=== PATIENT | male | born 1970 | race Caucasian/White ===

== ENCOUNTER → 2018-03-06 11:13 | Outpatient (CLI) | payer MEDICARE, MEDICAID, SELFPAY ==
--- NOTE | 2018-03-06 11:18 | DI.RAD.S_ITS ---
PROCEDURE: XR HAND RT MIN 3V INDICATIONS: 47 year-old male with right thumb swelling after trauma. TECHNIQUE: 3 views of the hand(s) acquired. COMPARISON: None. FINDINGS: Bones: Comminuted oblique fracture of the first proximal phalangeal shaft and neck is present, with possible intra-articular extension into the interphalangeal joint. There is age indeterminate comminuted fracture of the third distal phalangeal tuft as well, with mild displacement. Carpal bones are normally aligned. No suspicious bony lesions. Soft tissues: No suspicious soft tissue calcifications. IMPRESSION: 1. Mildly displaced comminuted oblique fracture of the first phalangeal shaft and neck, with possible intra-articular extension. 2. Additional mildly displaced comminuted fracture of the third distal phalangeal tuft. Dictated by: Jevon Ochoa M.D. on 03/06/2018 at 12:05 Approved by: Jevon Ochoa M.D. on 03/06/2018 at 12:11
[2018-03-06 12:33] LABS: Cholesterol 197 mg/dL (140-199); HDL Cholesterol 61 mg/dL (40-60); LDL Cholesterol Calculated 119 mg/dL (<100); Triglycerides 86 mg/dL (35-150)
== END ==
PROVIDERS: PCP Family Medicine; Visit Provider Family Medicine
DX: Z82.49 Family history of ischemic heart disease and other diseases of the circulatory system (principal); M79.89 Other specified soft tissue disorders
CPT/HCPCS: 36415; 73130; 80061

== ENCOUNTER 2018-03-21 12:13 | Outpatient (RCR) | payer MEDICARE, MEDICAID, SELFPAY ==
--- NOTE | 2018-03-22 15:17 | OT.OP.EVAL ---
Visit Care Team Role Provider Type Jyotsna Sky DO Attending Provider Physician Primary Care Provider Specialty: Family Practice Address: [address] [place] [address], [id number] Email: [email or web address] Occupational Therapy Initial Evaluation OT Outpatient Adult Evaluation Start: 03/22/18 14:36 Freq: Status: Active Protocol: Document 03/21/18 13:30 AMS (Rec: 03/22/18 15:17 AMS [email or web address]) General Information Visit Start Time 12:30 Visit Stop Time 13:30 Total Visit Minutes 60 Visit Number [id number] Plan of Care Dates 03/21/18-05/02/18 Treatment Setting Outpatient Care Note Type Initial Evaluation Referring Physician Jyotsna kSy D.O. Reason for Referral Right thumb fracture; decreased ROM of R thumb Identification Confirmed Yes Identification Confirmed By Mother Medical History Pt is a 47 year-old male referred to outpatient OT secondary to right thumb fracture with orders to address ROM. Per Mother's written report (Health History intake form for patient), Aniceto broke his right thumb approximately 1 and 1/2 months ago from seizure fall. Patient and his parents did not know the thumb was broken until recently. PMH: static encephalopathy; seizure disorder. Right hand x-ray was performed on 03/06/2018: Impression was as follows: Mildly displaced comminuted oblique fracture of the first phalangeal shaft and neck with possible intra-articular extension. Additional mildly displaced comminuted fracture of the third distal phalangeal tuft. Previous Therapy/Therapies No Social History Patient resides with his parents. Therapy Pain Assessment When Pain Assessed pre-tx Right Finger Intensity 0 Scale Used Numeric (1 - 10) Patient Questionnaires Quick Dash UE Score 0 Quick Dash UE Impairment 0% Impaired (Score 0) ADLs Comments Injury is not impacting function IADLs Comments Injury is not impacting function Observations Swelling Location Right hand Severity Mild Range of Motion Left IP Flex AROM (degrees) 80 Comments Able to actively oppose L thumb to base of L 5th digit. Able to actively oppose L thumb to each pad of digits 2- 5 of L hand. Right IP Flex AROM (degrees) 50 IP Flex PROM (degrees) 60 IP Ext AROM (degrees) WNL Comments Able to actively oppose R thumb to middle phalanx of R 5th digit; unable to actively oppose R thumb to base of R 5th digit. Able to actively oppose R thumb to each pad of digits 2-5 of R hand. Muscle Testing Right Thumb Flexion (fingers C8) 5 Normal Extension (thumb C8) 5 Normal Adduction 5 Normal Abduction (fingers T1) 5 Normal Sensation Assessment Summary Comments Impaired sensation. Mother reported that Aniceto has a ' high pain tolerance'. (-) verbal or non-verbal response to ice massage x 4 minutes for demonstration relative to it being cold. (-) verbal or non- verbal response to initial crepitus with passive range of motion of thumb in the IPJ noted by therapist. (-) awareness of mild swelling present in distal right third digit and right thumb. (-) recent icing. Patient reported icing it for 2 weeks daily initially. Fine Motor Hand Preference Right Goals Treatment Therapeutic exercises. HEP initiated/completed. Education completed in re: swelling management. Instructed in light manual massage and use of ice massage as tolerated. Discussed edema garment options; however, given reported exacerbation of skin condition w/ increased temperatures - therapist discouraged use/personal purchase. Instructed in active ROM and positioning to support swelling management. Instructed in joint blocking w / focus on IPJ AROM; functional AROM of right thumb (opposition/circles). Instructed in PROM. Patient and Mother denied questions; Mother wrote down donovan words and will support carry-over. Nursing Home Goals 1. Patient will be modified independent with right thumb/ hand home exercise program utilizing provided written and visual instructions. Assessment/Plan Patient Response Good Rehabilitation Potential Good Impairments Identified Coordination/Dexterity Flexibility Range of Motion Swelling Additional Impairments Identified Impaired sensation Treatment Assessment Pt is a 47 year-old male referred to outpatient OT secondary to right thumb fracture with orders to address ROM. Per Mother's written report (Health History intake form for patient), Aniceto broke his right thumb approximately 1 and 1/2 months ago from seizure fall. Patient and his parents did not know the thumb was broken until recently. PMH: static encephalopathy; seizure disorder. Right hand x-ray was performed on 03/06/2018: Impression was as follows: Mildly displaced comminuted oblique fracture of the first phalangeal shaft and neck with possible intra-articular extension. Additional mildly displaced comminuted fracture of the third distal phalangeal tuft. Findings: Right hand dominant ; injury is not impacting function (relative to ADLs); no pain/discomfort; normal strength of right thumb; impaired sensation; mild swelling; decreased active range of motion of the right thumb; decreased functional ROM of the right thumb. Recommendations: Discussed scheduling of follow-up appointment with patient and Mother to address progress. Mother reported that she would like to focus on current HEP and make follow-up in 2-3 weeks if needed. Thus, therapist to follow-up as needed. Home Exercise Program HEP initiated/completed. Education completed in re: swelling management. Instructed in light manual massage and use of ice massage as tolerated. Discussed edema garment options; however, given reported exacerbation of skin condition w/ increased temperatures - therapist discouraged use/personal purchase. Instructed in active ROM and positioning to support swelling management. Instructed in joint blocking w / focus on IPJ AROM; functional AROM of right thumb (opposition/circles). Instructed in PROM. Patient and Mother denied questions; Mother wrote down donovan words and will support carry-over. Reviewed with Patient Goals Home Exercise Program Patient Understanding Good Length of Treatment Recommended Other Comment 6 weeks; follow-up if needed Therapeutic Contents Active Range of Motion Client Education Home Exercise Program Manual Therapy Education Stretching/Flexibility Activities Therapeutic Activities Therapeutic Exercises Modalities Modalities As Needed As Described Types of Modalities Contrast Bath Ice Massage Ultrasound Patient Instruction Home Exercise Program Plan of Care Questions/Concerns Other Patient Recommendations Other Comment Mother to schedule follow-up appt if determined necessary in ~ 2-3 weeks
--- NOTE | 2018-04-22 07:59 | OT.OP.TRT ---
Visit Care Team Role Provider Type Jyotsna Sky DO Attending Provider Physician Primary Care Provider Specialty: Family Practice Address: [address] [place] [address], [address] Email: [email or web address] Occupational Therapy Treatment Note OT Outpatient Treatment Note - Adult Start: 04/22/18 07:53 Freq: Status: Active Protocol: Document 04/22/18 07:54 AMS (Rec: 04/22/18 07:58 AMS [id number]) OT Outpatient Adult Treatment Note Visit Information Plan of Care Dates 03/21/18-05/02/18 Setting Treatment Setting Outpatient Care General Information General Information Pt is a 47 year-old male referred to outpatient OT secondary to right thumb fracture with orders to address ROM. Per Mother's written report (Health History intake form for patient), Aniceto broke his right thumb approximately 1 and 1/2 months ago from seizure fall. Patient and his parents did not know the thumb was broken until recently. PMH: static encephalopathy; seizure disorder. - Subjective Observations Patient to be discharged from Occupational Therapy secondary to not being seen by primary therapist since time of initial evaluation (03/21/18). - Objective Care Home Goals ALL GOALS DISCHARGED 1. Patient will be modified independent with right thumb/ hand home exercise program utilizing provided written and visual instructions. *Patient was mod I w/ HEP developed at time of initial evaluation. HEP was not upgraded due to patient not being seen for follow-up visit(s). - - Assessment Assessment of Improvement Patient to be discharged from Occupational Therapy secondary to not being seen by primary therapist since time of initial evaluation (03/21/18). - Plan Therapy Recommendations Discharge from Occupational Therapy
== END 2018-05-09 13:32 ==
LOC: OT 12:13
PROVIDERS: PCP Family Medicine; Visit Provider Family Medicine
DX: S62.501A Fracture of unspecified phalanx of right thumb, initial encounter for closed fracture (principal); M25.641 Stiffness of right hand, not elsewhere classified
CPT/HCPCS: 97110; 97165

== ENCOUNTER → 2019-04-25 10:48 | Outpatient (CLI) | payer MEDICARE, MEDICAID, SELFPAY ==
[2019-04-25 12:15] LABS: Add Manual Diff / Slide Review NO; Basophils Absolute Auto 0 /uL (0-100); Basophils Percent Auto 0.4 % (0-2); Eosinophils Absolute Auto 400 /uL (0-450); Eosinophils Percent Auto 6.6 % (2-4); Hematocrit 44.1 % (41-53); Lymphocytes Absolute Auto 1800 /uL (1100-4500); Lymphocytes Percent Auto 29.4 % (25-40); Mean Corpuscular HGB Conc 34.1 % (30-36); Mean Corpuscular Volume 96.6 fL (80-100); Monocytes Absolute Auto 400 /uL (0-900); Monocytes Percent Auto 6.4 % (3-14); Neutrophils Absolute Auto 3500 /uL (1500-7000); Neutrophils Percent Auto 57.2 % (50-75); Platelet Count 276 X10^3/uL (150-400); Red Blood Cell Count 4.56 X10^6/uL (4.5-5.9); Red Cell Distribution Width 12.6 % (11.6-14.8); White Blood Cell Count 6.1 X10^3/uL (4.5-11.0)
[2019-04-25 13:02] LABS: Alanine Aminotransferase 29 IU/L (21-72); Albumin 4.1 g/dL (3.5-5.0); Albumin Globulin Ratio 1.3 (1.0-2.8); Alkaline Phosphatase 77 U/L (38-126); Aspartate Aminotransferase 26 IU/L (17-59); Bilirubin Total 0.5 mg/dL (0.2-1.3); Bilirubin Unconjugated 0.3 mg/dL (0.0-1.1); Globulin 3.1 g/dL (1.7-4.1); HEMOLYSIS < 15 (0-50); Phenytoin / Dilantin 16.7 ug/mL (10-20); Total Protein 7.2 g/dL (6.3-8.2)
[2019-04-29 11:07] LABS: Levetiracetam Keppra 9.1 mcg/mL (12.0-46.0)
== END ==
PROVIDERS: Family Provider Family Medicine; PCP Family Medicine; Visit Provider Internal Medicine
DX: R56.9 Unspecified convulsions (principal)
CPT/HCPCS: 36415; 80076; 80177; 80184; 80185; 80188; 80203; 85025

== ENCOUNTER 2019-04-27 22:56 | Emergency (ER) | payer MEDICARE, MEDICAID, SELFPAY ==
[2019-04-27 23:08] VITALS: BP 129/95; PULSE 86; RESP 18; TEMP 36.9; O2SAT 96; BMI 35.1
--- NOTE | 2019-04-27 23:55 | ED_ITS ---
HPI - Ear Problem General Chief complaint: Ear Stated complaint: q-tip stuck in ear Time Seen by Provider: 04/27/19 23:00 Source: patient and family Mode of arrival: ambulatory Limitations: no limitations History of Present Illness HPI Narrative: 48M non smoker with history of seizures and developmental delay presents with both parents and the chief complaint of a portion of cotton from a Q tip stuck in his left ear since earlier today. He has no pain, drainage or bleeding. No change in level of hearing. MD Complaint: foreign body Location: left ear Duration: constant Severity: mild Relieving factors: nothing Exacerbating factors: nothing Discharge from ear: no Treatment prior to arrival: none Related Data Home Medications Medication Instructions Recorded Confirmed CA PANTOTHENATE/FOLIC ACID/VIT 1 tab PO QDAY #0 08/31/11 06/24/18 (MULTIVITAMIN) lorazepam 0.5 mg tablet 0.5 mg PO BEDTIME 03/05/18 06/24/18 triamcinolone acetonide 0.1 % 1 applictn TOP DAILY 03/05/18 06/24/18 topical cream guifenisen PO 06/24/18 06/24/18 Previous Rx's Medication Instructions Recorded levetiracetam 1,000 mg tablet 1,000 mg PO TID #270 tabs 01/23/19 primidone 250 mg tablet 250 mg PO TID #270 tab 01/23/19 phenytoin sodium extended 100 mg See Rx Instructions PO .COMPLEX 03/21/19 capsule #270 cap zonisamide 100 mg capsule See Rx Instructions PO .COMPLEX 03/21/19 #450 cap Allergies Allergy/AdvReac Type Severity Reaction Status Date / Time No Known Drug Allergies Allergy Verified 04/27/19 23:08 Review of Systems Constitutional Denies chills, Denies fever(s), Denies lethargy and Denies weakness Eyes Denies change in vision, Denies eye discharge, Denies irritation and Denies loss of vision ENT Ears, Nose, Mouth, and Throat: Reports as per HPI, Denies change in voice, Denies neck pain and Denies sore throat Cardiovascular Denies chest pain, Denies irregular heart rhythm, Denies lightheadedness, Denies palpitations, Denies dyspnea, Denies dyspnea on exertion and Denies orthopnea Respiratory Denies cough, Denies dyspnea, Denies dyspnea on exertion and Denies wheezing Gastrointestinal Gastrointestinal: Denies abdominal pain, Denies change in bowel habits, Denies diarrhea, Denies nausea and Denies vomiting Genitourinary Denies hematuria, Denies flank pain, Denies urinary incontinence and Denies urinary urgency Musculoskeletal Denies neck pain Integumentary/Breasts Denies pruritus, Denies erythema, Denies rash and Denies wounds Neurologic Denies confusion, Denies loss of vision and Denies weakness Psychiatric Denies anxiety, Denies confusion, Denies depression, Denies homicidal ideation and Denies suicidal ideation Endocrine Denies palpitations Hematologic/Lymphatic Denies easy bruising Allergic/Immunologic Denies wheezing [facility] Medical History Hemorrhoid (Chronic ~02/15/14) Seizure (Chronic) Static encephalopathy (Chronic) Family History Father CAD (coronary artery disease) Mother CAD (coronary artery disease) Social History Smoking Status: Never smoker Family History Father CAD (coronary artery disease) Mother CAD (coronary artery disease) Social History Smoking Status: Never smoker Exam Narrative Exam Narrative: GEN: AOx3 and in mild distress EYES: Pupils are equal, round, and reactive to light and accommodation. Extraoccular muscles are intact bilaterally. There is no subconjunctival hemorrhage or exudate. ENT: cotton swab noted deep in Left external auditory canal, no swelling, bleeding, or discharge CHEST: Lungs are clear to auscultation bilaterally and free of wheezes, rales, or rhonchi. Heart rate is regular rhythm, there are no murmurs, clicks, rubs, or gallops. There is no chest wall tenderness. ABD: Abdomen is soft and nontender. There is no guarding or rebound. Bowel sounds are normal in all 4 quadrants. There is no mass or organomegaly. EXT: Full painless ROM of all extremities with no loss of sensation or strength. SKIN: Warm, pink, and dry. No erythema or rash Initial Vital Signs Initial Vital Signs: Vital Signs Temperature 98.4 F 04/27/19 23:08 Pulse Rate 86 08/04/19 23:08 Respiratory Rate 18 04/27/19 23:08 Blood Pressure 129/95 H 04/27/19 23:08 Pulse Oximetry 96 04/27/19 23:08 Procedures Foreign Body EAR Location: ear canal (L) Foreign Body Suspected: other TM intact pre-procedure: yes Foreign Body Removal Technique: instrumentation Tympanic Membrane Intact Post Procedure: Yes Patient Tolerated Procedure: Well Complications: none Course Vital Signs - 8 hr 04/27/19 23:08 Temperature 98.4 F Pulse Rate 86 Respiratory Rate 18 Blood Pressure 129/95 H Pulse Oximetry 96 Discharge Plan Departure Patient Disposition: Home Clinical Impression: Foreign body of ear, left Qualifiers: Encounter type: initial encounter Qualified Code(s): T16.2XXA - Foreign body in left ear, initial encounter Instructions: DI for Removal of Foreign Body From Ear Activity Restrictions/Additional Instructions: *You have been diagnosed with [removal of foreign body from left ear] *What to do: * continue to take medications as directed *Follow up with your primary care provider in 2-3 days, call for an appointment. Let them know you were seen in the Emergency Department and that we ask that you be seen in follow up *Return to ER if you should have any new, worsening or concerning symptoms Prescriptions: No Action CA PANTOTHENATE/FOLIC ACID/VIT (MULTIVITAMIN) 1 tab PO QDAY Qty: 0 RF: 0 levetiracetam [Keppra] 1,000 mg tablet 1,000 mg PO TID Qty: 270 RF: 0 primidone 250 mg tablet 250 mg PO TID Qty: 270 RF: 0 zonisamide 100 mg capsule See Rx Instructions PO .COMPLEX Qty: 450 RF: 0 phenytoin sodium extended [Dilantin Extended] 100 mg capsule See Rx Instructions PO .COMPLEX Qty: 270 RF: 0 triamcinolone acetonide 0.1 % cream 1 applictn TOP DAILY RF: 0 lorazepam 0.5 mg tablet 0.5 mg PO BEDTIME RF: 0 guifenisen PO RF: 0 Referrals: Damion López MD [Physician] - Jyotsna Sky DO [Primary Care Provider] -
== END 2019-04-28 00:04 | disposition home or self-care (01) ==
PROVIDERS: Emergency Provider Emergency Medicine; Family Provider Family Medicine; PCP Family Medicine
DX: T16.2XXA Foreign body in left ear, initial encounter (principal)
CPT/HCPCS: 99282

== ENCOUNTER → 2020-05-27 11:11 | Outpatient (CLI) | payer MEDICARE, MEDICAID, SELFPAY ==
[2020-05-27 13:01] LABS: Add Manual Diff / Slide Review NO; Basophils Absolute Auto 0 /uL (0-100); Basophils Percent Auto 0.4 % (0-2); Eosinophils Absolute Auto 200 /uL (0-450); Eosinophils Percent Auto 4.1 % (2-4); Hematocrit 43.6 % (41-53); Hemoglobin 14.6 g/dL (13.5-17.5); Lymphocytes Absolute Auto 1700 /uL (1100-4500); Lymphocytes Percent Auto 29.5 % (25-40); Mean Corpuscular HGB Conc 33.6 % (30-36); Mean Corpuscular Hemoglobin 32.4 PG (26-34); Mean Corpuscular Volume 96.6 fL (80-100); Monocytes Absolute Auto 400 /uL (0-900); Neutrophils Absolute Auto 3300 /uL (1500-7000); Platelet Count 264 X10^3/uL (150-400); Red Blood Cell Count 4.52 X10^6/uL (4.5-5.9); Red Cell Distribution Width 12.5 % (11.6-14.8); White Blood Cell Count 5.6 X10^3/uL (4.5-11.0)
[2020-05-27 13:25] LABS: Phenytoin / Dilantin 20.2 ug/mL (10-20)
[2020-06-01 06:05] LABS: Levetiracetam Keppra 11.7 ug/mL (10.0-40.0)
[2020-06-03 11:36] LABS: Zonisamide 17.4 ug/mL (10.0-40.0)
== END ==
PROVIDERS: Family Provider Family Medicine; PCP Family Medicine; Referring Provider Internal Medicine; Visit Provider Internal Medicine
DX: R56.9 Unspecified convulsions (principal)
CPT/HCPCS: 36415; 80177; 80184; 80185; 80188; 80203; 85025

== ENCOUNTER → 2021-04-11 10:43 | Outpatient (CLI) | payer MEDICARE, MEDICAID, SELFPAY ==
[2021-04-11 11:23] LABS: Add Manual Diff / Slide Review NO; Basophils Absolute Auto 0 /uL (0-100); Basophils Percent Auto 0.4 % (0-2); Eosinophils Absolute Auto 500 /uL (0-450); Eosinophils Percent Auto 7.1 % (2-4); Hematocrit 44.1 % (41-53); Lymphocytes Absolute Auto 2000 /uL (1100-4500); Lymphocytes Percent Auto 30.6 % (25-40); Monocytes Absolute Auto 500 /uL (0-900); Monocytes Percent Auto 7.4 % (3-14); Neutrophils Absolute Auto 3500 /uL (1500-7000); Neutrophils Percent Auto 54.5 % (50-75); Platelet Count 245 X10^3/uL (150-400); Red Blood Cell Count 4.54 X10^6/uL (4.5-5.9); Red Cell Distribution Width 12.7 % (11.6-14.8); White Blood Cell Count 6.4 X10^3/uL (4.5-11.0)
[2021-04-11 11:32] LABS: Alanine Aminotransferase 22 IU/L (<50); Albumin 4.1 g/dL (3.5-5.0); Albumin Globulin Ratio 1.4 (1.0-2.8); Alkaline Phosphatase 71 U/L (38-126); Aspartate Aminotransferase 26 IU/L (17-59); BUN Creatinine Ratio 17.7 (6-22); Bilirubin Total 0.3 mg/dL (0.2-1.3); Blood Urea Nitrogen 14 mg/dL (9-20); Calcium 8.8 mg/dL (8.4-10.2); Carbon Dioxide 27 mmol/L (22-32); Chloride 108 mmol/L (98-107); Cholesterol 188 mg/dL (140-199); Estimated Glomerular Filt Rate > 60.0 mL/min (>60); Glucose 93 mg/dL (70-100); HDL Cholesterol 66 mg/dL (40-60); HEMOLYSIS < 15 (0-50); LDL Cholesterol Calculated 104 mg/dL (<100); Sodium 141 mmol/L (137-145); Total Protein 7.1 g/dL (6.3-8.2); Triglycerides 90 mg/dL (35-150)
== END ==
PROVIDERS: Family Provider Family Medicine; PCP Family Medicine; Referring Provider Family Medicine; Visit Provider Family Medicine
DX: E78.5 Hyperlipidemia, unspecified (principal); E66.9 Obesity, unspecified; G40.919 Epilepsy, unspecified, intractable, without status epilepticus; Z12.5 Encounter for screening for malignant neoplasm of prostate
CPT/HCPCS: 36415; 80053; 80061; 85025; G0103

== ENCOUNTER → 2021-04-12 13:32 | Outpatient (CLI) | payer MEDICARE, MEDICAID, SELFPAY ==
[2021-04-13 15:36] LABS: Fecal Immunochemical Test Positive (Negative)
== END ==
PROVIDERS: Family Provider Family Medicine; PCP Family Medicine; Referring Provider Family Medicine; Visit Provider Family Medicine
DX: Z12.11 Encounter for screening for malignant neoplasm of colon (principal)
CPT/HCPCS: 82274

== ENCOUNTER → 2021-05-06 11:25 | Outpatient (CLI) | payer MEDICARE, MEDICAID, SELFPAY ==
[2021-05-06 12:50] LABS: Phenytoin / Dilantin 17.4 ug/mL (10-20)
[2021-05-09 14:35] LABS: Zonisamide 15.2 ug/mL (10.0-40.0)
[2021-05-10 10:26] LABS: Levetiracetam Keppra 11.1 ug/mL (10.0-40.0)
== END ==
PROVIDERS: Family Provider Family Medicine; PCP Family Medicine; Referring Provider Internal Medicine; Visit Provider Internal Medicine
DX: R56.9 Unspecified convulsions (principal); R62.50 Unspecified lack of expected normal physiological development in childhood
CPT/HCPCS: 36415; 80177; 80184; 80185; 80188; 80203

== ENCOUNTER → 2021-06-10 10:21 | Outpatient (CLI) | payer MEDICARE, MEDICAID, SELFPAY ==
[2021-06-10 11:56] LABS: COVID19 -Nasal RAPID Negative (Negative)
== END ==
PROVIDERS: Family Provider Family Medicine; PCP Family Medicine; Visit Provider Surgery
DX: Z01.812 Encounter for preprocedural laboratory examination (principal); Z20.822 Contact with and (suspected) exposure to COVID-19
CPT/HCPCS: 87635; C9803

== ENCOUNTER 2021-06-13 09:44 | Day surgery (SDC) | payer MEDICARE, MEDICAID, SELFPAY ==
--- NOTE | 2021-06-13 | PATH_ITS ---
[facility] Accession Number: [id number] . 01 Material submitted: . PART A: colon - DESCENDING COLON POLYP PART B: colon - DESCENDING COLON POLYP 1CM PART C: rectum - RECTAL POLYP 20 CM . 02 Diagnosis: A. Descending Colon, Polyp, Biopsy: Tubular adenoma. . B. Descending Colon, Polyp 1 cm, Biopsy: Invasive adenocarcinoma, moderately to poorly differentiated, arising in a background of high-grade dysplasia. Focally positive for lymphovascular invasion. Adenocarcinoma approximates deep inked margin. High-grade dysplasia is present at peripheral mucosal margins. Please see comment. . C. Rectum, Polyp 20 cm, Biopsy: Tubulovillous adenoma with high-grade dysplasia. No evidence of invasive carcinoma. Please see comment. [facility] 06/16/2021 1332 Local . 02 Comment: B) Mismatch repair IHC will be performed and the results reported as an addendum. As part of routine associate quality engineer, Dr. Castillo also reviewed this case and agrees with the diagnosis. Dr. Rinaldi gave preliminary results to Yulissa in Dr. Hannah's office on 06/15/2021. . C) As part of routine associate quality engineer, Dr. Castillo also reviewed this case and agrees with the diagnosis. Dr. Rinaldi gave preliminary results to Yulissa in Dr. Hannah's office on 06/15/2021. . 02 Electronically signed: . Prema Rinaldi MD, Pathologist NPI- [id number] . 01 Gross description: . Part A: DESCENDING COLON POLYP: Received in formalin is 1 fragment(s) of howell, soft tissue measuring 0.4 x 0.3 x 0.2 cm submitted entirely in 1 cassette(s) Part B: DESCENDING COLON POLYP 1CM: Received in formalin is 1 fragment(s) of howell, soft tissue measuring 1.5 x 1.5 x 0.5 cm which is inked, serially sectioned and submitted entirely in 1 cassette(s) Part C: RECTAL POLYP 20 CM: Received in formalin are multiple fragment(s) of howell, soft tissue measuring 6.0 x 0.6 x 1.0 cm in aggregate which are inked, serially sectioned and submitted entirely in 5 cassette(s) /KASSANDRA 06/14/2021 0254 Local . 02 Microscopic: . B) A D2-40 immunohistochemical stain was performed to characterize lymphovascular spaces. D2-40 highlights occasional lymphovascular spaces with a a few containing carcinoma cells in block B. The control stain showed appropriate reactivity. . * This test was developed and its performance characteristics determined by [employer]. It has not been cleared or approved by the U.S. Food and Drug Administration. The FDA has determined that such clearance or approval is not necessary. This test is used for clinical purposes. It should not be regarded as investigational or for research. . 02 Pathologist provided ICD-10: D12.4, C18.9, D12.8 . 02 CPT . 823516, 596088, 443104, J82659, A38990 Performed at: 01 [facility] [address] [facility], [place], [place] [id number] MD Greg Gilbert MD Phone: [phone] Performed at: 02 [facility] [address] [place], [place] [id number] MD Prema Rinaldi MD Phone: [phone]
[2021-06-13 10:20] VITALS: BP 127/84; PULSE 77; RESP 18; TEMP 36.7; O2SAT 98
[2021-06-13] MEDS: LACTATED RINGERS 1,000 ML 200 ML IV (10:38)
--- NOTE | 2021-06-13 10:53 | PM.PREOP ---
Pre-operative Note Interval Note History & Physical reviewed/Exam performed by Physician: Yes Changes to H&P: No
[2021-06-13] MEDS: fentaNYL 250 MCG/5 ML INJ IV (10:59)
[2021-06-13] MEDS: MIDAZOLAM 5 MG/5 ML VIAL IV (11:01)
--- NOTE | 2021-06-13 11:52 | P.OP.ENDO_ITS ---
Operative Date/Time/Diagnoses Date of procedure: 06/13/21 Time of procedure: 11:52 Pre-op diagnosis: Positive fit Post-op diagnosis: same Procedure & Clinicians Study performed: Colonoscopy Same procedure as scheduled: Yes Indications: Positive fit Surgeon: Harjinder Hannah Procedure Notes Procedure in detail: Medications: Conscious sedation using 4mg IV midazolam and 50mcg IV of fentanyl The history and physical was performed/updated and the patient is ASA class is 2. The procedure was discussed in detail with the patient. Potential risks complications including infection, bleeding, missed diagnosis, perforation, need for surgery, and were explained. Their questions were answered and informed consent was obtained. Patient was brought to the procedure room and placed standard monitoring equipment. The patient's vital signs were monitored continuously throughout the entire procedure. Prior to starting time-out was performed. The patient was placed in the left lateral recumbent position. Procedural sedation was admin istered. Examination began with a thorough inspection of the perianal area there was no evidence of fissures, fistulae, external hemorrhoids or cutaneous malignancy. The colonoscopy scope was then placed into the anal canal and was advanced to the cecum, which was identified by the ileocecal valve, the appendiceal orifice and the confluence of the taenia. The scope was then slowly withdrawn examining colon thoroughly in all directions, irrigating it of any residual stool. FINDINGS 1. 5 mm descending colon polyp removed with cold snare 2. 1-2 cm descending colon polyp removed with cold snare. Site tattooed distal to the lesions with 4 ml ink in submucosal space 3. 3 cm wide base polyp rectum removed in piece with hot snare. The entirety of the base could not be removed despite attempting to rasie it with ink injection. Probably 75% of the lesion removed in pieces. Non circumferential probably 30% circumference at 20 cm from the anal verge. site tattooed with 4 ml of ink in the submucosal space. The patient tolerated the procedure well. They will be discharged once criteria are met. The prep was of good/excellent quality. The withdrawl time was * minutes. The sedation time was * minutes. Specimen(s): other (rectal, descending colon x 2) Complications: none Impression: colonic polyps Post-procedure Plan for aftercare: pending pathology may need referal for advanced endoscopy for completion polypectomy Disposition: same day surgery
[2021-06-13 11:55] VITALS: BP 149/90; PULSE 75; RESP 13; TEMP 36.9; O2SAT 99
[2021-06-13 12:00] VITALS: BP 144/82; PULSE 77; RESP 13; O2SAT 99
[2021-06-13 12:03] VITALS: BP 137/86; PULSE 77; RESP 12; O2SAT 99
[2021-06-13 12:09] VITALS: BP 137/86; PULSE 86; RESP 12; O2SAT 99
[2021-06-13 12:25] VITALS: BP 128/84; PULSE 79; RESP 16; TEMP 36.4; O2SAT 93
== END 2021-06-13 12:40 | disposition home or self-care (01) ==
PROVIDERS: Family Provider Family Medicine; PCP Family Medicine; Referring Provider Surgery; Visit Provider Surgery
PROC: 0DJD8ZZ Inspection of Lower Intestinal Tract, Via Natural or Artificial Opening Endoscopic (ICD-10-PCS; CPT 45378; principal; 2021-06-13 10:45)
DX: C18.6 Malignant neoplasm of descending colon (principal); D12.8 Benign neoplasm of rectum; D12.4 Benign neoplasm of descending colon; R19.5 Other fecal abnormalities; R56.9 Unspecified convulsions
CPT/HCPCS: 45385; 45381; J2250; J3010

== ENCOUNTER → 2021-06-21 14:15 | Outpatient (CLI) | payer MEDICARE, MEDICAID, SELFPAY ==
[2021-06-21 15:27] LABS: Carcinoembryonic Antigen 2.4 ng/mL (0.1-3.0)
== END ==
PROVIDERS: Family Provider Family Medicine; PCP Family Medicine; Referring Provider Surgery; Visit Provider Surgery
DX: C18.9 Malignant neoplasm of colon, unspecified (principal)
CPT/HCPCS: 36415; 82378

== ENCOUNTER → 2021-06-23 10:02 | Outpatient (CLI) | payer MEDICARE, MEDICAID, SELFPAY ==
--- NOTE | 2021-06-23 10:52 | DI.CT.S_ITS ---
PROCEDURE: CT CHEST ABD PEL W CON INDICATIONS: colon cancer staging TECHNIQUE: After the administration of intravenous contrast, 5 mm thick sections acquired from the lung apices to the symphysis. 5 mm coronal and sagittal reformats were performed, with additional 7 mm MIP reformats through the lungs. For radiation dose reduction, the following was used: automated exposure control, adjustment of mA and/or kV according to patient size. COMPARISON: None. FINDINGS: Image quality: 3 mm pulmonary nodule, posterior right upper lobe, image 174/3. 4 mm pleural based pulmonary nodule, right lower lobe, image 234/3. 3 mm pulmonary nodule, pleural based, right lower lobe, image 242/3. CHEST: Lungs and pleura: No acute airspace opacities. No pleural effusions or pneumothorax. Central and peripheral airways appear patent and normal in caliber. Mediastinum: Heart size is normal. No pericardial effusion. No mediastinal or hilar adenopathy by size criteria. Thoracic aorta and central pulmonary arteries are normal in size. Esophagus is normal in caliber. No hiatal hernia. Chest wall: No axillary or supraclavicular adenopathy by size criteria. Thyroid gland is unremarkable . ABDOMEN: Solid organs: Liver is normal in size and enhancement. Gallbladder is unremarkable . Biliary system is non dilated. Pancreas enhances normally. Spleen is normal in size and enhancement. 3 cm left adrenal adenoma. 1 cm right adrenal adenoma.. Kidneys demonstrate normal size and enhancement, without hydronephrosis. Peritoneum and bowel: Question polypoid rectal mass. This is not definite. No free fluid or air. Nodes and vessels: There is a lymph node in the mesenteric fat to the left of midline in the mid to lower abdomen on image 93/2, which measures 1.5 cm. Adjacent to this is a 2nd lymph node which measures 0.9 cm. Aorta and inferior vena cava are normal in size. Miscellaneous: No ventral hernias. PELVIS: Genitourinary: Diffuse bladder wall thickening, consistent with cystitis. Miscellaneous: No inguinal hernias or adenopathy. Bones: No suspicious bony lesions. No vertebral body compression fractures. IMPRESSION: 1. In this patient with a given diagnosis of colon cancer, there is an area in the rectum which may potentially represent a lesion. I do not have the benefit of a report describing where the lesion happens to be located. 2. There are 2 separate lymph nodes in close proximity in the mesenteric fat which are suspicious by size criteria for potential metastatic disease. This is not definite. 3. No liver metastatic disease. No metastatic disease in the chest. 4. Diffuse thickening of the bladder suggest cystitis. Comment: PET-CT may be helpful to evaluate the enlarged lymph nodes described. Dictated by: Ben Greco M.D. on 06/23/2021 at 11:11 Approved by: Ben Greco M.D. on 06/23/2021 at 11:21
== END ==
PROVIDERS: Family Provider Family Medicine; PCP Family Medicine; Referring Provider Surgery; Visit Provider Surgery
DX: C18.9 Malignant neoplasm of colon, unspecified (principal); R91.8 Other nonspecific abnormal finding of lung field; R59.0 Localized enlarged lymph nodes
CPT/HCPCS: 71260; 74177; Q9967

== ENCOUNTER 2021-07-26 06:29 | Inpatient (IN) | payer MEDICARE, MEDICAID, SELFPAY ==
[2021-07-20 12:48] VITALS: BMI 33.7
[2021-07-26] VITALS (13 sets, daily range): BP systolic 100–129; BP diastolic 63–83; PULSE 78–98; RESP 7–20; TEMP 36.1–36.6; O2SAT 93–99; BMI 33.7
--- NOTE | 2021-07-26 | PATH_ITS ---
[facility] Accession Number: [id number] . 01 Material submitted: . PART A: colon - SIGMOID PLUS RECTUM PART B: anastomosis - ANASTOMOTIC DONUT . 01 Clinical history: . COLON RESECTION A: STITCH GILLIS PROXIMAL JACQUELINE . 02 Diagnosis: A. Sigmoid Colon Plus Rectum, Sigmoid Colectomy and Low Anterior Resection: Invasive adenocarcinoma; see Cancer Case Summary. 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 . B. Anastomotic Donut, Excision: Colonic tissue with no diagnostic abnormality. No evidence of neoplasm. . . CANCER CASE SUMMARY - COLON AND RECTUM . . Procedure: Sigmoidectomy and low anterior resection. Tumor Site: Sigmoid colon. Histologic Type: Adenocarcinoma. Histologic Grade: G2, moderately differentiated. Tumor Size: 0.6 cm, as measured on glass slide. Multiple Primary Sites: Not applicable. Tumor Extent: Invades submucosa. Macroscopic Tumor Perforation: Not identified. Lymphovascular Invasion: Large vessel, extramural - seen adjacent to positive lymph node in pericolonic adipose tissue (block A7). Perineural Invasion: Not identified. Type of Polyp in Which Invasive Carcinoma Arose: Tubulovillous adenoma. Treatment Effect: No known presurgical therapy. . Margins: Margin Status for Invasive Carcinoma: All margins negative for invasive carcinoma. Margin status for Non-invasive Tumor: All margins negative for dysplasia. . Regional Lymph Nodes: Regional Lymph Node Status: Regional lymph nodes present. Number of Lymph Nodes with Tumor: 1. Number of Lymph Nodes Examined: 11. . Tumor Deposits: Not identified. . Pathologic Stage Classification (pTNM, AJCC 8th Edition): TNM Descriptors: Not applicable. pT Category: pT1. pN Category: pN1a. . Additional Findings: Adenoma - tubulovillous adenoma with high-grade dysplasia present within rectal portion of specimen. There is no evidence of invasive carcinoma at this site. . Special Studies: . . Comments: Immunohistochemical stains for DNA mismatch repair proteins were performed on the prior specimen ([id number]; 06/14/2021), which showed intact nuclear expression of MLH1, PMS2, MSH2 and MSH6. Please see that report for complete details. [facility] 08/01/2021 1426 Local . 02 Electronically signed: . Maninder Randall MD, PhD, Pathologist NPI- [id number] . 01 Gross description: . A. Received in formalin labeled with the patient's name and sigmoid plus rectum is a 30 cm segment of bowel which is stapled at both ends and has a diameter of 2 cm. One end is previously disrupted. Also, in the same container is a separate portion of stapled mucosa with an attached stitch designated per the requisition as proximal stapler. The mucosa measures 4.0 x 1.5 x 1.2 cm and is stapled closed. There is a moderate amount of surrounding adipose tissue. The main specimen has an abundant amount of pericolonic fat. The serosa is smooth with an area previously inked black. No masses are palpable within the specimen. The specimen is opened to reveal a 1.0 x 0.8 x 0.5 cm polypoid mass at the area where the serosa is previously inked black. The mass is 10.5 cm from the nearest resection margin. The mass is pedunculated and does not invade through the serosa. The serosa underlying the mass is inked blue. The remaining mucosa is howell-brown and well-folded. No other masses or lesions are grossly identified. Within the separate piece of mucosa designated proximal stapler, there is a 2.6 x 2.2 x 1.6 cm polyp. The serosa underlying the polyp is stapled. The polyp is sessile and on sectioning does not appear to extend through the serosa. No lymph nodes are identified within the pericolonic fat surrounding the proximal stapler. A 2.5 x 1.6 x 0.8 cm firm nodule is present within the pericolonic fat. On sectioning, the nodule has a howell-white centrally necrotic cut surface. Twelve lymph node candidates are identified ranging from 0.2 to 0.5 cm in greatest dimension. Feed Inspection Supervisor sections are submitted as follows: . A1: Resection margin closest to smaller mass. A2: Resection margin from opposite end. A3-A4: Mass from mucosa designated proximal stapler. A5: Polypoid mass within lumen of bowel. A6: Normal appearing mucosa. A7: Nodule within pericolonic fat. A8-A10: Four possible lymph nodes per cassette. A11: Pericolonic fat from proximal stapler. . B. Received in formalin labeled with the patient's name and anastomotic donut are two tubular pieces of howell-brown mucosa. One has a stitch present and measures 2.2 x 1.9 cm with a thickness of 0.6 cm and the other measures 1.8 x 1.5 cm with a thickness of 1.3 cm. No abnormalities are grossly identified. Feed Inspection Supervisor sections are submitted as follows: . B1: Mucosa with suture. B2: Mucosa without suture. (SHARON:[id number]) /[facility] 08/01/2021 1323 Local . 02 Pathologist provided ICD-10: C18.9 . 02 CPT . 785203, [id number] Performed at: 01 [facility] [address] [address], [place], [place] [id number] MD Greg Gilbert MD Phone: [phone] Performed at: [facility] [address] [place], [place] [id number] MD Prema Rinaldi MD Phone: [phone]
--- NOTE | 2021-07-26 07:33 | PM.PREOP ---
Pre-operative Note Interval Note History & Physical reviewed/Exam performed by Physician: Yes Changes to H&P: No
[2021-07-26] MEDS: LACTATED RINGERS 1,000 ML 100 ML IV ×2 (07:40→10:41)
[2021-07-26 08:01] LABS: COVID19 -Nasal RAPID Negative (Negative)
[2021-07-26] MEDS: PIPERACILLIN/TAZO 4.5 GM in SODIUM CHLORIDE 0.9% 100 ML 200 ML IV (08:30)
[2021-07-26] MEDS: BUPIVACAINE 0.25% (PF) VIAL 30 ML INJ (08:40)
--- NOTE | 2021-07-26 08:45 | SUR.OPER ---
Lithotomy on padded OR bed. Kenvir Pad Positioner under torso. Head on pillow. Right arm padded and tucked at side/Left arm positioned on padded armboard. Legs secured in padded yellow fins stirrups.
[2021-07-26] MEDS: ACETAMINOPHEN IV 1,000 MG/100 ML VIAL 400 MG IV (09:00)
--- NOTE | 2021-07-26 14:01 | PM.OP.1 ---
Operative Date/Time/Diagnoses Date of procedure: 07/26/21 Time of procedure: 14:01 Pre-op diagnosis: colon cancer Post-op diagnosis: same Procedure & Clinicians Procedure: laparoscopic assisted sigmoid colectomy and low anterior resection Same procedure as scheduled: Yes Indications: 50 M found to have colon cancer within the sigmoid colon and a polyp in the proximal rectum with high grade dysplasia, no evidence of metastatic disease on staging workup. Surgeon: Harjinder Hannah Aircraft Power Plant Assembler: Abraham Titus Click Yes if Unassisted: Yes Anesthesia Type: General Operative Notes Findings: No evidence of metastatic disease. Firm lymph node within the sigmoid colon mesentery. Closure Type: primary Specimen(s): other (sigmoid and rectum. Stitch is within the proximal staple line of the rectum) Estimated Blood Loss (mL): 50 Procedure in detail: Patient was brought to the operating room. A epidural catheter was placed by Anesthesia. He was then placed supine on table bilateral lower extremity compression devices were applied. General anesthesia was induced she was intubated with an endotracheal tube. He received Zosyn prior to skin incision. He was prepped and draped sterile fashion. Time-out performed. Infraumbilical incision made the umbilical stalk was grasped elevated fascia sharply incised abdomen entered atraumatically. 12 mm balloon trocar was then placed into the abdomen the abdomen was insufflated. Inspection of the abdomen demonstrated no evidence of metastatic disease there was obvious tattoo denoting the sigmoid lesion. Additional working ports were placed 5 mm each in the right lower quadrant and the right upper quadrant. We began by mobilizing the sigmoid colon off its lateral attachments. The dissection was carried up to the splenic flexure following the white line of Toldt. The gastrocolic ligament was incised opening the lesser sac and this was carried all the way to the spleen. Next turned attention was turned to the pelvis. There was a hint of tattoo in the mid rectum but it was quite difficult to confirm the exact location of the lesion. A lower midline incision was made the abdomen was opened. An on table colonoscopy was performed which demonstrated the rectal polyp to be in mid rectum. The left and right ureters were identified by their vermiculation and kept posterior out of harms way. The TOMAS pedicle was identified and there was a firm lymph node associated with the pedicle. The pedicle was dissected out and then a high ligation of the TOMAS was performed with a vascular staple load. Next the proximal colon was divided using the SANFORD stapler proximal to the tattooed sigmoid cancer. The rectum was then mobilized out of the pelvis and the rectal stalks were divided with the ligauture. The rectum was then carefully dissected off the pre sacral fascia and anteriorly Denovnvillier's fascia was divided. The rectum was then transected with the TA stapler and I inspected the specimen. I did not observe the polyp within the specimen we needed to to divide the rectum slightly more distal. A second firing of the the TA stapler produced a specimen labeled rectum and this contained the polyp and the proximal staple line was marked with a silk suture. There was approximately 2 cm of length distal to the polyp. The proximal colon staple line was excisied and it comfortably accommodated a 29 EEA sizer. A pursting was formed with 2 Prolene. The stapler was inserted into the rectum and the point deployed through the anterior rectal wall. The anvil and stapler were mated ensuring that there was no kink the ureters were kept posterior out of harms way. The ananstosis demonstrated two intact anastamotic donuts. A leak test was performed there was no leak. The abdomen was copiously irrigated and hemostatsis was checked. The anastamosis was well perfused and without tension. A 19 F drain was placed deep into the pelvis. The midline fascia was closed with running 1 PDS the subcutaneous tissue with Vircyl followed by Monocryl the skin sealed with dermabond. The laparoscopic port sites were closed with Monocryl and dermabond. Patient tolerated the procedure well was extubated and transferred to recovery in stable condition. Complications: none Post-operative Condition: stable Disposition: Acute Care
--- NOTE | 2021-07-26 14:18 | SUR.PHASEI ---
Stable pacu stay, epidural controlling pain, pt rates 2/10 and states that he is comfortable, dressings remained c/d/i with jackie drain that is compressed. abdominal binder in place. Jeffrey Hannah and Mg spoke to pt once awake, report called to Walt and pt transported up on room air. Pt left with RN in stable condition.
[2021-07-26] MEDS: SODIUM CHLORIDE 0.9% 1,000 ML 100 ML IV (14:47)
[2021-07-26] MEDS: levETIRAcetam 1,000 MG in SODIUM CHLORIDE 0.9% 100 ML 440 ML IV ×2 (14:47→22:39)
[2021-07-26] MEDS: FENT 2MCG/ML BUPIV 0.125% EPI 200 MCG/100 ML PLAST..BAG 10 MCG EPIDURAL (14:53)
[2021-07-26] MEDS: PIPERACILLIN/TAZO 3.375 GM in SODIUM CHLORIDE 0.9% 100 ML 25 ML IV ×2 (14:53→22:26)
--- NOTE | 2021-07-26 15:44 | PC.NURSE ---
Admit Note Pt arrived to room 227 from PACU at 1405. Report received from Daxa KATZ. Pt alert and oriented x3. Reports pain 3/10 to abdomen, epidural infusing at 10 ml/hr. Instructed pt on use of bolus dosing as needed on epidural, using intermittently. Decreased sensation from about T6 to L3 (mid-thigh). SpO2 upper 90s on RA. VSS. Lap sites x2 to upper abdomen, C/D/I with skin glue in place. Midline abdominal dressing (Aquacel) C/D/I. Dc drain to RLQ, serosanguinous drainage noted. Pulliam in place and draining clear yellow urine. Pt taking in sips of water without issue. Ruma (mother) at bedside. Oriented pt to room and to call light, bed, TV controls. Belongings in room including clothing, declines to lock up any valuables. Call light within reach, using appropriately to make needs known.
--- NOTE | 2021-07-26 15:55 | OT.IPNOTE ---
Checked with nursing for OT eval. Per nurse pt just came up to the floor and best to wait until tomorrow.
[2021-07-26] MEDS: PRIMIDONE 50 MG TABLET 250 MG PO ×2 (17:32→22:28)
[2021-07-26] MEDS: ZONISAMIDE 100 MG CAPSULE 200 MG PO (22:27)
[2021-07-26] MEDS: FOSPHENYTOIN 100 PE/2 ML VIAL IV (22:28)
[2021-07-27] VITALS (11 sets, daily range): BP systolic 105–134; BP diastolic 60–82; PULSE 84–98; RESP 16–18; TEMP 36.5–37.1; O2SAT 93–97
[2021-07-27] MEDS: SODIUM CHLORIDE 0.9% 1,000 ML 100 ML IV ×3 (01:28→21:52)
--- NOTE | 2021-07-27 02:47 | PC.NURSE ---
SHIFT Report received, care assumed 1929. Pt A&Ox4. Demonstrates developmental delays consistent with baseline. VSS. Reports he can't move his legs. Demonstrates numbness from mid abdomen (T8 or T9) to ankles. Epidural infusing 10ml/hr continuous, 3ml/15 demand, 20 min lockout. Denies pain. Bilateral calf SCD's on. SR to ST max rate 105. VSS, room air. Pt. on bedrest d/t epidural. Has Pulliam cath, hematuria in bag, clear yellow urine in tubing.
[2021-07-27 05:02] LABS: Add Manual Diff / Slide Review NO; Basophils Absolute Auto 0 /uL (0-100); Basophils Percent Auto 0.4 % (0-2); Eosinophils Absolute Auto 0 /uL (0-450); Eosinophils Percent Auto 0.3 % (2-4); Hematocrit 39.7 % (41-53); Hemoglobin 13.5 g/dL (13.5-17.5); Lymphocytes Absolute Auto 2300 /uL (1100-4500); Mean Corpuscular Hemoglobin 32.4 PG (26-34); Mean Corpuscular Volume 95.3 fL (80-100); Monocytes Absolute Auto 1200 /uL (0-900); Monocytes Percent Auto 10.9 % (3-14); Neutrophils Absolute Auto 7700 /uL (1500-7000); Neutrophils Percent Auto 68.4 % (50-75); Platelet Count 239 X10^3/uL (150-400); Red Blood Cell Count 4.17 X10^6/uL (4.5-5.9); White Blood Cell Count 11.3 X10^3/uL (4.5-11.0)
[2021-07-27 05:15] LABS: BUN Creatinine Ratio 9.7 (6-22); Blood Urea Nitrogen 9 mg/dL (9-20); Calcium 7.8 mg/dL (8.4-10.2); Carbon Dioxide 27 mmol/L (22-32); Chloride 105 mmol/L (98-107); Estimated Glomerular Filt Rate > 60.0 mL/min (>60); Glucose 90 mg/dL (70-100); HEMOLYSIS < 15 (0-50); Magnesium 1.7 mg/dL (1.6-2.3); Phosphorous 3.7 mg/dL (2.5-4.5); Potassium 3.9 mmol/L (3.4-5.1); Sodium 138 mmol/L (137-145)
[2021-07-27] MEDS: PIPERACILLIN/TAZO 3.375 GM in SODIUM CHLORIDE 0.9% 100 ML 25 ML IV (05:23)
[2021-07-27] MEDS: FENT 2MCG/ML BUPIV 0.125% EPI 200 MCG/100 ML PLAST..BAG 10 MCG EPIDURAL (07:47)
[2021-07-27] MEDS: levETIRAcetam 1,000 MG in SODIUM CHLORIDE 0.9% 100 ML 440 ML IV (08:45)
[2021-07-27] MEDS: PRIMIDONE 50 MG TABLET 250 MG PO ×3 (08:46→21:11)
[2021-07-27] MEDS: ZONISAMIDE 100 MG CAPSULE 200 MG PO ×2 (08:47→17:34)
[2021-07-27] MEDS: ENOXAPARIN 40 MG/0.4 ML SYRINGE SUBCUT (08:48)
[2021-07-27] MEDS: FOSPHENYTOIN 100 PE/2 ML VIAL 200 PE IV (09:12)
--- NOTE | 2021-07-27 11:10 | PT.IPTN ---
Current Diagnoses Malignant neoplasm of colon, unspecified (07/26/21) Surgery Performed Operation Date: 07/26/21 07:45 Actual Procedures p Laparoscopically Assisted Colectomy(Not Applicable) - Harjinder Hannah MD Physical Therapy Treatment Note M3 PT-IP Subjective Start: 07/27/21 12:31 Freq: NEEDED Status: Active Protocol: Document 07/27/21 11:10 AB (Rec: 07/27/21 12:35 AB [id number]) Subjective Physical Therapy Visit Type Type Administrative Note Notes Checked with nurse and pt on hold for PT at this time. Stated that pt's epidural dosage is high and is not ready to do PT. Pt stated that he cannot feel BLE at this time. PLOF and home set up obtained. Will check later in the afternoon.
--- NOTE | 2021-07-27 11:45 | OT.IPNOTE ---
Per nursing pt not ready to be seen yet for OT eval. TO check on pt later or tomorrow as appropriate.
[2021-07-27] MEDS: ZONISAMIDE 100 MG CAPSULE PO (12:10)
--- NOTE | 2021-07-27 13:19 | PT-IP ANOTE ---
checked with nurse and pt again this afternoon. pt continues to not be able move BLE and still has numbness on BLE. nurse stated that epidural dosage has been reduced 1030 am this morning. will f/u on pt tomorrow.
--- NOTE | 2021-07-27 13:28 | OT.IPNOTE ---
Per nursing, pt not ready to be seen yet, to try gain tomorrow for OT eval.
--- NOTE | 2021-07-27 14:36 | PC.NURSE ---
Addendum entered by Evita Fernandez R.N. 07/27/21 18:17: Sensation has returned to BLEs, able to move BLEs in bed. Unable to lift legs against resistance. Attempted to dangle on side of bed but pt reported increase in pain and requested additional pain medication before proceeding. Reviewed pain med options and pt requested Tylenol which was given. Rolled self back and forth in bed with assist while bed linens changed (incontinent BM). Original Note: Day Shift Note Pt's BLEs numb and pt unable to move either extremity. Unable to work with PT/OR at this time. Epidural site intact. Dr. Nicole called at 1130 and order received to decrease epidural rate to 5 ml/hr which was done at that time. Pt reports slight decrease in numbness at this time but still no movement. Denies pain to abdomen. Dressings are D/I, small amount old drainage to aquacel dressing. SpO2 upper 90s on RA. Tolerating clear without issue, denies nausea. Reports passing small amount of flatus this AM. Pulliam in place and draining clear yellow urine. Dc drain compressed and draining serosanguinous fluid. Call light within reach, using appropriately to make needs known.
--- NOTE | 2021-07-27 15:09 | CM.DANOTE ---
DCP Assessment: Patient is a 50 yr old male with Developmental delay who was admitted for Colon Resection preformed by Dr. harris. Patient was alert and oriented x3 at time of CM visit patient mother was present during Cm visit as well. Cm explained role and patient stated understanding. Patient currently lives with his parents in a two story home in [place]. Patient stated he is independent with ADLS but does not drive. Patients mother drives patient where he needs to go. PT and OT are pending patients ROM return after epidural. Patient plan is to DC home with family and doesn't have any DC planning needs at this time. I: Medicare and medicaid Plan: DC home with family when medically stable. no Identified DC planning needs noted at this time.. CM department will follow to help assist with any DC planning needs as they arise. Florinda Joy RNpermanent mold supervisor Discharge Planning/Care Management CM Discharge Assessment Start: 07/27/21 14:49 Freq: Status: Active Protocol: Document 07/27/21 14:49 HS (Rec: 07/27/21 15:09 HS [id number]) Discharge Planning Assessment Assigned Race Steward Florinda Joy RNpermanent mold supervisor DPOA/Assigned Designee Name Ruma Jha (mom) Contact Information [phone] Advance Directives? No History Provided By Patient,Family Member,Medical Record Prior Living Arrangements House Household Members family Type of transporation used prior to Relies on Others admit Comment mother and father do all the driving Independent with ADL's Yes Is patient alert and oriented? Yes: Does have some Developmental delay Caregiver for Another No Barriers to Discharge No Discharge Plan Home Referrals Initiated None needed Whiteboard Updated in Patient Room with Yes name and ext. # of Race Steward Review Status In Process Next Review Type Continued Stay Review Pre-Anesthesia Assessment Start: 07/20/21 12:48 Freq: Status: Active Protocol: Document 07/20/21 12:48 CAB (Rec: 07/20/21 13:29 CAB [id number]) Pre-Anesthesia Assessment Preferred Name Vinayak Patient Information Reviewed Via Phone Assessment Assessment Completed With Other Comment PAC completed with Priya Zapatayl with pt's verbal permission Comment COVID-Rapid on Admit Primary Care Provider Jyotsna Sky Seen Specialist in Last 12 Months Yes Specialist Seen General surgeon,Other Comment Neurology-Dr. Shelli Marrero - last visit 05/05/21 scanned to record Primary Language [place] Medical Laboratory Manager Required No Height 177.8 cm Weight 106.594 kg Body Mass Index (BMI) 33.7 Hearing Ability Normal Visual Assist Glasses Dentition Type Teeth, Natural Present Barriers to Learning Cognitive impairment, Developmental delay Hx Anesthesia Reactions No: Procedural sedation only Additional comment I have no warning of grand mal seizures Hx Family Anesthesia Reaction Yes: Mom-I just couldn't come out of it Hx Malignant Hyperthermia No Hx Blood Transfusions No Hx Blood Transfusion Reaction No Anesthesia Review Requested No alcohol intake never Smoking Status Never smoker Substance Use Type does not use Pain Present Denied Pain Comment Mom denies any current pain. Pt has a high pain tolerance History of Falling (Recent or History of No ) Patient is completely paralyzed or No completely immobile Mental Status Oriented to own ability Is patient on oxygen? No Does patient have CHAVEZ/SOB No Hx Sleep Apnea No CPAP/BIPAP use not prescribed Currently Taking a Beta Elsy No Hx Chest Pain No Hx SOB No Hx Syncope or Dizziness No Anti-Coagulant Therapy No Has a Cardiovascular Surgeon No Cardiac Testing No Hx Pacemaker/ICD No Pacemaker Rep Required? No Cardiac Clearance Received Not Applicable Diet Type At Home Regular dysphagia No Urinary Catheter Present No Hx Urinary Self Catheterization No Diabetes No Hx Drug Resistant Organism No Presence of External or Internal Medical No Devices Have you had any close contact with No someone diagnosed with COVID-19? Received a COVID vaccine? Yes Received all doses? Yes Marital Status Single Lives With family Support System Parent(s) Does the Patient Have Assistance After Yes Surgery Patient Discharge Plan Description Return Home Comment Pt advised 3-5 day length of stay per surgeon Feels Safe in Current Environment Yes Been Physically Hurt or Threatened By a No Person in Current Environment Do you have thoughts of harming yourself None or others? Are you currently considering suicide? No Do you have a plan to hurt yourself or No Plan others? Do You Have Any Spiritual Beliefs That No May Affect Your HC Choices? Do You Have Any Cultural Practices That No May Affect Your HC Choices? Comment Katy Who Can We Speak to About Patient's Care Family, friends Identifying Code for Release of Patient Declines to issue Information Health Care Proxy/Next of Kin Ruma BurrellMom) Selvin (Dad) Health Care Proxy Phone Number Ruma: [phone] Iver: [phone] Emergency Contact Name Ruma (Benny) Kristianprince (Dad) Emergency Contact Phone Number Ruma: [phone] Iver: [phone] Advance Directives? No Power of Manager Personal No PAC Instructions Medications to take/avoid, Nasal antibiotic,No ETOH/ petroleum product on skin DOS, NPO,Sturdy shoes/comfortable clothes,Do not bring valuables and remove jewelry
[2021-07-27] MEDS: levETIRAcetam 250 MG TABLET 1000 MG PO ×2 (15:26→17:33)
[2021-07-27] MEDS: PHENYTOIN ER 100 MG CAPSULE PO (17:33)
[2021-07-27] MEDS: ACETAMINOPHEN 325 MG TABLET 650 MG PO (17:53)
--- NOTE | 2021-07-27 18:03 | PM.PNPO.1 ---
Subjective Subjective Date Patient Seen: 07/27/21 Time Patient Seen: 15:45 Interval history: No events overnight. epidural is too dense for mobilization today. Exam Vital Signs (past 8 hours): - 07/27/21 11:37 07/27/21 15:00 Temperature 97.7 F 98.8 F Pulse Rate 88 89 Respiratory Rate 16 16 Blood Pressure 108/60 120/82 Pulse Oximetry 95 97 Oxygen Delivery Method Room Air Oxygen Flow Rate 0 Narrative Exam Narrative: Abdomen soft, dressings dry. drain sero sang. No nausea. Objective Labs Result Diagrams: 07/27/21 04:41 07/27/21 04:41 Labs: Laboratory Results - last 24 hr 07/27/21 07/27/21 04:41 04:41 WBC 11.3 H RBC 4.17 L Hgb 13.5 Hct 39.7 L MCV 95.3 MCH 32.4 MCHC 34.0 RDW 13.0 Plt Count 239 Neut % (Auto) 68.4 Lymph % (Auto) 20.0 L Garvin % (Auto) 10.9 Eos % (Auto) 0.3 L Baso % (Auto) 0.4 Neut # (Auto) 7700 H Lymph # (Auto) 2300 Garvin # (Auto) 1200 H Eos # (Auto) 0 Baso # (Auto) 0 Sodium 138 Potassium 3.9 Chloride 105 Carbon Dioxide 27 BUN 9 Creatinine 0.93 Estimated GFR > 60.0 BUN/Creatinine Ratio 9.7 Glucose 90 Calcium 7.8 L Phosphorus 3.7 Magnesium 1.7 PFSH Medical History (Updated 07/20/21 @ 12:53 by Taniya Pineda RN) Hemorrhoid (~02/15/14) Seizure Static encephalopathy Surgical History (Updated 07/20/21 @ 13:08 by Taniya Pineda RN) Hx of colonoscopy Hx of oral surgery Family History Father CAD (coronary artery disease) Hypertension Diabetes mellitus Cancer Mother CAD (coronary artery disease) Hypertension Stroke Social History marital status: household members: family Smoking Status: Never smoker alcohol intake: never substance use type: does not use Assessment & Plan Post-op Postoperative Procedures: Procedures Operation Date: 07/26/21 07:45 Actual Procedure Side Surgeon p Laparoscopically Assisted Colectomy Not Applicable Harjinder Hannah MD Postoperative day: 1 Postoperative status: doing well Postoperative status narrative: No complications Postoperative plan: routine post-op care and ambulate (when control of legs return with decreasing epidural) Time Spent With Patient Time with patient: less than 15 minutes Quality VTE Deep Vein Thrombosis/Pulmonary Embolism Present on Admission: No
[2021-07-27] MEDS: FENT 2MCG/ML BUPIV 0.125% EPI 200 MCG/100 ML PLAST..BAG 5 MCG EPIDURAL (22:24)
[2021-07-28] VITALS (35 sets, daily range): BP systolic 128–156; BP diastolic 82–95; PULSE 84–97; RESP 16–20; TEMP 36.5–37.4; O2SAT 89–99
[2021-07-28] MEDS: ACETAMINOPHEN 325 MG TABLET 650 MG PO (04:28)
[2021-07-28 04:43] LABS: Add Manual Diff / Slide Review NO; Basophils Absolute Auto 0 /uL (0-100); Basophils Percent Auto 0.4 % (0-2); Eosinophils Absolute Auto 100 /uL (0-450); Eosinophils Percent Auto 1.3 % (2-4); Hematocrit 38.7 % (41-53); Hemoglobin 13.3 g/dL (13.5-17.5); Lymphocytes Absolute Auto 2000 /uL (1100-4500); Lymphocytes Percent Auto 18.2 % (25-40); Mean Corpuscular HGB Conc 34.3 % (30-36); Mean Corpuscular Hemoglobin 32.4 PG (26-34); Mean Corpuscular Volume 94.4 fL (80-100); Monocytes Absolute Auto 1000 /uL (0-900); Monocytes Percent Auto 9.1 % (3-14); Neutrophils Absolute Auto 8000 /uL (1500-7000); Platelet Count 226 X10^3/uL (150-400); Red Cell Distribution Width 12.5 % (11.6-14.8); White Blood Cell Count 11.2 X10^3/uL (4.5-11.0)
[2021-07-28 04:50] LABS: BUN Creatinine Ratio 6.5 (6-22); Blood Urea Nitrogen 4 mg/dL (9-20); Calcium 7.9 mg/dL (8.4-10.2); Carbon Dioxide 29 mmol/L (22-32); Chloride 105 mmol/L (98-107); Estimated Glomerular Filt Rate > 60.0 mL/min (>60); Glucose 123 mg/dL (70-100); HEMOLYSIS < 15 (0-50); Magnesium 1.6 mg/dL (1.6-2.3); Phosphorous 2.9 mg/dL (2.5-4.5); Potassium 3.2 mmol/L (3.4-5.1); Sodium 136 mmol/L (137-145)
[2021-07-28] MEDS: SODIUM CHLORIDE 0.9% 1,000 ML 100 ML IV ×2 (07:42→17:46)
[2021-07-28] MEDS: PHENYTOIN ER 100 MG CAPSULE 200 MG PO (08:36)
[2021-07-28] MEDS: ENOXAPARIN 40 MG/0.4 ML SYRINGE SUBCUT (08:37)
[2021-07-28] MEDS: levETIRAcetam 250 MG TABLET 1000 MG PO ×3 (08:37→17:46)
[2021-07-28] MEDS: ZONISAMIDE 100 MG CAPSULE 200 MG PO ×2 (08:39→17:59)
[2021-07-28] MEDS: ONDANSETRON 4 MG/2 ML INJ IV ×3 (08:40→20:42)
[2021-07-28] MEDS: PRIMIDONE 50 MG TABLET 250 MG PO ×3 (08:47→20:31)
--- NOTE | 2021-07-28 12:00 | PT.IIE ---
Current Diagnoses Malignant neoplasm of colon, unspecified (07/26/21) Surgery Performed Operation Date: 07/26/21 07:45 Actual Procedures p Laparoscopically Assisted Colectomy(Not Applicable) - Harjinder Hannah MD Medical History (Last Updated 07/20/21 @ 12:53 by Taniya Pineda RN) Hemorrhoid (~02/15/14) Seizure Static encephalopathy Physical Therapy Inpatient Evaluation/Re-Eval M1 PT/OT-IP Prior Functional Status Start: 07/27/21 12:31 Freq: NEEDED Status: Active Protocol: Document 07/28/21 12:00 AB (Rec: 07/28/21 14:14 AB [id number]) Medical Review Prior Functional Status Medical History Reviewed Yes Communication able to make needs known but with some word finding difficulty Mobility and Gait pt stated that he is indpenednet with all mobilities and ambulation without AD Social History Household Members family Living Arrangements House Number of Stairs To Enter/Railing? pt stays on main level of the house has 3 steps with R rail ascending from the front of the house 4 steps with R rail ascending from the garage Home Environment Standard Height Toilet,Walk in Shower Home Equipment Front Wheel Walker,Four Wheel Walker,Straight Cane Additional Social History Comment pt stated that his parents will be able to assist him M2 PT-IP Current Condition Start: 07/27/21 12:31 Freq: NEEDED Status: Active Protocol: Document 07/28/21 12:00 AB (Rec: 07/28/21 14:14 AB [email or web address]) Physical Therapy Current Condition Current Condition Evaluation Date 07/28/21 Treatment Diagnosis colon CA s/p colectomy; difficulty in walking Onset Date 07/26/21 M3 PT-IP Subjective Start: 07/27/21 12:31 Freq: NEEDED Status: Active Protocol: Document 07/28/21 12:00 AB (Rec: 07/28/21 14:14 AB [email or web address]) Subjective Physical Therapy Visit Type Type Initial Evaluation Visit Start Time 12:00 Visit Stop Time 12:35 Total Visit Minutes 35 Number of SENIOR APPLICATIONS DEVELOPER Visits 0 Physical Therapy Visit Comments Patient Comments agreeable to do PT Therapy Pain Assessment Pain When Pain Assessed At Rest Pain Present Pain Present Pain Reported Location Anterior Abdomen Intensity 2 Scale Used Numeric (0 - 10) Pain Management Techniques Distraction,Modification of Treatment,Re-positioning, Timing of Activity with Medications M4 PT-IP Mobility and Gait Start: 07/27/21 12:31 Freq: NEEDED Status: Active Protocol: Document 07/28/21 12:00 AB (Rec: 07/28/21 14:14 AB [email or web address]) PT-Bed Mobility Assessment Rolling Level of Assist Maximal Assistance,2 Person Assistance Supine to Sit Supine to Sit Maximum Assistance,2 Person Assistance,Head of Bed Elevated Sit to Supine Sit to Supine Maximum Assistance,2 Person Assistance,Head of Bed Elevated Scooting Scooting to Edge of Bed Dependent PT-Transfer Assessment Sit to and From Stand Sit to and from Stand Maximum Assistance,2 Person Assistance,Use of Upper Extremities Comments Mobility Comments pt educated on abdominal precautions. pt presents with decrease motor control on LLE but able to move LE. completed supine to sit with HOB slightly elevated max A x 2 and max cues. mod to max A for sitting balance on EOB. total A for scooting to EOB. attempted sit to stand max A x 2 but unable to complete and pt unable to activate B quads to stand. scooted pt towards HOB total A. sit to supine max A x 2 and max cues. positioned pt in bed. call light and table placed within reach. PT-Balance Assessment Sitting Balance and Reactions Static Sitting Balance Ability Poor Dynamic Sitting Balance Ability Poor Standing Balance and Reactions Static Standing Balance Ability Poor Dynamic Standing Balance Ability Poor M5 PT-IP Objective Assessments Start: 07/27/21 12:31 Freq: NEEDED Status: Active Protocol: Document 07/28/21 12:00 AB (Rec: 07/28/21 14:14 [email or web address]) Orientation Orientation/Cognition Level of Alertness Alert Orientation Name,Place,Situation Language Function Ability Word Finding Difficulties Safety Awareness Decreased Safety Awareness Gross Range of Motion Lower Extremity ROM Assessment Within Functional Limits Strength Lower Extremity Strength Assessment Bilaterally Impaired Comments Strength Comments RLE: 4-/5 LLE: 3-/5 Muscle Tone Muscle Tone WNL No Other Assessments Other Other Assessments decrease motor control on LLE M6 PT-IP Treatment Start: 07/27/21 12:31 Freq: NEEDED Status: Active Protocol: Document 07/28/21 12:00 AB (Rec: 07/28/21 14:14 AB [email or web address]) Physical Therapy Treatment Education Education Provided Precautions,Safety M7 PT-IP Assessment and Plan Start: 07/27/21 12:31 Freq: NEEDED Status: Active Protocol: Document 07/28/21 12:00 AB (Rec: 07/28/21 14:14 AB [email or web address]) PT Summary Assessment and Plan Potential Rehabilitation Potential Fair Status of Condition at Evaluation Evolving Summary Impairments Pain,ROM,Strength,Balance, Coordination,Sensation,Tone, Cognition,Bed Mobility, Transfers,Gait,Activity Tolerance Assessment Summary pt requiring max Ax2 to total A x 2 with all mobilities and unable to fully stand at this time. will continue to assess progress. pt may require SNF rehab. pt still on epidural IV and is a factor factor for decrease LE strength and motor control. Goals Bed Mobility Goal Moderate Assistance Transfer Goal Moderate Assistance,Front Wheeled Walker Gait Goal Moderate Assistance,Front Wheel Walker Gait Distance 25 Other Goals improve bed mobility, transfers SBA using fWW, ambulation using FWW SBA 150 ft 3 steps R rail ascending CGA Days to Meet Goals 10 Frequency of Treatment Frequency Of Treatment Once a Day Treatment Plan Physical Therapy Treatment Plan Bed Mobility Training,Transfer Training,Gait Training, Therapeutic Exercise,Balance Retraining,Post Op Education, Discharge Planning,Hot or Cold Pack,Neuromuscular Re-ed, Coordination Retraining,Manual Therapy Precautions Abdominal Surgery Precautions Log Roll,Lifting Restrictions, Gait Belt above Incisional Area Recommendations To Nursing Amount of Assist Needed Mechanical Lift Discharge Recommendations PT Discharge Recommendations SNF Rehab Transportation Needs at Discharge Wheelchair/Cabulance
[2021-07-28] MEDS: HYDROMORPHONE 0.5 MG INJ IV (12:09)
[2021-07-28] MEDS: ZONISAMIDE 100 MG CAPSULE PO (12:11)
[2021-07-28] MEDS: MAGNESIUM SULFATE 2 GM/50 ML PIGGYBACK IV (14:22)
--- NOTE | 2021-07-28 14:53 | DIET.PN1 ---
Dietary Progress Note Assessment: 50y M c DD s/p d2 for colon resection secondary to colon cancer. This RD saw pt and parents presurgery for nutrition optimization. Pt tolerating clear liquid diet, some nausea today. Dropped off discharge diet instructions including packet Low Fiber Diet and packet Gradually Increasing Fiber Intake. Pts mom not in room with RD visited, RD to return to answer questions pt and parents may have regarding packet. Ht: 177.8 cm Wt: 106.594 kg BMI: 33.7 UBW: Last BM: 07/27/21 (07/27/21 17:53) MNA: 14 Gasper Score: 20 Diet: 07/26/21 Dinner Clear Liquid Diet Diet Modifications: Nutrition Percent Meal Consumed 50% 07/28/21 13:20 Percent Meal Consumed 25% 07/28/21 09:19 Percent Meal Consumed 75% 07/27/21 17:53 Percent Meal Consumed 100% 07/27/21 12:40 Percent Meal Consumed 100% 07/26/21 18:31 Labs: RBC 4.10 X10^6/uL (4.5-5.9) L 07/28/21 04:23 Hgb 13.3 g/dL (13.5-17.5) L 07/28/21 04:23 Hct 38.7 % (41-53) L 07/28/21 04:23 Creatinine 0.62 mg/dL (0.66-1.25) L 07/28/21 04:23 Electronically Signed by: Ritu Owens 07/28/21 14:53 Clinical Dietitian [address] [id number]
--- NOTE | 2021-07-28 16:09 | OT.IPNOTE ---
Per pt not able to fully use his legs yet and able to talk to the pt and his mother regarding OT needs. Pt's mom states able to assist pt with needs but unable to do any lifting if needed. To check on pt again tomorrow for OT eval.
--- NOTE | 2021-07-28 16:15 | P.PN_ITS ---
Subjective Subjective Date Patient Seen: 07/28/21 Time Patient Seen: 16:15 Interval history: feels nauseated. Minimal emesis. Legs still not functional enough for walk. Exam Vital Signs (past 8 hours): - 07/28/21 11:00 07/28/21 12:23 07/28/21 15:00 Temperature 98.9 F Pulse Rate 96 H Respiratory Rate 16 Blood Pressure 149/88 H Pulse Oximetry 94 92 94 Oxygen Delivery Method Room Air Oxygen Flow Rate 0 Narrative Exam Narrative: Abdomen is distended but soft, dressings are dry. Pulliam in place. Objective Labs Result Diagrams: 07/28/21 04:23 07/28/21 04:23 Labs: Laboratory Results - last 24 hr 07/28/21 07/28/21 04:23 04:23 WBC 11.2 H RBC 4.10 L Hgb 13.3 L Hct 38.7 L MCV 94.4 MCH 32.4 MCHC 34.3 RDW 12.5 Plt Count 226 Neut % (Auto) 71.0 Lymph % (Auto) 18.2 L [place] % (Auto) 9.1 Eos % (Auto) 1.3 L Baso % (Auto) 0.4 Neut # (Auto) 8000 H Lymph # (Auto) 2000 [place] # (Auto) 1000 H Eos # (Auto) 100 Baso # (Auto) 0 Sodium 136 L Potassium 3.2 L Chloride 105 Carbon Dioxide 29 BUN 4 L Creatinine 0.62 L Estimated GFR > 60.0 BUN/Creatinine Ratio 6.5 Glucose 123 H Calcium 7.9 L Phosphorus 2.9 Magnesium 1.6 PFSH Medical History (Updated 07/20/21 @ 12:53 by Taniya Pineda RN) Hemorrhoid (~02/15/14) Seizure Static encephalopathy Surgical History (Updated 07/20/21 @ 13:08 by Taniya Pineda RN) Hx of colonoscopy Hx of oral surgery Family History Father CAD (coronary artery disease) Hypertension Diabetes mellitus Cancer Mother CAD (coronary artery disease) Hypertension Stroke Social History marital status: household members: family Smoking Status: Never smoker alcohol intake: never substance use type: does not use Assessment & Plan Post-op Postoperative Procedures: Procedures Operation Date: 07/26/21 07:45 Actual Procedure Side Surgeon p Laparoscopically Assisted Colectomy Not Applicable Harjinder Hannah MD Postoperative day: 2 Postoperative status: post-op ileus Postoperative status narrative: ileus with nausea, epidural works but may be hindering walking. Postoperative plan narrative: Scop patch for nausea. Staying with sips of clears. Watch potassium another day. Quality VTE Deep Vein Thrombosis/Pulmonary Embolism Present on Admission: No
[2021-07-28] MEDS: SCOPOLAMINE 1 PATCH TOP (16:37)
[2021-07-28] MEDS: POTASSIUM CHLORIDE IN WATER 10 MEQ/100 ML PIGGYBACK 100 MEQ IV ×4 (16:38→20:31)
[2021-07-28] MEDS: FENT 2MCG/ML BUPIV 0.125% EPI 200 MCG/100 ML PLAST..BAG 5 MCG EPIDURAL (16:45)
[2021-07-28] MEDS: PHENYTOIN ER 100 MG CAPSULE PO (17:02)
--- NOTE | 2021-07-28 20:19 | PC.NURSE ---
Addendum entered by Karie Infante R.N. 07/29/21 06:51: 0650- Ruma Jha (mother) updated on patient condition. She will be in this am and is willing to assist with getting the NGT if the surgeons feel it is needed. No further vomiting this am. Patient is sleeping presently. Will monitor. Addendum entered by Karie Infante R.N. 07/29/21 06:28: 0600- Dr. Deal notified of patient Nausea and Vomiting. Emesis total 1500cc for the night. Patient is not cooperative with placing an NGT at this time. Perhaps when his mother comes in she can assist with explaining the need for a NGT. Dr. Deal is aware that the patient is refusing at this time. Orders to make patient NPO and IV seizure medications restarted. Will monitor closely. Original Note: 1999- Patient appears uncomfortable but denies pain. Patient has intermitted hiccups, Nausea with vomiting. Patient states he has been feeling this way since physical therapy today. Patient informed about NG tube but does not seem to fully understand. Will monitor closely for NV and possible need for NGT.
[2021-07-29] VITALS (24 sets, daily range): BP systolic 130–163; BP diastolic 75–97; PULSE 83–127; RESP 14–22; TEMP 36.5–37.3; O2SAT 92–98
[2021-07-29] MEDS: SODIUM CHLORIDE 0.9% 1,000 ML 100 ML IV ×3 (03:39→23:50)
[2021-07-29 04:39] LABS: Add Manual Diff / Slide Review NO; Basophils Absolute Auto 100 /uL (0-100); Basophils Percent Auto 0.4 % (0-2); Eosinophils Absolute Auto 0 /uL (0-450); Eosinophils Percent Auto 0.2 % (2-4); Lymphocytes Absolute Auto 1500 /uL (1100-4500); Lymphocytes Percent Auto 10.2 % (25-40); Mean Corpuscular HGB Conc 34.2 % (30-36); Mean Corpuscular Hemoglobin 32.3 PG (26-34); Mean Corpuscular Volume 94.3 fL (80-100); Monocytes Absolute Auto 1200 /uL (0-900); Monocytes Percent Auto 7.8 % (3-14); Neutrophils Absolute Auto 12300 /uL (1500-7000); Neutrophils Percent Auto 81.4 % (50-75); Platelet Count 265 X10^3/uL (150-400); Red Blood Cell Count 4.35 X10^6/uL (4.5-5.9); Red Cell Distribution Width 12.7 % (11.6-14.8); White Blood Cell Count 15.1 X10^3/uL (4.5-11.0)
[2021-07-29 04:47] LABS: BUN Creatinine Ratio 12.5 (6-22); Blood Urea Nitrogen 7 mg/dL (9-20); Calcium 8.1 mg/dL (8.4-10.2); Carbon Dioxide 27 mmol/L (22-32); Chloride 102 mmol/L (98-107); Estimated Glomerular Filt Rate > 60.0 mL/min (>60); Glucose 131 mg/dL (70-100); HEMOLYSIS < 15 (0-50); Magnesium 1.8 mg/dL (1.6-2.3); Phosphorous 2.8 mg/dL (2.5-4.5); Potassium 3.7 mmol/L (3.4-5.1); Sodium 133 mmol/L (137-145)
[2021-07-29] MEDS: levETIRAcetam 1,000 MG in SODIUM CHLORIDE 0.9% 100 ML 440 ML IV ×3 (07:50→22:23)
--- NOTE | 2021-07-29 09:05 | DI.RAD.S_ITS ---
PROCEDURE: XR CHEST 1V INDICATIONS: confirm NG tube placement TECHNIQUE: One view of the chest was acquired. COMPARISON: None. FINDINGS: Surgical changes and devices: Enteric tube is present with the tip projecting in the stomach however the side-port probably located the GE junction and could be advanced slightly (8-10 cm.) Lungs and pleura: Low lung volumes. Scattered subsegmental atelectasis and/or scarring. No focal consolidation. No pleural effusion or pneumothorax. Mediastinum: Mediastinal contours appear normal. Heart size is normal. Bones and chest wall: No suspicious bony lesions. Overlying soft tissues appear unremarkable. IMPRESSION: Enteric tube with the tip in the stomach however could be advanced slightly as discussed above in detail. Dictated by: Corey Dewitt M.D. on 07/29/2021 at 9:20 Approved by: Corey Dewitt M.D. on 07/29/2021 at 9:25
[2021-07-29] MEDS: FOSPHENYTOIN PE IV ×2 (09:22→20:49)
[2021-07-29] MEDS: SODIUM CHLORIDE IV ×2 (09:22→20:49)
--- NOTE | 2021-07-29 11:45 | PT-IP ANOTE ---
Attempted to see pt at 11:45 AM, per RN hold PT until tomorrow due to NG tube placement and emesis.
--- NOTE | 2021-07-29 11:48 | OT.IPNOTE ---
Per nursing pt not appropriate for OT eval today, to check on pt tomorrow for OT eval.
[2021-07-29] MEDS: FENT 2MCG/ML BUPIV 0.125% EPI 200 MCG/100 ML PLAST..BAG 5 MCG EPIDURAL (11:54)
--- NOTE | 2021-07-29 13:36 | P.PN_ITS ---
Subjective Subjective Date Patient Seen: 07/29/21 Time Patient Seen: 13:36 Interval history: Vinayak had quite a bit of nausea and vomiting overnight. An NG tube was placed with significant return of bilious contents. He is less distended now. He did not receive his Lovenox today. He denies significant abdominal pain. He cannot ambulate concurrently secondary to the epidural catheter. Exam Vital Signs (past 8 hours): - 07/29/21 06:00 07/29/21 06:30 07/29/21 07:00 Temperature Pulse Rate 95 H 86 88 Respiratory Rate Blood Pressure Pulse Oximetry 94 97 98 07/29/21 07:30 07/29/21 08:00 07/29/21 08:13 Temperature 98.3 F Pulse Rate 92 H 92 H 93 H Respiratory Rate 17 Blood Pressure 140/94 H 140/94 H Pulse Oximetry 95 95 95 07/29/21 09:48 07/29/21 11:00 Temperature 98.4 F Pulse Rate 104 H Respiratory Rate 18 Blood Pressure 130/86 Pulse Oximetry 97 94 Oxygen Delivery Method Room Air Oxygen Flow Rate 2 Narrative Exam Narrative: Abdomen is soft without signs of peritonitis. The drain output is serosanguineous. Objective Labs Result Diagrams: 07/29/21 04:01 07/29/21 04:01 Labs: Laboratory Results - last 24 hr 07/29/21 07/29/21 04:01 04:01 WBC 15.1 H RBC 4.35 L Hgb 14.0 Hct 41.0 MCV 94.3 MCH 32.3 MCHC 34.2 RDW 12.7 Plt Count 265 Neut % (Auto) 81.4 H Lymph % (Auto) 10.2 L [place] % (Auto) 7.8 Eos % (Auto) 0.2 L Baso % (Auto) 0.4 Neut # (Auto) 51382 H Lymph # (Auto) 1500 [place] # (Auto) 1200 H Eos # (Auto) 0 Baso # (Auto) 100 Sodium 133 L Potassium 3.7 Chloride 102 Carbon Dioxide 27 BUN 7 L Creatinine 0.56 L Estimated GFR > 60.0 BUN/Creatinine Ratio 12.5 Glucose 131 H Calcium 8.1 L Phosphorus 2.8 Magnesium 1.8 [facility] Medical History (Updated 07/29/21 @ 13:40 by Abraham Titus MD) Hemorrhoid (~05/25/14) Postop check Seizure Static encephalopathy Surgical History (Updated 07/20/21 @ 13:08 by Taniya Pineda RN) Hx of colonoscopy Hx of oral surgery Family History Father CAD (coronary artery disease) Hypertension Diabetes mellitus Cancer Mother CAD (coronary artery disease) Hypertension Stroke Social History marital status: household members: family Smoking Status: Never smoker alcohol intake: never substance use type: does not use Assessment & Plan Assessment and plan (1) Postop check: Status: Acute Plan: Suspect ileus causing nausea vomiting and leukocytosis. He has no peritoneal signs in the drain output is rather clear. Continue NG tube drainage. Will remove epidural catheter today Time Spent With Patient Critical Care time: I spent a total of [] minutes of critical care time on this patient's care today; this time is exclusive of procedural time. Quality VTE Deep Vein Thrombosis/Pulmonary Embolism Present on Admission: No
[2021-07-29] MEDS: HYDROMORPHONE 0.5 MG INJ IV (14:09)
[2021-07-29] MEDS: SODIUM CHLORIDE 0.9% 500 ML 1000 ML IV (21:00)
--- NOTE | 2021-07-29 21:00 | PC.NURSE ---
Dr. Deal called and informed her that pt. had a generalized tonic seizure which lasted for about 1 min. and during that time pt. also end up pulling his NGT out. Pt's HR also is tachycardic in the 130's with a blood pressure of 158/83. Pt. now responsive answers with moans. Fhosphynetoin is hanged. Order received to give Lorazepam 5 mg IV q6h prn seizures and Dr. Deal also will consult with the hospitalist. Pt. currently postictal.
--- NOTE | 2021-07-29 21:18 | PC.NURSE ---
Scopolamine patch taken off per Dr. Novoa.
--- NOTE | 2021-07-29 21:30 | P.CONS_ITS ---
History of Present Illness Consult details Date Patient Seen: 07/29/21 Time Patient Seen: 21:00 Chief complaint: Colon Resection Reason for consult: seizure Requesting provider: Anastasiia Deal Narrative: Mr. Jha is a 50M with H developmental delay, seizure disorder, and recent diagnosis of colon cancer who presented for a colectomy. He was found to have colon cancer within the signoid colon and a polyp in the rectum with high grade dysplasia with no evidence of metastatic disease. He underwent lap sigmoid colectomy on 07/[address] Hannah. Afterwards he was administered an epidural for pain control, which has been discontinued. On 07/28 he developed nausea and emesis consistent with post operative ileus. Scopolamine patch was ordered. His vomiting worsened and he had an NG tube placed with significant bilious output suctioned. Because of this he was made NPO. Of note he has a history of seizure disorder. I did speak with his neurologist, Dr. Marques, at [facility]. He has been maintained on four anti-convulsants keppra, phenytoin, zonisamide, and primidone. Per the patient his last seizure he thinks was a month ago. He says he does not get frequent seizures, though he has PCP notes from previous that note somewhat regular seizure occurrence. He does not recall his other medications. In the setting of being made NPO he had his keppra and phenytoin switched to IV version. His zonisamide and primidone were not administered. Approximately 8:40pm he had an episode of seizure like activity that was witnessed by staff that last approximately one minute where the patient was described as unresponsive with tonic clonic activity that subsided without medication intervention. Because of this Dr. Marques was contacted who was application security consultant for [facility] neurology. She recommended valproate load and if he continued to have seizures to regularly schedule ativan. He was ordered for valproate. When I did see him he was waking up, he did not recall having a seizure, he knew he was in the hospital. He had no complaints at that time. He denies any focal weakness, pain, headache, vision changes, nausea, shortness of breath. Meds Home Medications and Allergies Home Medications Medication Instructions Recorded Confirmed Type levetiracetam 1,000 mg tablet 1,000 mg PO TID #270 tabs 01/23/19 07/26/21 Rx (Keppra) primidone 250 mg tablet 250 mg PO TID #270 tab 01/23/19 07/20/21 Rx phenytoin sodium extended 100 mg See Rx Instructions PO .COMPLEX 03/21/19 07/26/21 Rx capsule (Dilantin Extended) #270 cap zonisamide 100 mg capsule See Rx Instructions PO .COMPLEX 03/21/19 07/20/21 Rx #450 cap cholecalciferol (vitamin D3) 25 25 mcg PO DAILY 05/26/21 07/26/21 History mcg (1,000 unit) capsule multivitamin 1 tab PO DAILY 05/26/21 07/26/21 History bisacodyl 5 mg tablet,delayed 10 mg PO BID #4 tab 07/07/21 07/26/21 Rx release (Dulcolax (bisacodyl)) magnesium citrate 300 ml PO ONCE #296 ml 07/07/21 07/26/21 Rx metronidazole 500 mg tablet 1,000 mg PO TID #6 tab 07/07/21 07/26/21 Rx (Flagyl) neomycin 500 mg tablet 1 g PO TID 0 Days #6 tab 07/07/21 07/26/21 Rx triamcinolone acetonide 0.1 % 1 applictn TOP BID PRN 07/20/21 07/20/21 History topical cream Allergies Allergy/AdvReac Type Severity Reaction Status Date / Time No Known Drug Allergies Allergy Verified 07/26/21 07:25 Review of Systems Review of Systems Narrative: 14 systems reviewed and negative aside from what is noted in HPI Exam Vital Signs (past 8 hours): - 07/29/21 20:00 07/29/21 21:02 07/30/21 00:00 Temperature 99.1 F 100 F H Pulse Rate 114 H 127 H 113 H Respiratory Rate 17 22 17 Blood Pressure 141/75 H 136/80 Pulse Oximetry 93 92 92 Oxygen Delivery Method Nasal Cannula Oxygen Flow Rate 2 Narrative Exam Narrative: GEN: no acute distress HEENT: PERRL, moist mucous membranes NECK: trachea midline, no JVD CV: regular rate and rhythm, with no murmurs PULM: clear bilaterally, no wheezes, rhonchi, rales ABD: soft, nontender, nondistended, no organomegaly, normal bowel sounds EXT: warm and well perfused with no edema NEURO: awake, alert, oriented, no focal deficits SKIN: no rashes noted Objective Labs Result Diagrams: 07/29/21 04:01 07/29/21 04:01 Labs: Laboratory Results - last 24 hr 07/29/21 07/29/21 07/29/21 04:01 04:01 21:26 WBC 15.1 H RBC 4.35 L Hgb 14.0 Hct 41.0 MCV 94.3 MCH 32.3 MCHC 34.2 RDW 12.7 Plt Count 265 Neut % (Auto) 81.4 H Lymph % (Auto) 10.2 L [place] % (Auto) 7.8 Eos % (Auto) 0.2 L Baso % (Auto) 0.4 Neut # (Auto) 26445 H Lymph # (Auto) 1500 [place] # (Auto) 1200 H Eos # (Auto) 0 Baso # (Auto) 100 Sodium 133 L Potassium 3.7 Chloride 102 Carbon Dioxide 27 BUN 7 L Creatinine 0.56 L Estimated GFR > 60.0 BUN/Creatinine Ratio 12.5 Glucose 131 H Calcium 8.1 L Phosphorus 2.8 Magnesium 1.8 Urine Color Yellow Urine Appearance Clear Urine pH 5.0 Ur Specific [place] >=1.030 H Urine Protein 1+ H Urine Glucose (UA) Negative Urine Ketones 1+ H Urine Occult Blood 2+ H Urine Nitrate Negative Urine Bilirubin Negative Urine Urobilinogen 0.2 Ur Leukocyte Esterase Trace H Urine RBC 1-5/hpf Urine WBC 1-5/hpf Urine Bacteria None seen Hyaline Casts 1-5/lpf Ur Culture Indicated? Specimen cultured [facility] Medical History Hemorrhoid (~02/15/14) Postop check Seizure Static encephalopathy Surgical History Hx of colonoscopy Hx of oral surgery Family History Father CAD (coronary artery disease) Hypertension Diabetes mellitus Cancer Mother CAD (coronary artery disease) Hypertension Stroke Social History marital status: household members: family Tobacco & Substance Use Smoking Status: Never smoker alcohol intake: never substance use type: does not use Assessment & Plan Assessment & Plan narrative: Mr. Jha is a 50M with developemental delay, seizure disorder, and colon cancer s/p colectomy who had witnessed seizure like activity. 1. Acute seizure, seizure disorder -patient has difficult to control seizure disorder, that has had breakthrough seizures despite being on four anti-epileptics -has had zonisamide and primidone held due to being NPO -ideally would be back on these medications as soon as can tolerate PO, as there is no IV formulation of zonisamide/primidone -primidone being stopped abruptly can lead to withdrawal, also precipitating seizures -check urinalysis for evidence of infection, check bmp/electrolytes and replete prn -stop scopolamine as has been described as having side effect of seizure -continue IV keppra and IV phenytoin -ordered for IV valproate, received loading dose, then ordered for 375mg q8 -check valproate level 1hr before next valproate dose, with goal trough of 50- 100, per neuro may need to target higher trough (80-100) -second seizure did happen at approximately 1am on 07/30, did receive 2mg IV ativan, but seizure appeared to break before this medication was administered -order for ativan 1mg IV q6 scheduled to lessen primidone withdrawal 2. Colon cancer s/p colectomy with post-operative ileus -patient is NPO for now -NG tube is in place to suction -primary management per surgical team CODE: Full Proxy: Ruma Jha, mother I have utilized all available immediate resources to obtain, update, or review the patient's current medications. Time Spent With Patient Critical Care time: I spent a total of [] minutes of critical care time on this patient's care today; this time is exclusive of procedural time.
[2021-07-29 21:48] LABS: Appearance Urine UA CLEAR; Bilirubin Urine UA NEGATIVE (NEGATIVE); Color Urine UA YELLOW; Glucose Urine UA NEGATIVE (Negative); Ketones Urine UA 1+ (NEGATIVE); Leukocyte Esterase Urine UA TRACE (NEGATIVE); Nitrite Urine UA NEGATIVE (Negative); Occult Blood Urine UA 2+ (Negative); Protein Urine UA 1+ (Negative); Specific Gravity Urine UA >=1.030 (1.000-1.035); Urobilinogen Urine UA 0.2 E.U./dL (0.2)
[2021-07-29 22:00] LABS: Bacteria Urine None Seen; Culture Indicated Urine Specimen Cultured; Hyaline Casts Urine 1-5/LPF; RBC Urine 1-5/HPF (0-5/HPF); WBC Urine 1-5/HPF (0-5/HPF)
[2021-07-29] MEDS: VALPROIC ACID 1,000 MG in DEXTROSE 5 % IN WATER 50 ML 60 ML IV (22:42)
--- NOTE | 2021-07-29 23:07 | PC.NURSE ---
Addendum entered by Phoebe Givens R.N. 07/30/21 05:28: Around 0100 am, pt. had another tonic clonic seizure which lasted less than a minute. Administered Lorazepam 2 mg IV as ordered and also informed Dr. Novoa and he came to bedside. Pt. was sedated and postictal for approximately 4 hrs. Pt. now awake, alert and oriented and had no recollection of the event. Pt. is denying pain, abd. is distended with very few distant BT's, NGT had 550 bilious drainage plus probably another 500 in the wall canister, ABY with 45 ml serous drainage, Pulliam with 850 ml output. Abd. dressing is D&I. Continue to monitor and treat. Original Note: 14F NGT reinserted in the right nare, pt. tolerated the procedure well. NGT back to wall suction producing bilious drainage.
[2021-07-30] VITALS (9 sets, daily range): BP systolic 121–149; BP diastolic 78–89; PULSE 101–115; RESP 14–22; TEMP 37–37.8; O2SAT 90–96
[2021-07-30] MEDS: LORazepam 2 MG/ML INJ IV (01:06)
[2021-07-30 02:07] LABS: Magnesium 1.9 mg/dL (1.6-2.3)
[2021-07-30 05:29] LABS: Add Manual Diff / Slide Review NO; Basophils Absolute Auto 0 /uL (0-100); Basophils Percent Auto 0.3 % (0-2); Eosinophils Absolute Auto 200 /uL (0-450); Eosinophils Percent Auto 1.2 % (2-4); Hematocrit 37.4 % (41-53); Lymphocytes Absolute Auto 1300 /uL (1100-4500); Lymphocytes Percent Auto 10.6 % (25-40); Mean Corpuscular HGB Conc 34.7 % (30-36); Mean Corpuscular Hemoglobin 32.6 PG (26-34); Monocytes Absolute Auto 1200 /uL (0-900); Monocytes Percent Auto 9.3 % (3-14); Neutrophils Absolute Auto 9900 /uL (1500-7000); Neutrophils Percent Auto 78.6 % (50-75); Platelet Count 276 X10^3/uL (150-400); Red Blood Cell Count 3.98 X10^6/uL (4.5-5.9); Red Cell Distribution Width 12.6 % (11.6-14.8); White Blood Cell Count 12.6 X10^3/uL (4.5-11.0)
[2021-07-30 05:36] LABS: Alanine Aminotransferase 79 IU/L (<50); Albumin 3.1 g/dL (3.5-5.0); Albumin Globulin Ratio 1.1 (1.0-2.8); Alkaline Phosphatase 48 U/L (38-126); Aspartate Aminotransferase 80 IU/L (17-59); Bilirubin Total 0.6 mg/dL (0.2-1.3); Bilirubin Unconjugated 0.3 mg/dL (0.0-1.1); Globulin 2.8 g/dL (1.7-4.1); HEMOLYSIS < 15 (0-50); Total Protein 5.9 g/dL (6.3-8.2)
[2021-07-30 05:39] LABS: BUN Creatinine Ratio 15.3 (6-22); Blood Urea Nitrogen 9 mg/dL (9-20); Carbon Dioxide 27 mmol/L (22-32); Chloride 107 mmol/L (98-107); Estimated Glomerular Filt Rate > 60.0 mL/min (>60); Glucose 112 mg/dL (70-100); HEMOLYSIS < 15 (0-50); Potassium 3.4 mmol/L (3.4-5.1); Sodium 140 mmol/L (137-145)
[2021-07-30] MEDS: LORazepam 2 MG/ML INJ 1 MG IV (05:51)
[2021-07-30] MEDS: levETIRAcetam 1,000 MG in SODIUM CHLORIDE 0.9% 100 ML 440 ML IV ×3 (05:51→21:04)
[2021-07-30] MEDS: DEXTROSE 5% IV ×2 (06:15→17:59)
[2021-07-30] MEDS: WATER IV ×2 (06:15→17:59)
[2021-07-30] MEDS: VALPROIC ACID IV ×2 (06:15→17:59)
--- NOTE | 2021-07-30 07:59 | PM.PN.1 ---
Subjective Subjective Date Patient Seen: 07/30/21 Interval history: He is seen today to follow-up his epilepsy and colon cancer surgery. He is very heavily sedated from the lorazepam that he has just received and does not engage with me during my visit. Overnight he had 2 separate episodes of seizures with the hospitalist service consulting. He is now on lorazepam 1 mg q.6 routinely until the additional IV valproate in conjunction with the IV levetiracetam/phenytoin is at levels strong enough to prevent seizures. He continues with postop ileus which is the reason he is not able to take his oral primidone and zonisamide which had been controlling his seizures along with the Keppra and phenytoin. This was discussed earlier by the nocturnal hospitalist with Dr. Marques his neurologist in [place]. His heart rate is 110 with a blood pressure 121/81. His AST is 80 with an ALT of 79. The white blood count is 12.6 with a hemoglobin of 13.0 Exam Vital Signs (past 8 hours): - 07/30/21 00:00 07/30/21 04:00 07/30/21 07:40 Temperature 100 F H 99.4 F 99.5 F Pulse Rate 113 H 115 H 110 H Respiratory Rate 17 17 22 Blood Pressure 136/80 134/81 121/81 Pulse Oximetry 92 93 93 Oxygen Delivery Method Nasal Cannula Oxygen Flow Rate 0 Narrative Exam Narrative: He is sedated and in no apparent distress. He does not appear postictal or to be actively seizing. Heart is regular rate and rhythm without murmur Lungs are clear to auscultation bilaterally Light palpation of the abdomen does make him flinch. There is no ankle edema. Objective Labs Result Diagrams: 07/30/21 05:10 07/30/21 05:10 Labs: Laboratory Results - last 24 hr 07/29/21 07/30/21 07/30/21 21:26 01:50 05:10 WBC 12.6 H RBC 3.98 L Hgb 13.0 L Hct 37.4 L MCV 94.0 MCH 32.6 MCHC 34.7 RDW 12.6 Plt Count 276 Neut % (Auto) 78.6 H Lymph % (Auto) 10.6 L [place] % (Auto) 9.3 Eos % (Auto) 1.2 L Baso % (Auto) 0.3 Neut # (Auto) 9900 H Lymph # (Auto) 1300 [place] # (Auto) 1200 H Eos # (Auto) 200 Baso # (Auto) 0 Sodium Potassium Chloride Carbon Dioxide BUN Creatinine Estimated GFR BUN/Creatinine Ratio Glucose Calcium Magnesium 1.9 Total Bilirubin Conjugated Bilirubin Unconjugated Bilirubin AST ALT Alkaline Phosphatase Total Protein Albumin Globulin Albumin/Globulin Ratio Urine Color Yellow Urine Appearance Clear Urine pH 5.0 Ur Specific [place] >=1.030 H Urine Protein 1+ H Urine Glucose (UA) Negative Urine Ketones 1+ H Urine Occult Blood 2+ H Urine Nitrate Negative Urine Bilirubin Negative Urine Urobilinogen 0.2 Ur Leukocyte Esterase Trace H Urine RBC 1-5/hpf Urine WBC 1-5/hpf Urine Bacteria None seen Hyaline Casts 1-5/lpf Ur Culture Indicated? Specimen cultured 07/30/21 07/30/21 05:10 05:10 WBC RBC Hgb Hct MCV MCH MCHC RDW Plt Count Neut % (Auto) Lymph % (Auto) [place] % (Auto) Eos % (Auto) Baso % (Auto) Neut # (Auto) Lymph # (Auto) [place] # (Auto) Eos # (Auto) Baso # (Auto) Sodium 140 Potassium 3.4 Chloride 107 Carbon Dioxide 27 BUN 9 Creatinine 0.59 L Estimated GFR > 60.0 BUN/Creatinine Ratio 15.3 Glucose 112 H Calcium 8.0 L Magnesium Total Bilirubin 0.6 Conjugated Bilirubin 0.0 Unconjugated Bilirubin 0.3 AST 80 H ALT 79 H Alkaline Phosphatase 48 Total Protein 5.9 L Albumin 3.1 L Globulin 2.8 Albumin/Globulin Ratio 1.1 Urine Color Urine Appearance Urine pH Ur Specific [place] Urine Protein Urine Glucose (UA) Urine Ketones Urine Occult Blood Urine Nitrate Urine Bilirubin Urine Urobilinogen Ur Leukocyte Esterase Urine RBC Urine WBC Urine Bacteria Hyaline Casts Ur Culture Indicated? [facility] Medical History Hemorrhoid (~02/15/14) Postop check Seizure Static encephalopathy Surgical History Hx of colonoscopy Hx of oral surgery Family History Father CAD (coronary artery disease) Hypertension Diabetes mellitus Cancer Mother CAD (coronary artery disease) Hypertension Stroke Social History marital status: household members: family Smoking Status: Never smoker alcohol intake: never substance use type: does not use Assessment & Plan Assessment & Plan narrative: Mr. Jha is a 50M with developmental delay, seizure disorder, and colon cancer s/p colectomy who had witnessed seizure like activity. 1. Acute seizure, seizure disorder -patient has a difficult to control seizure disorder, that has had breakthrough seizures despite being on four anti-epileptics -has had zonisamide and primidone held due to being NPO -ideally would be back on these medications as soon as can tolerate PO, as there is no IV formulation of zonisamide/primidone -primidone being stopped abruptly can lead to withdrawal, also precipitating seizures -check urinalysis for evidence of infection, check bmp/electrolytes and replete prn -stop scopolamine as has been described as having side effect of seizure -continue IV keppra and IV phenytoin -order for IV valproate, received loading dose, then ordered for 375mg q8 -check valproate level 1hr before next valproate dose, with goal trough of 50-100, per neuro may need to target higher trough (80-100) -second seizure did happen at approximately 1am on 07/30, did receive 2mg IV ativan, but seizure appeared to break before this medication was administered -order for ativan 1mg IV q6 scheduled to lessen primidone withdrawal 2. Colon cancer s/p colectomy with post-operative ileus -patient is NPO for now -NG tube is in place to suction -primary management per surgical team CODE: Full Proxy: Ruma Jha, mother Time Spent With Patient Critical Care time: I spent a total of [] minutes of critical care time on this patient's care today; this time is exclusive of procedural time. Quality VTE Deep Vein Thrombosis/Pulmonary Embolism Present on Admission: No
--- NOTE | 2021-07-30 08:21 | CM.DPC ---
DCP Cont: Checked with nurse, Mary, to see how patient was doing. He has NG tube in place. She mentioned that patient did have a seizure in the night. He is stable at this time. She stated that patient will be getting up today and doing some ambulation. Per the care management recent notes, patient is developmentally delayed and resides with his parents here in [place]. P: DCP to continue to follow for any needs. Annabella Reno RN/Incubator Tender
--- NOTE | 2021-07-30 10:24 | PM.PN.1 ---
Subjective Subjective Date Patient Seen: 07/30/21 Time Patient Seen: 10:24 Interval history: Aniceto had 2 seizures overnight. He is now on Ativan. He is lethargic. He continues to have hiccups. Epidural was removed yesterday. Exam Vital Signs (past 8 hours): - 07/30/21 04:00 07/30/21 07:40 07/30/21 09:05 Temperature 99.4 F 99.5 F Pulse Rate 115 H 110 H Respiratory Rate 17 22 Blood Pressure 134/81 121/81 Pulse Oximetry 93 93 90 L Oxygen Delivery Method Room Air Oxygen Flow Rate 0 Narrative Exam Narrative: Sleepy Abdomen soft dressing intact Objective Labs Result Diagrams: 07/30/21 05:10 07/30/21 05:10 Labs: Laboratory Results - last 24 hr 07/29/21 07/30/21 07/30/21 21:26 01:50 05:10 WBC 12.6 H RBC 3.98 L Hgb 13.0 L Hct 37.4 L MCV 94.0 MCH 32.6 MCHC 34.7 RDW 12.6 Plt Count 276 Neut % (Auto) 78.6 H Lymph % (Auto) 10.6 L [place] % (Auto) 9.3 Eos % (Auto) 1.2 L Baso % (Auto) 0.3 Neut # (Auto) 9900 H Lymph # (Auto) 1300 [place] # (Auto) 1200 H Eos # (Auto) 200 Baso # (Auto) 0 Sodium Potassium Chloride Carbon Dioxide BUN Creatinine Estimated GFR BUN/Creatinine Ratio Glucose Calcium Magnesium 1.9 Total Bilirubin Conjugated Bilirubin Unconjugated Bilirubin AST ALT Alkaline Phosphatase Total Protein Albumin Globulin Albumin/Globulin Ratio Urine Color Yellow Urine Appearance Clear Urine pH 5.0 Ur Specific [place] >=1.030 H Urine Protein 1+ H Urine Glucose (UA) Negative Urine Ketones 1+ H Urine Occult Blood 2+ H Urine Nitrate Negative Urine Bilirubin Negative Urine Urobilinogen 0.2 Ur Leukocyte Esterase Trace H Urine RBC 1-5/hpf Urine WBC 1-5/hpf Urine Bacteria None seen Hyaline Casts 1-5/lpf Ur Culture Indicated? Specimen cultured 07/30/21 07/30/21 05:10 05:10 WBC RBC Hgb Hct MCV MCH MCHC RDW Plt Count Neut % (Auto) Lymph % (Auto) [place] % (Auto) Eos % (Auto) Baso % (Auto) Neut # (Auto) Lymph # (Auto) [place] # (Auto) Eos # (Auto) Baso # (Auto) Sodium 140 Potassium 3.4 Chloride 107 Carbon Dioxide 27 BUN 9 Creatinine 0.59 L Estimated GFR > 60.0 BUN/Creatinine Ratio 15.3 Glucose 112 H Calcium 8.0 L Magnesium Total Bilirubin 0.6 Conjugated Bilirubin 0.0 Unconjugated Bilirubin 0.3 AST 80 H ALT 79 H Alkaline Phosphatase 48 Total Protein 5.9 L Albumin 3.1 L Globulin 2.8 Albumin/Globulin Ratio 1.1 Urine Color Urine Appearance Urine pH Ur Specific [place] Urine Protein Urine Glucose (UA) Urine Ketones Urine Occult Blood Urine Nitrate Urine Bilirubin Urine Urobilinogen Ur Leukocyte Esterase Urine RBC Urine WBC Urine Bacteria Hyaline Casts Ur Culture Indicated? [facility] Medical History Hemorrhoid (~02/15/14) Postop check Seizure Static encephalopathy Surgical History Hx of colonoscopy Hx of oral surgery Family History Father CAD (coronary artery disease) Hypertension Diabetes mellitus Cancer Mother CAD (coronary artery disease) Hypertension Stroke Social History marital status: household members: family Smoking Status: Never smoker alcohol intake: never substance use type: does not use Assessment & Plan Assessment and plan (1) Postop check: Status: Acute Plan: Unfortunately with an ileus it will be difficult to have him on his normal oral regimen of antiseizure medications so we will have to give Ativan to prevent seizures. Once he is passing gas we can remove the NG tube in start him on a liquid diet. DC Pulliam catheter and start Lovenox today. Time Spent With Patient Critical Care time: I spent a total of [] minutes of critical care time on this patient's care today; this time is exclusive of procedural time. Quality VTE Deep Vein Thrombosis/Pulmonary Embolism Present on Admission: No
[2021-07-30] MEDS: FOSPHENYTOIN PE IV ×2 (11:03→21:05)
[2021-07-30] MEDS: SODIUM CHLORIDE IV ×2 (11:03→21:05)
[2021-07-30] MEDS: SODIUM CHLORIDE 0.9% 1,000 ML 100 ML IV (11:03)
[2021-07-30] MEDS: ENOXAPARIN 40 MG/0.4 ML SYRINGE SUBCUT (11:05)
--- NOTE | 2021-07-30 11:31 | PT.IPTN ---
Current Diagnoses Malignant neoplasm of colon, unspecified (07/26/21) Encounter for follow-up examination after completed treatment for conditions other than malignant neoplasm (07/26/21) Surgery Performed Operation Date: 07/26/21 07:45 Actual Procedures p Laparoscopically Assisted Colectomy(Not Applicable) - Harjinder Hannah MD Physical Therapy Treatment Note M2 PT-IP Current Condition Start: 07/27/21 12:31 Freq: NEEDED Status: Active Protocol: Document 07/28/21 12:00 AB (Rec: 07/28/21 14:14 AB [id number]) Physical Therapy Current Condition Current Condition Evaluation Date 07/28/21 Treatment Diagnosis colon CA s/p colectomy; difficulty in walking Onset Date 07/26/21 M3 PT-IP Subjective Start: 07/27/21 12:31 Freq: NEEDED Status: Active Protocol: Document 07/30/21 11:07 KS (Rec: 07/30/21 11:49 KS [id number]) Subjective Physical Therapy Visit Type Type Treatment Note Visit Start Time 11:07 Visit Stop Time 11:31 Total Visit Minutes 24 Number of OFFICE ADMINISTRATIVE ASSISTANT Visits 1 Physical Therapy Visit Comments Patient Comments agreeable to do PT, pts mother present during treatment M4 PT-IP Mobility and Gait Start: 07/27/21 12:31 Freq: NEEDED Status: Active Protocol: Document 07/30/21 11:07 KS (Rec: 07/30/21 11:49 KS [id number]) PT-Transfer Assessment Sit to and From Stand Sit to and from Stand Minimal Assistance,1 Person Assistance,Use of Upper Extremities Equipment Transfer Assistive Device None,Gait Belt,Front Wheeled Walker Transfers Transfer Destination Chair Transfer Ability Level of Assist Minimal Assistance Comments Mobility Comments Pt in chair upon arrival from therapy. CGA for scooting to EOC, Min A and cues for sit<> stand w/ FWW. Pt had retro lean upon standing, needing Min A to correct. Pt then completed 30 seconds weight shifting, posterior LOB Mod A to maintain standing. Pt then performed 2x[address] Pt sat back down and completed 1x10 bilateral ankle pumps, quad sets, and glute sets to promote blood flow and strengthening. He then sit<> stand w/ FWW Min A and ambulated ~10 ft w/ FWW Min A and cues for FWW management. Pt ambulated slowly w/ decreased stride and foot clearance and poor balance but able to follow commands and cues. Pt returned to chair stand<>sit Min A and cues for slow descent. Pt left in chair w/ all needs in reach w/ mother in room. Pts mother requested helmet application w / transfers and ambulation. Gait Assessment Gait Gait Assistance Required: Minimum Assistance,1 Person Assist Distance (Feet) 10 Assistive Devices Assistive Device Gait Belt,Front Wheeled Walker Orthotic/Prosthetic Devices or Brace: No Gait Deviations General Gait Pattern Decreased Stride Length, Decreased Feet Clearance Factors Limiting Gait Function Factors Limiting Gait Function Decreased Activity Tolerance, Decreased Strength,Poor Balance,Poor Safety Awareness Comments Gait Comments Please refer to mobility section for details. Pts mother wants pt to wear helmet when ambulating. PT-Balance Assessment Sitting Balance and Reactions Static Sitting Balance Ability Poor Dynamic Sitting Balance Ability Poor Standing Balance and Reactions Static Standing Balance Ability Poor Dynamic Standing Balance Ability Poor Device Used FWW M5 PT-IP Objective Assessments Start: 07/27/21 12:31 Freq: NEEDED Status: Active Protocol: Document 07/28/21 12:00 AB (Rec: 07/28/21 14:14 AB [id number]) Orientation Orientation/Cognition Level of Alertness Alert Orientation Name,Place,Situation Language Function Ability Word Finding Difficulties Safety Awareness Decreased Safety Awareness Gross Range of Motion Lower Extremity ROM Assessment Within Functional Limits Strength Lower Extremity Strength Assessment Bilaterally Impaired Comments Strength Comments RLE: 4-/5 LLE: 3-/5 Muscle Tone Muscle Tone WNL No Other Assessments Other Other Assessments decrease motor control on LLE M6 PT-IP Treatment Start: 07/27/21 12:31 Freq: NEEDED Status: Active Protocol: Document 07/30/21 11:07 KS (Rec: 07/30/21 11:49 PA [id number]) Physical Therapy Treatment Exercises Exercises Ankle Pumps,Gluteal Sets,Quad Sets Education Education Provided Precautions,Safety M7 PT-IP Assessment and Plan Start: 07/27/21 12:31 Freq: NEEDED Status: Active Protocol: Document 07/30/21 11:07 KS (Rec: 07/30/21 11:49 KS [id number]) PT Summary Assessment and Plan Potential Rehabilitation Potential Fair Status of Condition at Evaluation Evolving Summary Impairments Pain,ROM,Strength,Balance, Coordination,Sensation,Tone, Cognition,Bed Mobility, Transfers,Gait,Activity Tolerance Assessment Summary Pt CGA for scooting EOB and Min A and cues for sit<>stand today. Pt had posterior lean and 1x posterior LOB needing Mod A to recover. Able to tolerate LE strengthening exercises and 2x sit<>stands and 10 ft ambulation w/ FWW Min A. Will continue to assess pt progress. Goals Bed Mobility Goal Moderate Assistance Transfer Goal Moderate Assistance,Front Wheeled Walker Gait Goal Moderate Assistance,Front Wheel Walker Gait Distance 25 Other Goals improve bed mobility, transfers SBA using fWW, ambulation using FWW SBA 150 ft 3 steps R rail ascending CGA Days to Meet Goals 10 Frequency of Treatment Frequency Of Treatment Once a Day Treatment Plan Physical Therapy Treatment Plan Bed Mobility Training,Transfer Training,Gait Training, Therapeutic Exercise,Balance Retraining,Post Op Education, Discharge Planning,Hot or Cold Pack,Neuromuscular Re-ed, Coordination Retraining,Manual Therapy Precautions Abdominal Surgery Precautions Log Roll,Lifting Restrictions, Gait Belt above Incisional Area Recommendations To Nursing Amount of Assist Needed 2 Person Assist Discharge Recommendations PT Discharge Recommendations SNF Rehab Transportation Needs at Discharge Wheelchair/Cabulance
--- NOTE | 2021-07-30 15:15 | OT.IPNOTE ---
Pt asleep in the bed and pt's mother wanting him to continue to rest. Therefore will not be able to do OT eval until 08/01 as no OT on Tuesday 07/31. Pt's mother requested LB dressing equipment from OT and will issued to pt on 08/01/21 during OT eval.
--- NOTE | 2021-07-30 18:13 | PC.NURSE ---
PT ON ROOM AIR WITH SPO2 92-100% - LUNGS SLIGHT DIMINISHED AT BASES OTHERWISE CLEAR- ABD WITH VERTICAL MIDLINE INCISION AND GAUZE DRESSING TO SHAILA DRAIN ( SERO-SANG ) ASSISTED UP TO CHAIR EARLIER IN SHIFT AND HE ALSO WORKED WITH PT- PT PREFERS TO WEAR HELMET WHEN UP. HE REMAINS NPO - HAS VERY FEW TYMPANIC BT'S AND DENIES FLATUS- ALSO DENYING ANY PAIN OR DISCOMFORT- NAIF GAITAN'D AT 1745 AND HE WAS INSTRUCTED TO USE URINAL HE REPORTD HE WILL NOT HAVE DIFFICULTY USING AND WILL NEED TO VOID BY 0145 07/31
[2021-07-31] VITALS (28 sets, daily range): BP systolic 128–176; BP diastolic 69–101; PULSE 89–108; RESP 16–22; TEMP 36.3–37.5; O2SAT 81–97
--- NOTE | 2021-07-31 00:44 | PC.NURSE ---
Event Note: ~ Midnight, pt desaturating to approx 88% while awake. Instructed to use incentive spirometer, placed on 1LNC. Currently saturating 93% on 1LNC.
[2021-07-31] MEDS: LORazepam 2 MG/ML INJ 0.5 MG IV ×2 (00:55→05:54)
[2021-07-31] MEDS: SODIUM CHLORIDE 0.9% 1,000 ML 100 ML IV (00:56)
--- NOTE | 2021-07-31 01:19 | PC.NURSE ---
Addendum entered by Aster Jha R.N. 07/31/21 06:20: Loose stool x2 this shift. Addendum entered by Aster Jha R.N. 07/31/21 06:10: Pt still unable to void, says it feels like razor blades when he tries. ~200 ml on bladder scan. Put quite a bit of fluid out in Dc and NG (see I&O) but also appears to have generalized edema and ongoing supplemental oxygen needs. Lung sounds clear. Dr. Novoa informed, obtained orders for straight cath and UA. Pt. refusing at this time, will continue to discuss and educated. Original Note: SHIFT: Report received, care assumed 193. Pt A&Ox4. VSS. Denies pain. Skin demonstrates significant but blanchable redness to bilateral buttocks. Waffle cushion in place, barrier lotion applied. Pt. encouraged to get OOB; he sat up in chair for a couple hours. Increased oxygen needs with sleep (see other Nurse Note); hopefully we can increase his activity level tomorrow. Pulliam was discontinued this afternoon. Pt. unable to void. Bladder scan demonstrates only 120-130ml.
[2021-07-31 05:08] LABS: Add Manual Diff / Slide Review NO; Basophils Absolute Auto 100 /uL (0-100); Basophils Percent Auto 0.8 % (0-2); Eosinophils Absolute Auto 400 /uL (0-450); Eosinophils Percent Auto 2.6 % (2-4); Hemoglobin 12.9 g/dL (13.5-17.5); Lymphocytes Absolute Auto 1300 /uL (1100-4500); Lymphocytes Percent Auto 9.2 % (25-40); Mean Corpuscular HGB Conc 33.9 % (30-36); Mean Corpuscular Hemoglobin 32.1 PG (26-34); Mean Corpuscular Volume 94.7 fL (80-100); Monocytes Absolute Auto 1400 /uL (0-900); Monocytes Percent Auto 9.5 % (3-14); Neutrophils Absolute Auto 11400 /uL (1500-7000); Neutrophils Percent Auto 77.9 % (50-75); Platelet Count 283 X10^3/uL (150-400); Red Blood Cell Count 4.01 X10^6/uL (4.5-5.9); Red Cell Distribution Width 12.6 % (11.6-14.8); White Blood Cell Count 14.6 X10^3/uL (4.5-11.0)
[2021-07-31 05:15] LABS: BUN Creatinine Ratio 18.6 (6-22); Blood Urea Nitrogen 13 mg/dL (9-20); Calcium 8.1 mg/dL (8.4-10.2); Carbon Dioxide 28 mmol/L (22-32); Chloride 106 mmol/L (98-107); Estimated Glomerular Filt Rate > 60.0 mL/min (>60); Glucose 92 mg/dL (70-100); HEMOLYSIS < 15 (0-50); Potassium 3.2 mmol/L (3.4-5.1); Sodium 142 mmol/L (137-145)
[2021-07-31] MEDS: levETIRAcetam 1,000 MG in SODIUM CHLORIDE 0.9% 100 ML 440 ML IV ×2 (05:56→14:26)
[2021-07-31] MEDS: VALPROIC ACID IV (06:26)
[2021-07-31] MEDS: WATER IV (06:26)
[2021-07-31] MEDS: DEXTROSE 5% IV (06:26)
[2021-07-31] MEDS: FOSPHENYTOIN PE IV (08:17)
[2021-07-31] MEDS: SODIUM CHLORIDE IV (08:17)
--- NOTE | 2021-07-31 08:44 | P.PN_ITS ---
Subjective Subjective Date Patient Seen: 07/31/21 Time Patient Seen: 08:44 Interval history: Shay removed last night and unable to void. He has passed flatus and stools starting last night. Exam Vital Signs (past 8 hours): - 07/31/21 03:30 07/31/21 08:00 07/31/21 08:08 Temperature 98.4 F 99.5 F Pulse Rate 98 H 108 H Respiratory Rate 20 20 Blood Pressure 128/69 130/83 Pulse Oximetry 97 94 93 Oxygen Delivery Method Room Air Oxygen Flow Rate 0 Narrative Exam Narrative: Sleepy Abdomen soft, nontender Drain output is pink, serous Objective Labs Result Diagrams: 07/31/21 04:32 07/31/21 04:32 Labs: Laboratory Results - last 24 hr 07/31/21 07/31/21 04:32 04:32 WBC 14.6 H RBC 4.01 L Hgb 12.9 L Hct 38.0 L MCV 94.7 MCH 32.1 MCHC 33.9 RDW 12.6 Plt Count 283 Neut % (Auto) 77.9 H Lymph % (Auto) 9.2 L [place] % (Auto) 9.5 Eos % (Auto) 2.6 Baso % (Auto) 0.8 Neut # (Auto) 99487 H Lymph # (Auto) 1300 [place] # (Auto) 1400 H Eos # (Auto) 400 Baso # (Auto) 100 Sodium 142 Potassium 3.2 L Chloride 106 Carbon Dioxide 28 BUN 13 Creatinine 0.70 Estimated GFR > 60.0 BUN/Creatinine Ratio 18.6 Glucose 92 Calcium 8.1 L PFSH Medical History Hemorrhoid (~02/15/14) Postop check Seizure Static encephalopathy Surgical History Hx of colonoscopy Hx of oral surgery Family History Father CAD (coronary artery disease) Hypertension Diabetes mellitus Cancer Mother CAD (coronary artery disease) Hypertension Stroke Social History marital status: household members: family Smoking Status: Never smoker alcohol intake: never substance use type: does not use Assessment & Plan Assessment and plan (1) Postop check: Status: Acute Plan: DC NG tube and start clears Ok to restart oral antiseizure medications but recommend continued IV anti- seizure meds until he is tolerating a diet and we know the oral agents are being absorbed through the gut If he is unable to void by noon he will need a straight cath or shay Time Spent With Patient Critical Care time: I spent a total of [] minutes of critical care time on this patient's care today; this time is exclusive of procedural time. Quality VTE Deep Vein Thrombosis/Pulmonary Embolism Present on Admission: No
[2021-07-31 09:29] LABS: Valproic Acid (Depakene) Total 33 ug/mL (50-100)
[2021-07-31] MEDS: ENOXAPARIN 40 MG/0.4 ML SYRINGE SUBCUT (10:04)
[2021-07-31] MEDS: NYSTATIN CREAM 30 GM 1 APPLIC TOP ×3 (14:24→21:00)
[2021-07-31] MEDS: ZONISAMIDE 100 MG CAPSULE PO (14:25)
--- NOTE | 2021-07-31 15:21 | PT.IPTN ---
Current Diagnoses Malignant neoplasm of colon, unspecified (07/26/21) Encounter for follow-up examination after completed treatment for conditions other than malignant neoplasm (07/26/21) Surgery Performed Operation Date: 07/26/21 07:45 Actual Procedures p Laparoscopically Assisted Colectomy(Not Applicable) - Harjinder Hannah MD Physical Therapy Treatment Note M2 PT-IP Current Condition Start: 07/27/21 12:31 Freq: NEEDED Status: Active Protocol: Document 07/28/21 12:00 AB (Rec: 07/28/21 14:14 AB [id number]) Physical Therapy Current Condition Current Condition Evaluation Date 07/28/21 Treatment Diagnosis colon CA s/p colectomy; difficulty in walking Onset Date 07/26/21 M3 PT-IP Subjective Start: 07/27/21 12:31 Freq: NEEDED Status: Active Protocol: Document 07/31/21 15:10 LJ (Rec: 07/31/21 15:21 LJ [id number]) Subjective Physical Therapy Visit Type Type Treatment Note Visit Start Time 14:51 Visit Stop Time 15:10 Total Visit Minutes 19 Number of POSTAL WORKER Visits 2 Physical Therapy Visit Comments Patient Comments agreeable to do PT, pts mother present during treatment M4 PT-IP Mobility and Gait Start: 07/27/21 12:31 Freq: NEEDED Status: Active Protocol: Document 07/31/21 15:10 LJ (Rec: 07/31/21 15:21 LJ [id number]) PT-Transfer Assessment Sit to and From Stand Sit to and from Stand Contact Guard Assistance,1 Person Assistance,Use of Upper Extremities Equipment Transfer Assistive Device Gait Belt,Front Wheeled Walker Transfers Transfer Destination Chair Transfer Ability Level of Assist Contact Guard Assistance,1 Person Assistance,Use of Upper Extremities Comments Mobility Comments Pt seated in chair. States he had just returned from walking in hallway with nursing but would like to do it again. Pt CGA and assist with IV sit<> stand. No LOB. He donned helmet independently. Ambulated with FWW in hallway around nurse's station ~160' CGA and assist with IV. Returned to room and left seated in chair with all needs within reach and mother in room. Gait Assessment Gait Gait Assistance Required: Contact Guard Assist,1 Person Assist Distance (Feet) 160 Assistive Devices Assistive Device Gait Belt,Front Wheeled Walker Orthotic/Prosthetic Devices or Brace: No Gait Deviations General Gait Pattern Decreased Stride Length, Decreased Feet Clearance Factors Limiting Gait Function Factors Limiting Gait Function Decreased Activity Tolerance, Decreased Strength,Poor Safety Awareness Comments Gait Comments refer to mobility section M5 PT-IP Objective Assessments Start: 07/27/21 12:31 Freq: NEEDED Status: Active Protocol: Document 07/28/21 12:00 AB (Rec: 07/28/21 14:14 AB [id number]) Orientation Orientation/Cognition Level of Alertness Alert Orientation Name,Place,Situation Language Function Ability Word Finding Difficulties Safety Awareness Decreased Safety Awareness Gross Range of Motion Lower Extremity ROM Assessment Within Functional Limits Strength Lower Extremity Strength Assessment Bilaterally Impaired Comments Strength Comments RLE: 4-/5 LLE: 3-/5 Muscle Tone Muscle Tone WNL No Other Assessments Other Other Assessments decrease motor control on LLE M6 PT-IP Treatment Start: 07/27/21 12:31 Freq: NEEDED Status: Active Protocol: Document 07/31/21 15:10 LJ (Rec: 07/31/21 15:21 LJ [id number]) Physical Therapy Treatment Education Education Provided Precautions,Safety M7 PT-IP Assessment and Plan Start: 07/27/21 12:31 Freq: NEEDED Status: Active Protocol: Document 07/31/21 15:10 LJ (Rec: 07/31/21 15:21 LJ [id number]) PT Summary Assessment and Plan Potential Rehabilitation Potential Good Status of Condition at Evaluation Evolving Summary Impairments Pain,ROM,Strength,Balance, Coordination,Sensation,Tone, Cognition,Bed Mobility, Transfers,Gait,Activity Tolerance Assessment Summary Pt shwoed improvement since yesterday. Improved coordination and balance as well as activity tolerance. Continue to progress activity, ambulation, and strengthening to return to baseline. Goals Bed Mobility Goal Moderate Assistance Transfer Goal Moderate Assistance,Front Wheeled Walker Gait Goal Moderate Assistance,Front Wheel Walker Gait Distance 25 Other Goals improve bed mobility, transfers SBA using fWW, ambulation using FWW SBA 150 ft 3 steps R rail ascending CGA Days to Meet Goals 10 Frequency of Treatment Frequency Of Treatment Once a Day Treatment Plan Physical Therapy Treatment Plan Bed Mobility Training,Transfer Training,Gait Training, Therapeutic Exercise,Balance Retraining,Post Op Education, Discharge Planning,Hot or Cold Pack,Neuromuscular Re-ed, Coordination Retraining,Manual Therapy Other Recommendations and Next Treatment stair training Focus Precautions Abdominal Surgery Precautions Log Roll,Lifting Restrictions, Gait Belt above Incisional Area Recommendations To Nursing Amount of Assist Needed 1 Person Assist Discharge Recommendations PT Discharge Recommendations Home with Assistance Transportation Needs at Discharge Wheelchair/Cabulance
[2021-07-31 17:59] LABS: Appearance Urine UA SL CLOUDY; Bilirubin Urine UA 1+ (NEGATIVE); Color Urine UA YELLOW; Glucose Urine UA NEGATIVE (Negative); Ketones Urine UA 3+ (NEGATIVE); Leukocyte Esterase Urine UA NEGATIVE (NEGATIVE); Nitrite Urine UA NEGATIVE (Negative); Occult Blood Urine UA 3+ (Negative); Protein Urine UA 1+ (Negative); Specific Gravity Urine UA 1.025 (1.000-1.035); Urobilinogen Urine UA 0.2 E.U./dL (0.2); pH Urine UA 5.5 (4.5-8.0)
[2021-07-31] MEDS: ZONISAMIDE 100 MG CAPSULE 200 MG PO (18:01)
[2021-07-31 18:06] LABS: Ictotest Urine Negative (Negative); RBC Urine 1-5/HPF (0-5/HPF); WBC Urine 1-5/HPF (0-5/HPF)
[2021-07-31 18:07] LABS: Amorphous Sediment Urine 1+; Bacteria Urine None Seen; Culture Indicated Urine Specimen Cultured; Mucus Urine 3+ (Negative)
[2021-07-31] MEDS: POTASSIUM CHLORIDE IN WATER 10 MEQ/100 ML PIGGYBACK 100 MEQ IV ×4 (18:07→22:49)
[2021-07-31] MEDS: PHENYTOIN ER 100 MG CAPSULE PO (18:08)
[2021-07-31] MEDS: PRIMIDONE 50 MG TABLET 250 MG PO ×2 (18:08→21:07)
[2021-07-31] MEDS: levETIRAcetam 250 MG TABLET 1000 MG PO (18:09)
--- NOTE | 2021-07-31 18:48 | PM.PN.1 ---
Subjective Subjective Date Patient Seen: 07/31/21 Interval history: Patient taking p.o. and has not had any further seizures. Mom notes that he has never been completely seizure-free with his epilepsy. Exam Vital Signs (past 8 hours): - 07/31/21 11:36 07/31/21 12:00 07/31/21 15:30 Temperature 98.5 F Pulse Rate 105 H Respiratory Rate 20 Blood Pressure 135/80 Pulse Oximetry 93 97 93 Oxygen Delivery Method Room Air Oxygen Flow Rate 0 Narrative Exam Narrative: General: Alert and pleasant and in no distress Abdomen: Good bowel sounds Objective Labs Result Diagrams: 07/31/21 04:32 07/31/21 04:32 Labs: Laboratory Results - last 24 hr 07/30/21 07/31/21 07/31/21 05:10 04:32 04:32 WBC 14.6 H RBC 4.01 L Hgb 12.9 L Hct 38.0 L MCV 94.7 MCH 32.1 MCHC 33.9 RDW 12.6 Plt Count 283 Neut % (Auto) 77.9 H Lymph % (Auto) 9.2 L [place] % (Auto) 9.5 Eos % (Auto) 2.6 Baso % (Auto) 0.8 Neut # (Auto) 07225 H Lymph # (Auto) 1300 [place] # (Auto) 1400 H Eos # (Auto) 400 Baso # (Auto) 100 Sodium 142 Potassium 3.2 L Chloride 106 Carbon Dioxide 28 BUN 13 Creatinine 0.70 Estimated GFR > 60.0 BUN/Creatinine Ratio 18.6 Glucose 92 Calcium 8.1 L Urine Color Urine Appearance Urine pH Ur Specific [place] Urine Protein Urine Glucose (UA) Urine Ketones Urine Occult Blood Urine Nitrate Urine Bilirubin Ur Bilirubin Confirm Urine Urobilinogen Ur Leukocyte Esterase Urine RBC Urine WBC Amorphous Sediment Urine Bacteria Urine Mucus Ur Culture Indicated? Total Valproic Acid 33 L 07/31/21 17:00 WBC RBC Hgb Hct MCV MCH MCHC RDW Plt Count Neut % (Auto) Lymph % (Auto) [place] % (Auto) Eos % (Auto) Baso % (Auto) Neut # (Auto) Lymph # (Auto) [place] # (Auto) Eos # (Auto) Baso # (Auto) Sodium Potassium Chloride Carbon Dioxide BUN Creatinine Estimated GFR BUN/Creatinine Ratio Glucose Calcium Urine Color Yellow Urine Appearance Sl cloudy Urine pH 5.5 Ur Specific [place] 1.025 Urine Protein 1+ H Urine Glucose (UA) Negative Urine Ketones 3+ H Urine Occult Blood 3+ H Urine Nitrate Negative Urine Bilirubin 1+ H Ur Bilirubin Confirm Negative Urine Urobilinogen 0.2 Ur Leukocyte Esterase Negative Urine RBC 1-5/hpf Urine WBC 1-5/hpf Amorphous Sediment 1+ Urine Bacteria None seen Urine Mucus 3+ H Ur Culture Indicated? Specimen cultured Total Valproic Acid PFSH Medical History Hemorrhoid (~02/15/14) Postop check Seizure Static encephalopathy Surgical History Hx of colonoscopy Hx of oral surgery Family History Father CAD (coronary artery disease) Hypertension Diabetes mellitus Cancer Mother CAD (coronary artery disease) Hypertension Stroke Social History marital status: household members: family Smoking Status: Never smoker alcohol intake: never substance use type: does not use Assessment & Plan Assessment & Plan narrative: Mr. Jha is a 50M with developmental delay, seizure disorder, and colon cancer s/p colectomy who had witnessed seizure like activity. 1. Acute seizure, seizure disorder -patient has a difficult to control seizure disorder, that has had breakthrough seizures despite being on four anti-epileptics -has had zonisamide and primidone held due to being NPO possibly precipitating withdrawal seizures -doubt UTI, urine culture pending -lytes, magnesium normal -stopped scopolamine as has been described as having side effect of seizure -patient now back on routine oral anti epileptics include Keppra, phenytoin, primidone, zonisamide -stopped IV anti epileptics now that taking p.o., also stopped IV Ativan -use Ativan IV as needed for further breakthrough seizures 2. Colon cancer s/p colectomy with post-operative ileus -patient is NPO for now -NG tube is in place to suction -primary management per surgical team CODE: Full Proxy: Ruma Jha, mother Time Spent With Patient Critical Care time: I spent a total of [] minutes of critical care time on this patient's care today; this time is exclusive of procedural time. Quality VTE Deep Vein Thrombosis/Pulmonary Embolism Present on Admission: No
[2021-07-31] MEDS: OXYCODONE IR 10 MG TABLET PO (21:07)
[2021-07-31] MEDS: CALCIUM CARBONATE 500 MG TAB 1000 MG PO (21:08)
[2021-08-01] VITALS (26 sets, daily range): BP systolic 144–160; BP diastolic 80–96; PULSE 89–123; RESP 18–22; TEMP 36.6–37.4; O2SAT 90–95
[2021-08-01] MEDS: ACETAMINOPHEN 325 MG TABLET 650 MG PO (02:34)
--- NOTE | 2021-08-01 06:15 | PC.NURSE ---
Upon shift change pt is resting calmly in bed. Pt is A&Ox4 with unlabored breathing. 2100 pt reports mild abdominal discomfort and noted to have distended soft stomach. Pt given oxycodone for pain. 0230 Pt reports return of diffuse abdominal pain. Stomach is distended and hard to the touch. Pt is belching frequently but is unsure if he is passing gas. Pt given tylenol. 0330 Pt is sleeping Pt has tried multiple times to void in urinal and have a BM. All unsuccessful. 0400 bladder scan reveals 250cc in bladder. Pt sat in arm chair for about an hour this shift.
[2021-08-01] MEDS: ONDANSETRON 4 MG/2 ML INJ IV (08:03)
[2021-08-01] MEDS: HYDROMORPHONE 0.5 MG INJ IV (08:03)
--- NOTE | 2021-08-01 08:25 | DI.RAD.S_ITS ---
PROCEDURE: XR ABDOMEN 1V INDICATIONS: f/u ileus TECHNIQUE: One view of the abdomen acquired. COMPARISON: [facility], CT, CT CHEST ABD PEL W CON, 06/23/2021, 10:57. FINDINGS: Surgical changes and devices: Surgical drain is noted in pelvic region. Bowel: Air distended small bowel and colon loops are noted throughout the abdomen. No gross peritoneal free air. Soft tissues: No suspicious abdominal calcifications. Visualized solid organ contours appear normal in size. Bones: No suspicious bony lesions. IMPRESSION: Markedly distended small bowel and colon loops consistent with ileus. No gross free air. Dictated by: Lupillo Ridley M.D. on 08/01/2021 at 8:49 Approved by: Lupillo Ridley M.D. on 08/01/2021 at 8:50
--- NOTE | 2021-08-01 08:46 | OT.IPNOTE ---
Per nursing hold pt for the day for therapy as pt is abdomen is distended. Therefore check on pt for OT eval tomorrow, in addition to get another OT eval as original OT eval order was on 07/26/21.
[2021-08-01] MEDS: ENOXAPARIN 40 MG/0.4 ML SYRINGE SUBCUT (09:22)
[2021-08-01] MEDS: BISACODYL 10 MG SUPP PR (10:23)
--- NOTE | 2021-08-01 11:13 | P.PN_ITS ---
Subjective Subjective Date Patient Seen: 08/01/21 Time Patient Seen: 11:17 Interval history: NGT removed yesterday. Small amount of stool and flatus. Feels nauseated bloated this AM no emesis. Exam Vital Signs (past 8 hours): - 08/01/21 03:30 08/01/21 04:00 08/01/21 04:30 Temperature 98.3 F Pulse Rate 104 H 102 H 109 H Respiratory Rate 22 Blood Pressure 148/80 H Pulse Oximetry 93 90 L 94 08/01/21 04:50 08/01/21 05:00 08/01/21 05:30 Temperature Pulse Rate 106 H 108 H 105 H Respiratory Rate Blood Pressure 148/80 H Pulse Oximetry 94 94 94 08/01/21 06:00 08/01/21 06:30 08/01/21 07:00 Temperature Pulse Rate 102 H 103 H 104 H Respiratory Rate Blood Pressure Pulse Oximetry 94 93 93 08/01/21 07:30 08/01/21 08:00 08/01/21 08:30 Temperature Pulse Rate 104 H 104 H 105 H Respiratory Rate Blood Pressure Pulse Oximetry 93 93 90 L 08/01/21 08:54 08/01/21 09:00 08/01/21 09:30 Temperature Pulse Rate 106 H 107 H Respiratory Rate Blood Pressure Pulse Oximetry 95 93 95 Oxygen Delivery Method Nasal Cannula Oxygen Flow Rate 2 Narrative Exam Narrative: Gen-Adult man alert and oriented Chest-non labored Abdomen-appropriately tender to palpation. moderately distended. Objective Labs Result Diagrams: 07/31/21 04:32 07/31/21 04:32 Labs: Laboratory Results - last 24 hr 07/31/21 17:00 Urine Color Yellow Urine Appearance Sl cloudy Urine pH 5.5 Ur Specific [place] 1.025 Urine Protein 1+ H Urine Glucose (UA) Negative Urine Ketones 3+ H Urine Occult Blood 3+ H Urine Nitrate Negative Urine Bilirubin 1+ H Ur Bilirubin Confirm Negative Urine Urobilinogen 0.2 Ur Leukocyte Esterase Negative Urine RBC 1-5/hpf Urine WBC 1-5/hpf Amorphous Sediment 1+ Urine Bacteria None seen Urine Mucus 3+ H Ur Culture Indicated? Specimen [facility] Medical History Hemorrhoid (~02/15/14) Postop check Seizure Static encephalopathy Surgical History Hx of colonoscopy Hx of oral surgery Family History Father CAD (coronary artery disease) Hypertension Diabetes mellitus Cancer Mother CAD (coronary artery disease) Hypertension Stroke Social History marital status: household members: family Smoking Status: Never smoker alcohol intake: never substance use type: does not use Assessment & Plan Post-op Postoperative Procedures: Procedures Operation Date: 07/26/21 07:45 Actual Procedure Side Surgeon p Laparoscopically Assisted Colectomy Not Applicable Harjinder Hannah MD Postoperative status narrative: 50M POD 6 sp LAR with persistent ileus Abdominal XR from today reviewed dilated loops of bowel, no transition point. Having small amount of stool and gas but remains quite distended. Keep NPO ok for sips and ice chips. -Suppository and Reglan today -Follow up UA culture -IV anti seizure medicaiton -SCDs and pLovenox Quality VTE Deep Vein Thrombosis/Pulmonary Embolism Present on Admission: No
[2021-08-01 11:48] LABS: Add Manual Diff / Slide Review NO; Basophils Absolute Auto 0 /uL (0-100); Basophils Percent Auto 0.2 % (0-2); Eosinophils Absolute Auto 0 /uL (0-450); Eosinophils Percent Auto 0.3 % (2-4); Hematocrit 44.8 % (41-53); Lymphocytes Absolute Auto 600 /uL (1100-4500); Lymphocytes Percent Auto 5.4 % (25-40); Mean Corpuscular HGB Conc 33.6 % (30-36); Mean Corpuscular Hemoglobin 32.2 PG (26-34); Mean Corpuscular Volume 95.9 fL (80-100); Monocytes Absolute Auto 1700 /uL (0-900); Monocytes Percent Auto 16.4 % (3-14); Neutrophils Absolute Auto 8200 /uL (1500-7000); Neutrophils Percent Auto 77.7 % (50-75); Platelet Count 360 X10^3/uL (150-400); Red Blood Cell Count 4.67 X10^6/uL (4.5-5.9); White Blood Cell Count 10.5 X10^3/uL (4.5-11.0)
[2021-08-01] MEDS: FOSPHENYTOIN PE IV ×2 (12:00→20:24)
[2021-08-01] MEDS: SODIUM CHLORIDE IV ×2 (12:00→20:24)
[2021-08-01 12:01] LABS: BUN Creatinine Ratio 11.2 (6-22); Blood Urea Nitrogen 27 mg/dL (9-20); Calcium 8.6 mg/dL (8.4-10.2); Carbon Dioxide 25 mmol/L (22-32); Chloride 104 mmol/L (98-107); Estimated Glomerular Filt Rate 28.7 mL/min (>60); Glucose 145 mg/dL (70-100); HEMOLYSIS < 15 (0-50); Magnesium 2.1 mg/dL (1.6-2.3); Potassium 4.2 mmol/L (3.4-5.1); Sodium 138 mmol/L (137-145)
[2021-08-01] MEDS: METOCLOPRAMIDE 10 MG/2 ML INJ IV ×3 (12:48→23:54)
[2021-08-01] MEDS: levETIRAcetam 1,000 MG in SODIUM CHLORIDE 0.9% 100 ML 440 ML IV (12:48)
--- NOTE | 2021-08-01 12:53 | CM.DPC ---
DCP Cont: Per Surgeon, pt's NG was discontinued yesterday but today his abdomen is more distended and hard and currently NPO and suppository provided and if pt does not have bowel tones/movement then possible need for NGT to be placed again. Per PT, pt participated well yesterday in ambulation and no concerns but PT/OT on hold today. Plan: SW to follow closely for further improvement vs placement of NGT again and further PT/OT towards confirming safe d/c plan of home with parents when medically stable. [place] Santana
[2021-08-01] MEDS: SODIUM CHLORIDE 0.9% 1,000 ML 1000 ML IV (13:57)
--- NOTE | 2021-08-01 14:48 | PT-IP ANOTE ---
PT remains on hold this afternoon as pt's abdomen is more distended and he may need NG tube placed again. Will check on pt Sunday for PT.
--- NOTE | 2021-08-01 16:10 | DIET.PN1 ---
Dietary Progress Note Assessment: 50y M admitted for planned colon resection with reanastamosis secondary to colon cancer screened by RD for prolonged NPO status. Pt was tolerating clear liquid diet until 07/28/21 when he started feeling nauseous. NGT placed and then removed 07/31/21. Pt imaging showing persistent ileus. Pt may have another NGT placed. Pt with blanchable redness on bottom. Pt NPO x4d, recc initiating TPN if pt remains NPO though tomorrow. Ht: 177.8 cm Wt: 106.594 kg BMI: 33.7 Last BM: 07/31/21 (07/31/21 20:00) MNA: 14 Gasper Score: 22 Diet: 08/01/21 09:39 NPO Diet Diet Modifications: NPO Type: NPO except for Ice Chips Labs: RBC 4.67 X10^6/uL (4.5-5.9) 08/01/21 11:30 Hgb 15.0 g/dL (13.5-17.5) 08/01/21 11:30 Hct 44.8 % (41-53) 08/01/21 11:30 Creatinine 2.41 mg/dL (0.66-1.25) H 08/01/21 11:30 Nutrition Diagnosis: inadequate protein energy intake r/t persistent ileus aeb pt 6d s/p colon resection, pt NPO x4d, ileus on imaging with pt frequent belching and firm abdomen. EER: 1900kcals (18kcal/kg per obese), 125g PRO (1.2g/kg per post-surgical) Monitoring/Evaluations: following closely Electronically Signed by: Ritu Owens 08/01/21 16:10 Clinical Dietitian [address] [id number]
[2021-08-01] MEDS: PIPERACILLIN/TAZO 3.375 GM in SODIUM CHLORIDE 0.9% 100 ML 25 ML IV (18:17)
--- NOTE | 2021-08-01 18:18 | P.PN_ITS ---
Subjective Subjective Date Patient Seen: 08/01/21 Interval history: Patient developed ileus and is NPO again per surgery. Has not had more seizures and surgery restarted IV Keppra and fosphenytoin. Patient also had Pulliam re-inserted due to urinary retention. Exam Vital Signs (past 8 hours): - 08/01/21 12:00 08/01/21 16:30 Temperature 98 F 97.8 F Pulse Rate 100 H 123 H Respiratory Rate 18 18 Blood Pressure 160/90 H 153/96 H Pulse Oximetry 95 95 Oxygen Delivery Method Nasal Cannula Oxygen Flow Rate 3.5 Narrative Exam Narrative: General: Alert and cooperative male somewhat uncomfortable pre Pulliam catheter Objective Labs Result Diagrams: 08/01/21 11:30 08/01/21 11:30 Labs: Laboratory Results - last 24 hr 08/01/21 08/01/21 11:30 11:30 WBC 10.5 RBC 4.67 Hgb 15.0 Hct 44.8 MCV 95.9 MCH 32.2 MCHC 33.6 RDW 13.0 Plt Count 360 Neut % (Auto) 77.7 H Lymph % (Auto) 5.4 L [place] % (Auto) 16.4 H Eos % (Auto) 0.3 L Baso % (Auto) 0.2 Neut # (Auto) 8200 H Lymph # (Auto) 600 L [place] # (Auto) 1700 H Eos # (Auto) 0 Baso # (Auto) 0 Sodium 138 Potassium 4.2 Chloride 104 Carbon Dioxide 25 BUN 27 H Creatinine 2.41 H Estimated GFR 28.7 L BUN/Creatinine Ratio 11.2 Glucose 145 H Calcium 8.6 Phosphorus 6.0 H D Magnesium 2.1 PFSH Medical History Hemorrhoid (~02/15/14) Postop check Seizure Static encephalopathy Surgical History Hx of colonoscopy Hx of oral surgery Family History Father CAD (coronary artery disease) Hypertension Diabetes mellitus Cancer Mother CAD (coronary artery disease) Hypertension Stroke Social History marital status: household members: family Smoking Status: Never smoker alcohol intake: never substance use type: does not use Assessment & Plan Assessment & Plan narrative: Mr. Jha is a 50M with developmental delay, seizure disorder, and colon cancer s/p colectomy who had witnessed seizure like activity. 1. Acute seizure, seizure disorder -patient has a difficult to control seizure disorder, that has had breakthrough seizures despite being on four anti-epileptics -has had zonisamide and primidone held due to being NPO possibly precipitating withdrawal seizures -lytes, magnesium normal -stopped scopolamine -agree with restarting IV Keppra and fosphenytoin due to patient NPO -recommend keeping on the IV anti epileptics until patient is definitely resolving his ileus -use IV Ativan if needed 2. Colon cancer s/p colectomy with post-operative ileus -primary management per surgical team 3. Postop urinary retention -failed trial of Pulliam removal and Pulliam reinserted on August 01 -urine culture from July 31 pending CODE: Full Proxy: Ruma Abhijeet, mother Time Spent With Patient Critical Care time: I spent a total of [] minutes of critical care time on this patient's care today; this time is exclusive of procedural time. Quality VTE Deep Vein Thrombosis/Pulmonary Embolism Present on Admission: No
[2021-08-01] MEDS: levETIRAcetam 750 MG in SODIUM CHLORIDE 0.9% 100 ML 430 ML IV (20:24)
[2021-08-01] MEDS: NYSTATIN CREAM 30 GM 1 APPLIC TOP (20:27)
[2021-08-01] MEDS: SODIUM CHLORIDE 0.9% 1,000 ML 100 ML IV (22:19)
[2021-08-02] VITALS: BP 151/85; PULSE 111; RESP 21; TEMP 37.1; O2SAT 90
[2021-08-02] MEDS: PIPERACILLIN/TAZO 3.375 GM in SODIUM CHLORIDE 0.9% 100 ML 25 ML IV ×3 (00:28→17:43)
[2021-08-02 04:00] VITALS: BP 148/91; PULSE 103; RESP 19; TEMP 36.7; O2SAT 100
[2021-08-02 05:12] LABS: Add Manual Diff / Slide Review NO; Basophils Absolute Auto 0 /uL (0-100); Basophils Percent Auto 0.5 % (0-2); Eosinophils Absolute Auto 100 /uL (0-450); Eosinophils Percent Auto 1.8 % (2-4); Hematocrit 42.2 % (41-53); Hemoglobin 13.9 g/dL (13.5-17.5); Lymphocytes Absolute Auto 800 /uL (1100-4500); Lymphocytes Percent Auto 10.1 % (25-40); Mean Corpuscular Hemoglobin 31.9 PG (26-34); Mean Corpuscular Volume 96.8 fL (80-100); Monocytes Absolute Auto 1600 /uL (0-900); Monocytes Percent Auto 20.7 % (3-14); Neutrophils Absolute Auto 5100 /uL (1500-7000); Neutrophils Percent Auto 66.9 % (50-75); Platelet Count 333 X10^3/uL (150-400); Red Blood Cell Count 4.36 X10^6/uL (4.5-5.9); Red Cell Distribution Width 12.8 % (11.6-14.8); White Blood Cell Count 7.6 X10^3/uL (4.5-11.0)
[2021-08-02 05:17] LABS: BUN Creatinine Ratio 23.8 (6-22); Blood Urea Nitrogen 20 mg/dL (9-20); Calcium 8.1 mg/dL (8.4-10.2); Carbon Dioxide 28 mmol/L (22-32); Chloride 106 mmol/L (98-107); Estimated Glomerular Filt Rate > 60.0 mL/min (>60); Glucose 140 mg/dL (70-100); HEMOLYSIS < 15 (0-50); Phosphorous 3.3 mg/dL (2.5-4.5); Potassium 3.7 mmol/L (3.4-5.1); Sodium 141 mmol/L (137-145)
[2021-08-02] MEDS: METOCLOPRAMIDE 10 MG/2 ML INJ IV ×4 (05:49→22:12)
[2021-08-02 07:45] VITALS: BP 141/78; PULSE 103; RESP 16; TEMP 36.8; O2SAT 99
[2021-08-02] MEDS: levETIRAcetam 750 MG in SODIUM CHLORIDE 0.9% 100 ML 430 ML IV ×2 (08:15→22:10)
[2021-08-02] MEDS: ENOXAPARIN 40 MG/0.4 ML SYRINGE SUBCUT (08:19)
[2021-08-02] MEDS: ZONISAMIDE 100 MG CAPSULE 200 MG PO ×2 (08:23→17:43)
[2021-08-02] MEDS: PRIMIDONE 50 MG TABLET 250 MG PO ×3 (08:24→22:18)
[2021-08-02] MEDS: NYSTATIN CREAM 30 GM 1 APPLIC TOP ×3 (08:39→22:11)
--- NOTE | 2021-08-02 08:55 | OT.IP.EVAL ---
Current Diagnoses Malignant neoplasm of colon, unspecified (07/26/21) Unspecified convulsions (07/26/21) Encounter for follow-up examination after completed treatment for conditions other than malignant neoplasm (07/26/21) Surgery Performed Operation Date: 07/26/21 07:45 Actual Procedures p Laparoscopically Assisted Colectomy(Not Applicable) - Harjinder Hannah MD Past Medical History (Last Reviewed 07/30/21 @ 01:43 by Alfred Novoa MD) Hemorrhoid (~02/15/14) Hx of colonoscopy Hx of oral surgery Postop check Seizure Static encephalopathy Surgical History (Last Reviewed 07/30/21 @ 01:43 by Alfred Novoa MD) Hx of colonoscopy Hx of oral surgery Occupational Therapy Inpatient Evaluation/Re-Eval M1 PT/OT-IP Prior Functional Status Start: 07/27/21 12:31 Freq: NEEDED Status: Active Protocol: Document 08/02/21 08:55 [facility] (Rec: 08/02/21 12:10 [facility] [id number]) Medical Review Prior Functional Status Medical History Reviewed Yes Communication able to make needs known but with some word finding difficulty Mobility and Gait pt stated that he is independent with all mobilities and ambulation without AD Activities of Daily Living and IADL's Prior pt able to do all his ADL's on his own. Pt's mother helps pt to be sure to fill his meds and pay his bills. Social History Household Members family Living Arrangements House Number of Stairs To Enter/Railing? pt stays on main level of the house has 3 steps with R rail ascending from the front of the house 4 steps with R rail ascending from the garage Home Environment Standard Height Toilet,Walk in Shower Home Equipment Front Wheel Walker,Four Wheel Walker,Straight Cane Additional Social History Comment pt stated that his parents will be able to assist him M2 OT-IP Current Condition Start: 08/02/21 11:54 Freq: Status: Active Protocol: Document 08/02/21 08:55 [facility] (Rec: 08/02/21 12:10 [facility] [id number]) Occupational Therapy Current Condition Current Condition Evaluation Date 08/02/21 Treatment Diagnosis S/P sigmoidectomy and lower anterior resection, acute seizure Diagnosis Onset Date 07/26/21 Post Operative Precautions Abdominal Surgery Precautions Log Roll,Lifting Restrictions, Gait Belt above Incisional Area Other Precautions Seizure, Pt's mother requests that pt wears a helmet when he is up on his feet. M3 OT- IP Subjective and Pain Start: 08/02/21 11:54 Freq: Status: Active Protocol: Document 08/02/21 08:55 [facility] (Rec: 08/02/21 12:10 [facility] [id number]) OT- Subjective Occupational Therapy Visit Type Type Initial Evaluation Visit Start Time 08:55 Visit Stop Time 09:38 Total Visit Minutes 43 Occupational Therapy Visit Comments Patient Comments Pt agreed to get up for OT eval. OT Pain Assessment Pain When Pain Assessed At Rest Pain Present Pain Present Denied Pain M4 OT- IP ADL's Start: 08/02/21 11:54 Freq: Status: Active Protocol: Document 08/02/21 08:55 [facility] (Rec: 08/02/21 12:10 [facility] [id number]) OT [id number] Comments OT Self-Feeding Comments Pt on clear liquid diet at this time. OT ADL-Grooming Comments OT Grooming Comments Pt able to was his face after set-up of wash cloth. OT ADL-Oral Care Comments Oral Care Comments Pt states to do later. OT ADL-Dressing General Eval Lower Body Dressing Ability Maximum Assistance Comments OT Dressing Comments Able to show, issued and go over LB dressing for pt's needs. Pt will continue to benefit from continued practice. OT ADL-Toileting Comments OT Toileting Comments Not performed. OT ADL-Bathing Comments OT Bathing Comments Not performed. Pt will benefit form a shower chair versus tub bench at home in addition to a HHSP. M5 OT- IP IADL's Start: 08/02/21 11:54 Freq: Status: Active Protocol: Document 08/02/21 08:55 [facility] (Rec: 08/02/21 12:10 [facility] [id number]) OT-Instrumental Activities of Daily Living Home Safety Awareness Home Safety Comments Pt' lives with his parents who are able to provide supervision for pt's safety and problem solving needs. Medication Management Medication Management Caregiver Provides Supervision Money Management Money Management Caregiver Provides Assistance Meal Preparation Meal Preparation Caregiver Provides Assist Personal Assistant Personal Assistant Caregiver Provides Assist M6 OT- IP Functional Cognition Start: 08/02/21 11:54 Freq: Status: Active Protocol: Document 08/02/21 08:55 [facility] (Rec: 08/02/21 12:10 [facility] [id number]) Cognitive Factors Limiting Selfcare Function Cognitive Ability Level of Alertness Alert Patient Orientation Name,Place,Situation Attention Span Ability Capable of Focused Attention, Capable of Sustained Attention Cognitive Comments Cognitive Assessment Comments Pt cooperative and needing simple commands to follow for ADl and mobility needs. OT- Vision and Hearing OT- Hearing Assessment OT- Hearing Assessment WFL OT- Vision Assessment Visual Acuity Glasses All The Time M7 OT- IP Mobility and Balance Start: 08/02/21 11:54 Freq: Status: Active Protocol: Document 08/02/21 08:55 [facility] (Rec: 08/02/21 12:10 [facility] [id number]) OT- Bed Mobility Assessment Supine to Sit Supine to Sit Assist Minimal Assistance OT-Transfer Assessment Sit to and From Stand Sit to and from Stand Minimal Assistance Transfers Transfer Ability Minimal Assistance Technique Transfer Destination Bed,Chair Transfer Technique Stand Step Pivot Devices Transfer Assistive Devices Gait Belt,Front Wheeled Walker Comments Mobility Comments ADELINE to get from side lying to upright and ADELINE to transfer for balance to the recliner with FWW. OT- Balance Assessment Sitting Balance and Reactions Static Sitting Balance Ability Good Dynamic Sitting Balance Ability Fair Standing Balance and Reactions Static Standing Balance Ability Fair M8 OT- IP Objective Assessments Start: 08/02/21 11:54 Freq: Status: Active Protocol: Document 08/02/21 08:55 [facility] (Rec: 08/02/21 12:10 [facility] [id number]) OT Gross Range of Motion Upper Extremity Range of Motion Assessment Within Functional Limits OT Strength Comments Strength Comments NT due to sx. M9 OT- IP Assessment and Plan Start: 08/02/21 11:54 Freq: Status: Active Protocol: Document 08/02/21 08:55 [facility] (Rec: 08/02/21 12:10 [facility] [id number]) OT Summary Assessment and Plan Potential Rehabilitation Potential Good Analytic Complexity at Evaluation Moderate Summary OT Impairments Balance,Functional Cognition, Functional Mobility,Grooming, Dressing,Toileting,Bathing, Toilet Transfers,Shower Transfers,Activity Tolerance Progress Towards Goals Progressing Toward Goals,Slow Progress due to Medical Issues ,Slow Progress due to Cognition Assessment Summary Pt main barriers are steps, decreased activity tolerance , and now needing one person assist for needs. OT issued pt LB dressing equipment to help increase his ease/independence for LB dressing needs. Pt has a very supportive parents that will assist pt as needed , but his mom unable to provide any lifting assist. Pt to go home when medically stable. Goals Grooming Goal Independent Dressing Goal Independent Toileting Goal Independent Bathing Goal Minimal Assistance Toilet Transfer Goal Independent Shower Transfer Goal Independent Days to Meet Goals 10 Frequency of Treatment Frequency Of Treatment Once a Day Treatment Plan OT Treatment Plan ADL Training,Functional Cognition Training,Functional Mobility,Patient/Family Education,Discharge Planning Other Treatment Recommendations and Next Stand at sink with FWW for Treatment Focus grooming needs. Discharge Recommendations OT Discharge Recommendations Home with 16/04 Assist Available Home Equipment Needs shower chair versus tub bench, hand held shower spray Transportation Needs at Discharge Private Vehicle
[2021-08-02] MEDS: SODIUM CHLORIDE IV ×2 (09:29→22:18)
[2021-08-02] MEDS: FOSPHENYTOIN PE IV ×2 (09:29→22:18)
--- NOTE | 2021-08-02 10:41 | PM.PN.1 ---
Subjective Subjective Date Patient Seen: 08/02/21 Time Patient Seen: 08:00 Interval history: He has slight abdominal pain. Nausea improved. He has had a bowel movement and is passing gas. His diet has been advanced by surgery this AM to clears. Exam Vital Signs (past 8 hours): - 08/02/21 04:00 08/02/21 07:45 Temperature 98.0 F 98.3 F Pulse Rate 103 H 103 H Respiratory Rate 19 16 Blood Pressure 148/91 H 141/78 H Pulse Oximetry 100 99 Oxygen Delivery Method Room Air Oxygen Flow Rate 2 Narrative Exam Narrative: GEN: alert, no acute distress ABD: soft, distended, drain in place Objective Labs Result Diagrams: 08/02/21 04:40 08/02/21 04:40 Labs: Laboratory Results - last 24 hr 08/01/21 08/01/21 08/02/21 11:30 11:30 04:40 WBC 10.5 7.6 RBC 4.67 4.36 L Hgb 15.0 13.9 Hct 44.8 42.2 MCV 95.9 96.8 MCH 32.2 31.9 MCHC 33.6 33.0 RDW 13.0 12.8 Plt Count 360 333 Neut % (Auto) 77.7 H 66.9 Lymph % (Auto) 5.4 L 10.1 L [place] % (Auto) 16.4 H 20.7 H Eos % (Auto) 0.3 L 1.8 L Baso % (Auto) 0.2 0.5 Neut # (Auto) 8200 H 5100 Lymph # (Auto) 600 L 800 L [place] # (Auto) 1700 H 1600 H Eos # (Auto) 0 100 Baso # (Auto) 0 0 Sodium 138 Potassium 4.2 Chloride 104 Carbon Dioxide 25 BUN 27 H Creatinine 2.41 H Estimated GFR 28.7 L BUN/Creatinine Ratio 11.2 Glucose 145 H Calcium 8.6 Phosphorus 6.0 H D Magnesium 2.1 08/02/21 04:40 WBC RBC Hgb Hct MCV MCH MCHC RDW Plt Count Neut % (Auto) Lymph % (Auto) [place] % (Auto) Eos % (Auto) Baso % (Auto) Neut # (Auto) Lymph # (Auto) [place] # (Auto) Eos # (Auto) Baso # (Auto) Sodium 141 Potassium 3.7 Chloride 106 Carbon Dioxide 28 BUN 20 Creatinine 0.84 Estimated GFR > 60.0 BUN/Creatinine Ratio 23.8 H Glucose 140 H Calcium 8.1 L Phosphorus 3.3 D Magnesium 2.0 PFSH Medical History Hemorrhoid (~02/15/14) Postop check Seizure Static encephalopathy Surgical History Hx of colonoscopy Hx of oral surgery Family History Father CAD (coronary artery disease) Hypertension Diabetes mellitus Cancer Mother CAD (coronary artery disease) Hypertension Stroke Social History marital status: household members: family Smoking Status: Never smoker alcohol intake: never substance use type: does not use Assessment & Plan Assessment & Plan narrative: Mr. Jha is a 50M with developmental delay, seizure disorder, and colon cancer s/p colectomy who had witnessed seizure like activity. 1. Acute seizure, seizure disorder -patient has a difficult to control seizure disorder, that has had breakthrough seizures despite being on four anti-epileptics -has had zonisamide and primidone held due to being NPO possibly precipitating withdrawal seizures -lytes, magnesium normal -stopped scopolamine -continue keppra and fosphenytoin -restart zonisamide and primidone as tolerating clears -recommend keeping on the IV anti epileptics until patient is definitely resolving his ileus -use IV Ativan if needed 2. Colon cancer s/p colectomy with post-operative ileus -primary management per surgical team 3.? Postop urinary retention with UTI -failed trial of Pulliam removal and Pulliam reinserted on August 01 -urine culture from July 31 pending, on zosyn Time Spent With Patient Critical Care time: I spent a total of [] minutes of critical care time on this patient's care today; this time is exclusive of procedural time. Quality VTE Deep Vein Thrombosis/Pulmonary Embolism Present on Admission: No
--- NOTE | 2021-08-02 11:42 | PT.IPTN ---
Current Diagnoses Malignant neoplasm of colon, unspecified (07/26/21) Unspecified convulsions (07/26/21) Encounter for follow-up examination after completed treatment for conditions other than malignant neoplasm (07/26/21) Surgery Performed Operation Date: 07/26/21 07:45 Actual Procedures p Laparoscopically Assisted Colectomy(Not Applicable) - Harjinder Hannah MD Physical Therapy Treatment Note M2 PT-IP Current Condition Start: 07/27/21 12:31 Freq: NEEDED Status: Active Protocol: Document 07/28/21 12:00 [facility] (Rec: 07/28/21 14:14 AB [id number]) Physical Therapy Current Condition Current Condition Evaluation Date 07/28/21 Treatment Diagnosis colon CA s/p colectomy; difficulty in walking Onset Date 07/26/21 M3 PT-IP Subjective Start: 07/27/21 12:31 Freq: NEEDED Status: Active Protocol: Document 08/02/21 11:33 [facility] (Rec: 08/02/21 11:41 [id number]) Subjective Physical Therapy Visit Type Type Treatment Note Visit Start Time 10:50 Visit Stop Time 11:15 Total Visit Minutes 25 Notes upgraded to liquid diet today. Number of [employer] Visits 0 Physical Therapy Visit Comments Patient Comments agreeable to do PT, pts mother present during treatment M4 PT-IP Mobility and Gait Start: 07/27/21 12:31 Freq: NEEDED Status: Active Protocol: Document 08/02/21 11:33 [facility] (Rec: 08/02/21 11:41 [id number]) PT-Transfer Assessment Sit to and From Stand Sit to and from Stand Contact Guard Assistance,1 Person Assistance,Use of Upper Extremities Equipment Transfer Assistive Device Gait Belt,Front Wheeled Walker Transfers Transfer Destination Chair Transfer Ability Level of Assist Contact Guard Assistance,1 Person Assistance,Use of Upper Extremities Comments Mobility Comments Pt in chair upon PT arrival and stated his abdomen feels better and less bloated. He agreed to mobilize with PT. He was able to stand up with UE pushed off from armrests. He then walked outside of his room with FWW, CGA, helmet for 180ft. He tends to slow down and needed to manuever his FWW slowly during turns but no LOB. No increase in discomfort noted. He then returned to bedside chair from sink counter safely without FWW. Call light placed within reach . Gait Assessment Gait Gait Assistance Required: Contact Guard Assist,1 Person Assist Distance (Feet) 180 Assistive Devices Assistive Device Gait Belt,Front Wheeled Walker Orthotic/Prosthetic Devices or Brace: No Gait Deviations General Gait Pattern Decreased Stride Length, Decreased Feet Clearance Factors Limiting Gait Function Factors Limiting Gait Function Decreased Activity Tolerance, Decreased Strength,Poor Safety Awareness Comments Gait Comments refer to mobility section PT-Balance Assessment Sitting Balance and Reactions Static Sitting Balance Ability Good Dynamic Sitting Balance Ability Good Standing Balance and Reactions Static Standing Balance Ability Good Dynamic Standing Balance Ability Good Device Used FWW M5 PT-IP Objective Assessments Start: 07/27/21 12:31 Freq: NEEDED Status: Active Protocol: Document 07/28/21 12:00 [facility] (Rec: 07/28/21 14:14 AB [id number]) Orientation Orientation/Cognition Level of Alertness Alert Orientation Name,Place,Situation Language Function Ability Word Finding Difficulties Safety Awareness Decreased Safety Awareness Gross Range of Motion Lower Extremity ROM Assessment Within Functional Limits Strength Lower Extremity Strength Assessment Bilaterally Impaired Comments Strength Comments RLE: 4-/5 LLE: 3-/5 Muscle Tone Muscle Tone WNL No Other Assessments Other Other Assessments decrease motor control on LLE M6 PT-IP Treatment Start: 07/27/21 12:31 Freq: NEEDED Status: Active Protocol: Document 07/31/21 15:10 LJ (Rec: 07/31/21 15:21 LJ [id number]) Physical Therapy Treatment Education Education Provided Precautions,Safety M7 PT-IP Assessment and Plan Start: 07/27/21 12:31 Freq: NEEDED Status: Active Protocol: Document 08/02/21 11:33 [facility] (Rec: 08/02/21 11:41 HH [id number]) PT Summary Assessment and Plan Potential Rehabilitation Potential Good Status of Condition at Evaluation Evolving Summary Impairments Pain,ROM,Strength,Balance, Coordination,Sensation,Tone, Cognition,Bed Mobility, Transfers,Gait,Activity Tolerance Assessment Summary Pt shows good progress today with less discomfort in abdomen. He is somewhat unsteady during turns but no signs of LOB. He might be able to start walking without FWW for short distance. Continue to progress activity, ambulation, and strengthening to return to baseline. Goals Bed Mobility Goal Standby Assistance Transfer Goal Standby Assistance,Front Wheeled Walker Gait Goal Standby Assistance,Front Wheel Walker Gait Distance 300 Other Goals improve bed mobility, transfers SBA using fWW, ambulation using FWW SBA 150 ft 3 steps R rail ascending CGA Days to Meet Goals 10 Frequency of Treatment Frequency Of Treatment Once a Day Treatment Plan Physical Therapy Treatment Plan Bed Mobility Training,Transfer Training,Gait Training, Therapeutic Exercise,Balance Retraining,Post Op Education, Discharge Planning,Hot or Cold Pack,Neuromuscular Re-ed, Coordination Retraining,Manual Therapy Other Recommendations and Next Treatment stair training Focus gait training w/o FWW if tolerated Precautions Abdominal Surgery Precautions Log Roll,Lifting Restrictions, Gait Belt above Incisional Area Recommendations To Nursing Amount of Assist Needed 1 Person Assist Discharge Recommendations PT Discharge Recommendations Home with Assistance Transportation Needs at Discharge Wheelchair/Cabulance
[2021-08-02 11:55] VITALS: BP 142/80; PULSE 110; RESP 17; TEMP 36.9; O2SAT 99
[2021-08-02] MEDS: ZONISAMIDE 100 MG CAPSULE PO (12:11)
--- NOTE | 2021-08-02 12:46 | P.PN_ITS ---
Subjective Subjective Date Patient Seen: 08/02/21 Time Patient Seen: 12:46 Interval history: Flatus and BM overnight. No nausea, feels better today then yestereday Exam Vital Signs (past 8 hours): - 08/02/21 07:45 08/02/21 11:55 Temperature 98.3 F 98.5 F Pulse Rate 103 H 110 H Respiratory Rate 16 17 Blood Pressure 141/78 H 142/80 H Pulse Oximetry 99 99 Oxygen Delivery Method Room Air Oxygen Flow Rate 0 Narrative Exam Narrative: Gen-Adult man alert and oriented Abdomen-Soft, mild distention better then yesterday. Drain serous removed. Incision CDI reinforced lower midline with steri strips Objective Labs Result Diagrams: 08/02/21 04:40 08/02/21 04:40 Labs: Laboratory Results - last 24 hr 08/02/21 08/02/21 04:40 04:40 WBC 7.6 RBC 4.36 L Hgb 13.9 Hct 42.2 MCV 96.8 MCH 31.9 MCHC 33.0 RDW 12.8 Plt Count 333 Neut % (Auto) 66.9 Lymph % (Auto) 10.1 L [place] % (Auto) 20.7 H Eos % (Auto) 1.8 L Baso % (Auto) 0.5 Neut # (Auto) 5100 Lymph # (Auto) 800 L [place] # (Auto) 1600 H Eos # (Auto) 100 Baso # (Auto) 0 Sodium 141 Potassium 3.7 Chloride 106 Carbon Dioxide 28 BUN 20 Creatinine 0.84 Estimated GFR > 60.0 BUN/Creatinine Ratio 23.8 H Glucose 140 H Calcium 8.1 L Phosphorus 3.3 D Magnesium 2.0 PFSH Medical History Hemorrhoid (~02/15/14) Postop check Seizure Static encephalopathy Surgical History Hx of colonoscopy Hx of oral surgery Family History Father CAD (coronary artery disease) Hypertension Diabetes mellitus Cancer Mother CAD (coronary artery disease) Hypertension Stroke Social History marital status: household members: family Smoking Status: Never smoker alcohol intake: never substance use type: does not use Assessment & Plan Post-op Postoperative Procedures: Procedures Operation Date: 07/26/21 07:45 Actual Procedure Side Surgeon p Laparoscopically Assisted Colectomy Not Applicable Harjinder Hannah MD Postoperative plan narrative: 50M POD 7 sp LAR for colon cancer. Ileus resolved -Clears advance as tolerated -DC IVF once tolerating adequate PO -Keep Pulliam today for urinary retention -Continue Zosyn for UTI f/u cultures -Anticipate discharge home later this week -SCDs and pLovenox Quality VTE Deep Vein Thrombosis/Pulmonary Embolism Present on Admission: No
[2021-08-02 15:43] VITALS: BP 148/83; PULSE 86; RESP 16; TEMP 36.6; O2SAT 98
[2021-08-02 20:00] VITALS: BP 156/92; PULSE 107; RESP 16; TEMP 37; O2SAT 98
[2021-08-03] VITALS (14 sets, daily range): BP systolic 148–181; BP diastolic 75–98; PULSE 108–123; RESP 16–20; TEMP 36.6–37.8; O2SAT 90–95
[2021-08-03] MEDS: PIPERACILLIN/TAZO 3.375 GM in SODIUM CHLORIDE 0.9% 100 ML 25 ML IV ×3 (02:04→17:21)
--- NOTE | 2021-08-03 03:59 | PC.NURSE ---
Addendum entered by Aster Jha R.N. 08/03/21 04:44: Pt. experienced approx 200 ml of clear emesis. Original Note: SHIFT Report received, care assumed 1930. Pt A&Ox4. VSS, denies pain. Received a regular diet for dinner tray, ate little. Experienced increased abdominal distention afterwards. Abdomen is large, round, fairly firm. Hypoactive bowels sounds. Passed small liquid bowel movement and flatus this shift. Patient asked to shower. Did so with assistance. Abdominal dressing replaced with 2 ABD pads, medipore tape. Pt. continued to deny pain but is slightly restless in recent hours, wanting to transfer between bed and chair frequently. He is also slightly tachycardic and hypertensive.
[2021-08-03 05:15] LABS: Add Manual Diff / Slide Review NO; Basophils Absolute Auto 0 /uL (0-100); Basophils Percent Auto 0.3 % (0-2); Eosinophils Absolute Auto 100 /uL (0-450); Eosinophils Percent Auto 1.6 % (2-4); Hematocrit 38.8 % (41-53); Hemoglobin 13.3 g/dL (13.5-17.5); Lymphocytes Absolute Auto 1100 /uL (1100-4500); Lymphocytes Percent Auto 13.6 % (25-40); Mean Corpuscular HGB Conc 34.3 % (30-36); Mean Corpuscular Hemoglobin 32.8 PG (26-34); Mean Corpuscular Volume 95.6 fL (80-100); Monocytes Absolute Auto 1800 /uL (0-900); Monocytes Percent Auto 21.9 % (3-14); Neutrophils Absolute Auto 5100 /uL (1500-7000); Neutrophils Percent Auto 62.6 % (50-75); Platelet Count 353 X10^3/uL (150-400); Red Blood Cell Count 4.06 X10^6/uL (4.5-5.9); Red Cell Distribution Width 12.9 % (11.6-14.8); White Blood Cell Count 8.2 X10^3/uL (4.5-11.0)
[2021-08-03 05:22] LABS: Blood Urea Nitrogen 18 mg/dL (9-20); Calcium 8.2 mg/dL (8.4-10.2); Carbon Dioxide 30 mmol/L (22-32); Chloride 102 mmol/L (98-107); Estimated Glomerular Filt Rate > 60.0 mL/min (>60); Glucose 132 mg/dL (70-100); HEMOLYSIS < 15 (0-50); Magnesium 1.9 mg/dL (1.6-2.3); Phosphorous 2.9 mg/dL (2.5-4.5); Potassium 3.4 mmol/L (3.4-5.1); Sodium 138 mmol/L (137-145)
[2021-08-03] MEDS: METOCLOPRAMIDE 10 MG/2 ML INJ IV ×4 (06:06→23:53)
--- NOTE | 2021-08-03 08:33 | PT.IPTN ---
Current Diagnoses Malignant neoplasm of colon, unspecified (07/26/21) Unspecified convulsions (07/26/21) Encounter for follow-up examination after completed treatment for conditions other than malignant neoplasm (07/26/21) Surgery Performed Operation Date: 07/26/21 07:45 Actual Procedures p Laparoscopically Assisted Colectomy(Not Applicable) - Harjinder Hannah MD Physical Therapy Treatment Note M2 PT-IP Current Condition Start: 07/27/21 12:31 Freq: NEEDED Status: Active Protocol: Document 07/28/21 12:00 AB (Rec: 07/28/21 14:14 AB [id number]) Physical Therapy Current Condition Current Condition Evaluation Date 07/28/21 Treatment Diagnosis colon CA s/p colectomy; difficulty in walking Onset Date 07/26/21 M3 PT-IP Subjective Start: 07/27/21 12:31 Freq: NEEDED Status: Active Protocol: Document 08/03/21 08:15 [facility] (Rec: 08/03/21 10:33 [facility] [id number]) Subjective Physical Therapy Visit Type Type Treatment Note Visit Start Time 07:40 Visit Stop Time 08:10 Total Visit Minutes 30 Notes SPT participated in treatment and guarding w/PT direction Number of VACUUM WORKER Visits 0 Physical Therapy Visit Comments Patient Comments Pt agreeable to PT. Notes feeling pretty good this AM M4 PT-IP Mobility and Gait Start: 07/27/21 12:31 Freq: NEEDED Status: Active Protocol: Document 08/03/21 08:15 [facility] (Rec: 08/03/21 10:33 [facility] [id number]) PT-Bed Mobility Assessment Sit to Supine Sit to Supine Standby Assistance Scooting Scooting to Edge of Bed Standby Assistance PT-Transfer Assessment Sit to and From Stand Sit to and from Stand Contact Guard Assistance,1 Person Assistance,Use of Upper Extremities Equipment Transfer Assistive Device Gait Belt,Front Wheeled Walker Comments Mobility Comments Pt in chair upon PT arrival. Pt stood from chair CGA to FWW and felt like he needed to utilize walker when walking today. He amb about 210 ft w/ FWW and CGA. He then went up/ down steps CGA w/2 rails w/ step to gait and slow progression up/down. He was fatigued at this point so sat in WC and he mobilized himself in WC w/UEs back to room. He then amb 15ft w/FWW to bed and did sit to supine CGA w/use of rail. Pt adjusted for comfort and left w/call light in reach. Gait Assessment Gait Gait Assistance Required: Contact Guard Assist,1 Person Assist Distance (Feet) 210 Assistive Devices Assistive Device Gait Belt,Front Wheeled Walker Orthotic/Prosthetic Devices or Brace: No Gait Deviations General Gait Pattern Decreased Stride Length, Decreased Feet Clearance Factors Limiting Gait Function Factors Limiting Gait Function Decreased Activity Tolerance, Decreased Strength,Poor Safety Awareness Comments Gait Comments refer to mobility section M5 PT-IP Objective Assessments Start: 07/27/21 12:31 Freq: NEEDED Status: Active Protocol: Document 07/28/21 12:00 AB (Rec: 07/28/21 14:14 AB [id number]) Orientation Orientation/Cognition Level of Alertness Alert Orientation Name,Place,Situation Language Function Ability Word Finding Difficulties Safety Awareness Decreased Safety Awareness Gross Range of Motion Lower Extremity ROM Assessment Within Functional Limits Strength Lower Extremity Strength Assessment Bilaterally Impaired Comments Strength Comments RLE: 4-/5 LLE: 3-/5 Muscle Tone Muscle Tone WNL No Other Assessments Other Other Assessments decrease motor control on LLE M6 PT-IP Treatment Start: 07/27/21 12:31 Freq: NEEDED Status: Active Protocol: Document 07/31/21 15:10 LJ (Rec: 07/31/21 15:21 LJ [id number]) Physical Therapy Treatment Education Education Provided Precautions,Safety M7 PT-IP Assessment and Plan Start: 07/27/21 12:31 Freq: NEEDED Status: Active Protocol: Document 08/03/21 08:15 [facility] (Rec: 08/03/21 10:33 [facility] [id number]) PT Summary Assessment and Plan Summary Impairments Pain,ROM,Strength,Balance, Coordination,Sensation,Tone, Cognition,Bed Mobility, Transfers,Gait,Activity Tolerance Assessment Summary Pt did well with increased mobility today but did fatigue w/activity today and did not feel like he could walk back to the room. He idd wear his helmet per his request for gait. He did still push into walker for support as he amb. Goals Bed Mobility Goal Standby Assistance Transfer Goal Standby Assistance,Front Wheeled Walker Gait Goal Standby Assistance,Front Wheel Walker Gait Distance 300 Other Goals improve bed mobility, transfers SBA using fWW, ambulation using FWW SBA 150 ft 3 steps R rail ascending CGA Days to Meet Goals 10 Frequency of Treatment Frequency Of Treatment Once a Day Treatment Plan Physical Therapy Treatment Plan Bed Mobility Training,Transfer Training,Gait Training, Therapeutic Exercise,Balance Retraining,Post Op Education, Discharge Planning,Hot or Cold Pack,Neuromuscular Re-ed, Coordination Retraining,Manual Therapy Other Recommendations and Next Treatment stair training Focus gait training w/o FWW if tolerated Precautions Abdominal Surgery Precautions Log Roll,Lifting Restrictions, Gait Belt above Incisional Area Recommendations To Nursing Amount of Assist Needed 1 Person Assist Discharge Recommendations PT Discharge Recommendations Home with Assistance Transportation Needs at Discharge Private Vehicle
--- NOTE | 2021-08-03 09:16 | DIET.PN1 ---
Dietary Progress Note RD Note: Adjusted pts diet down from General (low fiber) to Transitional/Post-OP (low fiber) as pt had 100cc clear emesis this am. This diet will provide plenty of nutrition to support postop healing while being easier on GI tract until d/c. RD to send ONS Ensure Surgery bid to support post-op healing in full liquid formula. Ht: 177.8 cm Wt: 106.594 kg BMI: 33.7 UBW: Last BM: 08/03/21 (08/03/21 05:00) MNA: 14 Gasper Score: 18 Diet: 08/02/21 Dinner General (Regular) Diet Diet Modifications: low fiber 08/03/21 Lunch Transitional Diet, Postop Diet Modifications: low fiber, postop Nutrition Percent Meal Consumed pudding 08/02/21 13:20 Labs: RBC 4.06 X10^6/uL (4.5-5.9) L 08/03/21 04:17 Hgb 13.3 g/dL (13.5-17.5) L 08/03/21 04:17 Hct 38.8 % (41-53) L 08/03/21 04:17 Creatinine 0.72 mg/dL (0.66-1.25) 08/03/21 04:17 Nutrition Diagnosis: Severe Acute Protein Calorie Malnutrition r/t prolonged ileus aeb pt postop d8 for colon resection secondary to colon cancer, pt POs meeting <50% EER x8d on clear liquid diet, pt with increased needs for post-op healing. Interventions: 1. Sending ONS Ensure Surgery bid providing 35% kcal and 30% PRO needs, as well as adjusting diet to Transitional/PostOp for easier to assimilate diet with adequate protein, kcal, and micronutrient sources. EER: 1900kcals (18kcal/kg per obese, malnourished), 125g PRO (1.2g/kg per post op, PCM) Monitoring/Evaluations: POs, ONS tolerance Electronically Signed by: Ritu Owens 08/03/21 09:16 Clinical Dietitian [address] [address]
[2021-08-03] MEDS: levETIRAcetam 750 MG in SODIUM CHLORIDE 0.9% 100 ML 430 ML IV ×2 (09:19→22:37)
[2021-08-03] MEDS: ENOXAPARIN 40 MG/0.4 ML SYRINGE SUBCUT (09:20)
[2021-08-03] MEDS: NYSTATIN CREAM 30 GM 1 APPLIC TOP ×2 (09:20→14:57)
[2021-08-03] MEDS: PRIMIDONE 50 MG TABLET 250 MG PO ×2 (09:46→17:22)
[2021-08-03] MEDS: ZONISAMIDE 100 MG CAPSULE 200 MG PO ×2 (09:47→17:22)
[2021-08-03] MEDS: SODIUM CHLORIDE IV (09:48)
[2021-08-03] MEDS: FOSPHENYTOIN PE IV (09:48)
--- NOTE | 2021-08-03 10:34 | PM.PN.1 ---
Subjective Subjective Date Patient Seen: 08/03/21 Time Patient Seen: 08:00 Interval history: He continues to tolerate oral medications. No further seizures. Exam Vital Signs (past 8 hours): - 08/03/21 04:00 08/03/21 07:00 08/03/21 07:30 Temperature 98.8 F Pulse Rate 109 H 108 H 109 H Respiratory Rate 16 Blood Pressure 160/89 H Pulse Oximetry 94 94 94 08/03/21 09:03 Temperature 100.1 F H Pulse Rate 114 H Respiratory Rate 18 Blood Pressure 173/94 H Pulse Oximetry 90 L Oxygen Delivery Method Room Air Oxygen Flow Rate 0 Narrative Exam Narrative: GEN: alert, no acute distress ABD: soft, distended, drain now removed Objective Labs Result Diagrams: 08/03/21 04:17 08/03/21 04:17 Labs: Laboratory Results - last 24 hr 08/03/21 08/03/21 04:17 04:17 WBC 8.2 RBC 4.06 L Hgb 13.3 L Hct 38.8 L MCV 95.6 MCH 32.8 MCHC 34.3 RDW 12.9 Plt Count 353 Neut % (Auto) 62.6 Lymph % (Auto) 13.6 L [place] % (Auto) 21.9 H Eos % (Auto) 1.6 L Baso % (Auto) 0.3 Neut # (Auto) 5100 Lymph # (Auto) 1100 [place] # (Auto) 1800 H Eos # (Auto) 100 Baso # (Auto) 0 Sodium 138 Potassium 3.4 Chloride 102 Carbon Dioxide 30 BUN 18 Creatinine 0.72 Estimated GFR > 60.0 BUN/Creatinine Ratio 25.0 H Glucose 132 H Calcium 8.2 L Phosphorus 2.9 Magnesium 1.9 PFSH Medical History Hemorrhoid (~02/15/14) Postop check Seizure Static encephalopathy Surgical History Hx of colonoscopy Hx of oral surgery Family History Father CAD (coronary artery disease) Hypertension Diabetes mellitus Cancer Mother CAD (coronary artery disease) Hypertension Stroke Social History marital status: household members: family Smoking Status: Never smoker alcohol intake: never substance use type: does not use Assessment & Plan Assessment & Plan narrative: Mr. Jha is a 50M with developmental delay, seizure disorder, and colon cancer s/p colectomy who had witnessed seizure like activity. 1. Acute seizure, seizure disorder -patient has a difficult to control seizure disorder, that has had breakthrough seizures despite being on four anti-epileptics -has had zonisamide and primidone held due to being NPO possibly precipitating withdrawal seizures -lytes, magnesium normal -stopped scopolamine -continue keppra and fosphenytoin, switch to oral -restart zonisamide and primidone as tolerating clears -recommend keeping on the IV anti epileptics until patient is definitely resolving his ileus -use IV Ativan if needed 2. Colon cancer s/p colectomy with post-operative ileus -primary management per surgical team 3.? Postop urinary retention with UTI -failed trial of Pulliam removal and Pulliam reinserted on August 01 -urine culture from July 31 pending, on zosyn Patient seizures have resolved, his ileus is improved, and he is taking all his home medications for seizure. Medicine will sign off now. Please consult if any further questions. Time Spent With Patient Critical Care time: I spent a total of [] minutes of critical care time on this patient's care today; this time is exclusive of procedural time. Quality VTE Deep Vein Thrombosis/Pulmonary Embolism Present on Admission: No
[2021-08-03] MEDS: ZONISAMIDE 100 MG CAPSULE PO (12:50)
--- NOTE | 2021-08-03 14:19 | PM.PNPO.1 ---
Subjective Subjective Date Patient Seen: 08/03/21 Time Patient Seen: 14:24 Interval history: Tolerated small volumes of clear liquid yesterday. Minimal nausea and appetite. Feels bloated again today. Exam Vital Signs (past 8 hours): - 08/03/21 07:00 08/03/21 07:30 08/03/21 09:03 Temperature 100.1 F H Pulse Rate 108 H 109 H 114 H Respiratory Rate 18 Blood Pressure 173/94 H Pulse Oximetry 94 94 90 L 08/03/21 13:12 08/03/21 13:51 Temperature 97.9 F Pulse Rate 120 H 120 H Respiratory Rate 20 Blood Pressure 181/98 H 165/93 H Pulse Oximetry 92 93 Oxygen Delivery Method Room Air Oxygen Flow Rate 2 Narrative Exam Narrative: Gen-Adult male alert and oriented Abdomen-Compressible distended appropriately tender to palpation. Incision CDI Objective Labs Result Diagrams: 08/03/21 04:17 08/03/21 04:17 Labs: Laboratory Results - last 24 hr 08/03/21 08/03/21 04:17 04:17 WBC 8.2 RBC 4.06 L Hgb 13.3 L Hct 38.8 L MCV 95.6 MCH 32.8 MCHC 34.3 RDW 12.9 Plt Count 353 Neut % (Auto) 62.6 Lymph % (Auto) 13.6 L [place] % (Auto) 21.9 H Eos % (Auto) 1.6 L Baso % (Auto) 0.3 Neut # (Auto) 5100 Lymph # (Auto) 1100 [place] # (Auto) 1800 H Eos # (Auto) 100 Baso # (Auto) 0 Sodium 138 Potassium 3.4 Chloride 102 Carbon Dioxide 30 BUN 18 Creatinine 0.72 Estimated GFR > 60.0 BUN/Creatinine Ratio 25.0 H Glucose 132 H Calcium 8.2 L Phosphorus 2.9 Magnesium 1.9 PFSH Medical History Hemorrhoid (~02/15/14) Postop check Seizure Static encephalopathy Surgical History Hx of colonoscopy Hx of oral surgery Family History Father CAD (coronary artery disease) Hypertension Diabetes mellitus Cancer Mother CAD (coronary artery disease) Hypertension Stroke Social History marital status: household members: family Smoking Status: Never smoker alcohol intake: never substance use type: does not use Assessment & Plan Post-op Postoperative Procedures: Procedures Operation Date: 07/26/21 07:45 Actual Procedure Side Surgeon p Laparoscopically Assisted Colectomy Not Applicable Harjinder Hannah MD Postoperative status narrative: -Postoperative ileus-slowly improving. Tolerating sips of clears having bowel movements but remains distended and with minimal appetite. OK for full liquids as tolerates -Pathology discussed with patient and mother and potential need for adjuvant chemotherapy -OOB ambulate -SCDs and pLovenox -Pulliam for retention Quality VTE Deep Vein Thrombosis/Pulmonary Embolism Present on Admission: No
--- NOTE | 2021-08-03 14:33 | OT.IP.TRT ---
Current Diagnoses Malignant neoplasm of colon, unspecified (07/26/21) Unspecified convulsions (07/26/21) Encounter for follow-up examination after completed treatment for conditions other than malignant neoplasm (07/26/21) Surgery Performed Operation Date: 07/26/21 07:45 Actual Procedures p Laparoscopically Assisted Colectomy(Not Applicable) - Harjinder Hannah MD Occupational Therapy Treatment Note M2 OT-IP Current Condition Start: 08/02/21 11:54 Freq: Status: Active Protocol: Document 08/02/21 08:55 [facility] (Rec: 08/02/21 12:10 [facility] [id number]) Occupational Therapy Current Condition Current Condition Evaluation Date 08/02/21 Treatment Diagnosis S/P sigmoidectomy and lower anterior resection, acute seizure Diagnosis Onset Date 07/26/21 Post Operative Precautions Abdominal Surgery Precautions Log Roll,Lifting Restrictions, Gait Belt above Incisional Area Other Precautions Seizure, Pt's mother requests that pt wears a helmet when he is up on his feet. M3 OT- IP Subjective and Pain Start: 08/02/21 11:54 Freq: Status: Active Protocol: Document 08/03/21 14:31 [facility] (Rec: 08/03/21 14:40 [facility] [id number]) OT- Subjective Occupational Therapy Visit Type Type Treatment Note Visit Start Time 14:24 Visit Stop Time 14:32 Total Visit Minutes 8 Occupational Therapy Visit Comments Patient Comments Able to talk to pt and his mother regrading OT needs. Patient/Caregiver Goals To go home. M4 OT- IP ADL's Start: 08/02/21 11:54 Freq: Status: Active Protocol: Document 08/03/21 14:31 [facility] (Rec: 08/03/21 14:40 [facility] [id number]) OT NDV-Uvvm-Ppedouj Comments OT Self-Feeding Comments Not at meal time. OT ADL-Dressing Comments OT Dressing Comments Able to go over LB dressing equipment with pt and his mother and has been able to use them to assist for his dressing needs. OT ADL-Bathing Comments OT Bathing Comments Spoke at length of getting a shower chair for pt to use in the shower. M5 OT- IP IADL's Start: 08/02/21 11:54 Freq: Status: Active Protocol: Document 08/02/21 08:55 [facility] (Rec: 08/02/21 12:10 [facility] [id number]) OT-Instrumental Activities of Daily Living Home Safety Awareness Home Safety Comments Pt' lives with his parents who are able to provide superivison for pt's safety and problem solving needs. Medication Management Medication Management Caregiver Provides Supervision Money Management Money Management Caregiver Provides Assistance Meal Preparation Meal Preparation Caregiver Provides Assist Cold Header Cold Header Caregiver Provides Assist M6 OT- IP Functional Cognition Start: 08/02/21 11:54 Freq: Status: Active Protocol: Document 08/03/21 14:31 [facility] (Rec: 08/03/21 14:40 [facility] [id number]) Cognitive Factors Limiting Selfcare Function Cognitive Comments Cognitive Assessment Comments Pt cooperative and pleasant while in the room. M9 OT- IP Assessment and Plan Start: 08/02/21 11:54 Freq: Status: Active Protocol: Document 08/03/21 14:31 [facility] (Rec: 08/03/21 14:40 [facility] [id number]) OT Summary Assessment and Plan Potential Rehabilitation Potential Good Analytic Complexity at Evaluation Moderate Summary OT Impairments Balance,Functional Cognition, Functional Mobility,Grooming, Dressing,Toileting,Bathing, Toilet Transfers,Shower Transfers,Activity Tolerance Progress Towards Goals Progressing Toward Goals Assessment Summary Able to talk to pt and his mother and both feel they have no further questions or needs for OT at this time. Pt to continue to have PT and nursing to assist as needed. Therefore discharge pt for OT services at this time.
[2021-08-03] MEDS: METOPROLOL TARTRATE 5 MG/5 ML INJ IV ×2 (14:49→20:12)
[2021-08-03] MEDS: POTASSIUM CHLORIDE IN WATER 10 MEQ/100 ML PIGGYBACK 100 MEQ IV ×6 (14:50→23:52)
--- NOTE | 2021-08-03 15:08 | CM.DPC ---
DCP Cont: Discussed patient during team rounds. He did have some emesis today and some abdominal bloating. He does not have NG tube. P: DCP to continue to follow. Plan is for patient to return home as soon as he is deemed medically stable and is able to tolerate diet. Annabella Reno RN/Housecalls Nurse
[2021-08-03] MEDS: ONDANSETRON 4 MG/2 ML INJ IV (17:46)
[2021-08-03] MEDS: levETIRAcetam 250 MG TABLET 1000 MG PO (21:09)
--- NOTE | 2021-08-03 22:10 | PC.NURSE ---
14F NGT inserted in right nare, pt. vomited during insertion some on the bed linen, 2300 ml inside emesis bag plus 2400 ml in the wall canister with a total of 4700 ml bilious drainage and emesis.
[2021-08-03] MEDS: PHENYTOIN 100 MG in SODIUM CHLORIDE 0.9% 100 ML 102 ML IV (23:19)
[2021-08-04] VITALS (25 sets, daily range): BP systolic 114–141; BP diastolic 71–86; PULSE 95–116; RESP 14–29; TEMP 36.7–37.8; O2SAT 90–95
[2021-08-04] MEDS: LORazepam 2 MG/ML INJ 1 MG IV (01:08)
[2021-08-04] MEDS: PIPERACILLIN/TAZO 3.375 GM in SODIUM CHLORIDE 0.9% 100 ML 25 ML IV ×2 (01:09→09:47)
--- NOTE | 2021-08-04 01:15 | PC.NURSE ---
Pt. had a seizure which lasted for about 1 min. starts and stop on each own, Dr. Beck notified and order received to administer Ativan. Pt. now post ictal laying on his left side.
[2021-08-04] MEDS: METOPROLOL TARTRATE 5 MG/5 ML INJ IV ×4 (01:38→19:46)
[2021-08-04 05:13] LABS: BUN Creatinine Ratio 24.7 (6-22); Blood Urea Nitrogen 19 mg/dL (9-20); Carbon Dioxide 32 mmol/L (22-32); Chloride 100 mmol/L (98-107); Estimated Glomerular Filt Rate > 60.0 mL/min (>60); Glucose 134 mg/dL (70-100); HEMOLYSIS < 15 (0-50); Potassium 3.5 mmol/L (3.4-5.1); Sodium 137 mmol/L (137-145)
[2021-08-04 05:19] LABS: Add Manual Diff / Slide Review NO; Basophils Absolute Auto 0 /uL (0-100); Basophils Percent Auto 0.2 % (0-2); Eosinophils Absolute Auto 100 /uL (0-450); Eosinophils Percent Auto 0.6 % (2-4); Hematocrit 36.7 % (41-53); Hemoglobin 12.5 g/dL (13.5-17.5); Lymphocytes Absolute Auto 1500 /uL (1100-4500); Mean Corpuscular HGB Conc 34.1 % (30-36); Mean Corpuscular Hemoglobin 32.5 PG (26-34); Mean Corpuscular Volume 95.4 fL (80-100); Monocytes Absolute Auto 1800 /uL (0-900); Monocytes Percent Auto 17.6 % (3-14); Neutrophils Absolute Auto 6800 /uL (1500-7000); Neutrophils Percent Auto 66.6 % (50-75); Platelet Count 352 X10^3/uL (150-400); Red Blood Cell Count 3.85 X10^6/uL (4.5-5.9); Red Cell Distribution Width 12.5 % (11.6-14.8); White Blood Cell Count 10.2 X10^3/uL (4.5-11.0)
[2021-08-04] MEDS: METOCLOPRAMIDE 10 MG/2 ML INJ IV ×4 (05:39→23:50)
--- NOTE | 2021-08-04 08:34 | DI.CT.S_ITS ---
PROCEDURE: CT ABDOMEN PELVIS W CON INDICATIONS: post colectomy ileus TECHNIQUE: After the administration of oral and intravenous contrast, axial sections were acquired from the lung bases to the pubic symphysis. Coronal and sagittal reformats were performed. For radiation dose reduction, the following was used: automated exposure control, adjustment of mA and/or kV according to patient size. COMPARISON:[facility], CT, CT CHEST ABD PEL W CON, 06/23/2021, 10:57. FINDINGS: ABDOMEN: Lung bases: Scattered mild atelectasis and or low-grade aspiration. No focal consolidation. Heart: Mildly enlarged. No pericardial effusion. Liver: Normal. Gallbladder: Mildly distended otherwise unremarkable Bile ducts: Normal. Pancreas: Normal. Spleen: Normal. Adrenals: 3.1 cm left adrenal nodule measuring 37 Hounsfield units, technically indeterminate. Right adrenal gland unremarkable. Kidneys and Ureters: Normal. Stomach and duodenum: Enteric tube is seen with the tip in the fundus of the stomach Bowel: Postsurgical changes related to reported colectomy. There are numerous diffuse dilated small bowel loops . There are some decompressed bowel loops seen in the central pelvis although the exact transition point is technically unclear. It may be present at the midline abdomen, at the level of the anterior superior iliac spine. There are numerous scattered air-fluid levels. Other: Few scattered bubbles of free air probably related to recent surgery. There is mild ascites in the pelvis and perisplenic location. Abdominal nodes: Normal. Aorta and IVC: Normal in size. Ventral wall: Postsurgical changes PELVIS: Bladder and reproductive: Decompressed and a Pulliam catheter is present. Inguinal region: Tiny fat containing inguinal hernias. Pelvic nodes: Normal. Bones: No suspicious bony lesions. No vertebral body compression fractures. Diffuse spondylitic changes and facet arthropathy. IMPRESSION: Numerous dilated bowel loops in keeping with ileus versus developing bowel obstruction. Some decompressed bowel loops present in the central pelvis although an exact transition point is not well visualized, although may be present in the midline pelvis at the level of the anterior superior iliac spine. Distal bowel loops appear relatively decompressed as well from the level of the distal surgical anastomosis to the left upper quadrant. Dictated by: Corey Dewitt M.D. on 08/04/2021 at 11:15 Approved by: Corey Dewitt M.D. on 08/04/2021 at 11:25
[2021-08-04] MEDS: ENOXAPARIN 40 MG/0.4 ML SYRINGE SUBCUT (09:43)
[2021-08-04] MEDS: POTASSIUM CHLORIDE IN WATER 10 MEQ/100 ML PIGGYBACK 100 MEQ IV ×4 (09:43→16:31)
[2021-08-04] MEDS: levETIRAcetam 1,000 MG in SODIUM CHLORIDE 0.9% 100 ML 440 ML IV ×3 (09:44→23:50)
[2021-08-04] MEDS: NYSTATIN CREAM 30 GM 1 APPLIC TOP ×3 (11:20→21:06)
[2021-08-04] MEDS: FOSPHENYTOIN IV ×2 (11:21→21:05)
[2021-08-04] MEDS: SODIUM CHLORIDE 0.9% IV ×2 (11:21→21:05)
--- NOTE | 2021-08-04 12:46 | DI.RAD.S_ITS ---
PROCEDURE: XR CHEST FOR PICC 1V INDICATIONS: tpn and iv access COMPARISON: [facility], CR, XR CHEST 1V, 07/29/2021, 9:04. FINDINGS: PICC was placed by the intravenous therapy team from the left side. Fluoroscopic spot film demonstrates the tip of PICC projecting to the area of lower SVC. Enteric tube is not well visualized IMPRESSION: Tip of PICC projects to the area of lower SVC. Dictated by: Corey Dewitt M.D. on 08/04/2021 at 14:54 Approved by: Corey Dewitt M.D. on 08/04/2021 at 14:55
--- NOTE | 2021-08-04 13:16 | PM.PNPO.1 ---
Subjective Subjective Date Patient Seen: 08/04/21 Time Patient Seen: 13:56 Interval history: Seizure activity last night. NGT placed for persistent ileus 2 L output. Feels much better this AM then yesterday. +Flatus and small BM Exam Vital Signs (past 8 hours): - 08/04/21 09:00 08/04/21 12:30 Temperature 99.7 F H 98.1 F Pulse Rate 109 H 116 H Respiratory Rate 16 17 Blood Pressure 124/79 115/75 Pulse Oximetry 94 93 Oxygen Delivery Method Nasal Cannula Oxygen Flow Rate 2 Narrative Exam Narrative: Gen-Adult male no acute distress Abdomen-Soft, moderately distended. Incision CDI Objective Labs Result Diagrams: 08/04/21 04:25 08/04/21 04:25 Labs: Laboratory Results - last 24 hr 08/04/21 08/04/21 04:25 04:25 WBC 10.2 RBC 3.85 L Hgb 12.5 L Hct 36.7 L MCV 95.4 MCH 32.5 MCHC 34.1 RDW 12.5 Plt Count 352 Neut % (Auto) 66.6 Lymph % (Auto) 15.0 L [place] % (Auto) 17.6 H Eos % (Auto) 0.6 L Baso % (Auto) 0.2 Neut # (Auto) 6800 Lymph # (Auto) 1500 [place] # (Auto) 1800 H Eos # (Auto) 100 Baso # (Auto) 0 Sodium 137 Potassium 3.5 Chloride 100 Carbon Dioxide 32 BUN 19 Creatinine 0.77 Estimated GFR > 60.0 BUN/Creatinine Ratio 24.7 H Glucose 134 H Calcium 8.0 L Phosphorus 3.0 Magnesium 2.0 PFSH Medical History Hemorrhoid (~02/15/14) Postop check Seizure Static encephalopathy Surgical History Hx of colonoscopy Hx of oral surgery Family History Father CAD (coronary artery disease) Hypertension Diabetes mellitus Cancer Mother CAD (coronary artery disease) Hypertension Stroke Social History marital status: household members: family Smoking Status: Never smoker alcohol intake: never substance use type: does not use Assessment & Plan Post-op Postoperative Procedures: Procedures Operation Date: 07/26/21 07:45 Actual Procedure Side Surgeon p Laparoscopically Assisted Colectomy Not Applicable Harjinder Hannah MD Postoperative status narrative: 51M POD 9 sp LAR persistent ileus #Ileus-CT A/P reviewed ileus no abscess or evidence of leak. Continue NGT. Will start TPN. I suspect that his anti-seizure medication is contributing to the prolonged ileus. Will continue with conservative management #UTI-Changed to Ciprofloxacin per cultures total of 5 days treatment. Continue shay for retention #VTE prophylaxis-SCDs and lovenox Quality VTE Deep Vein Thrombosis/Pulmonary Embolism Present on Admission: No
--- NOTE | 2021-08-04 14:50 | PM.PN.1 ---
Subjective Subjective Date Patient Seen: 08/04/21 Time Patient Seen: 08:45 Interval history: Seizure overnight. Medications adjusted. NG tube placed overnight, felt improved this AM without current nausea or vomiting. Abdomen felt sore. Exam Vital Signs (past 8 hours): - 08/04/21 09:00 08/04/21 12:30 Temperature 99.7 F H 98.1 F Pulse Rate 109 H 116 H Respiratory Rate 16 17 Blood Pressure 124/79 115/75 Pulse Oximetry 94 93 Oxygen Delivery Method Nasal Cannula Oxygen Flow Rate 2 Narrative Exam Narrative: GEN: alert, no acute distress ABD: soft, mildly distended,? Objective Labs Result Diagrams: 08/04/21 04:25 08/04/21 04:25 Labs: Laboratory Results - last 24 hr 08/04/21 08/04/21 04:25 04:25 WBC 10.2 RBC 3.85 L Hgb 12.5 L Hct 36.7 L MCV 95.4 MCH 32.5 MCHC 34.1 RDW 12.5 Plt Count 352 Neut % (Auto) 66.6 Lymph % (Auto) 15.0 L [place] % (Auto) 17.6 H Eos % (Auto) 0.6 L Baso % (Auto) 0.2 Neut # (Auto) 6800 Lymph # (Auto) 1500 [place] # (Auto) 1800 H Eos # (Auto) 100 Baso # (Auto) 0 Sodium 137 Potassium 3.5 Chloride 100 Carbon Dioxide 32 BUN 19 Creatinine 0.77 Estimated GFR > 60.0 BUN/Creatinine Ratio 24.7 H Glucose 134 H Calcium 8.0 L Phosphorus 3.0 Magnesium 2.0 PFSH Medical History Hemorrhoid (~02/15/14) Postop check Seizure Static encephalopathy Surgical History Hx of colonoscopy Hx of oral surgery Family History Father CAD (coronary artery disease) Hypertension Diabetes mellitus Cancer Mother CAD (coronary artery disease) Hypertension Stroke Social History marital status: household members: family Smoking Status: Never smoker alcohol intake: never substance use type: does not use Assessment & Plan Assessment & Plan narrative: Mr. Jha is a 50M with developmental delay, seizure disorder, and colon cancer s/p colectomy who had witnessed seizure like activity. 1. Acute seizure, seizure disorder -patient has a difficult to control seizure disorder, that has had breakthrough seizures despite being on four anti-epileptics -has had zonisamide and primidone held due to being NPO possibly precipitating withdrawal seizures -lytes, magnesium normal -stopped scopolamine -continue keppra and fosphenytoin, switch to oral when feasible. For now continue IV keppra 1000 mg TID per home dosing. -restart zonisamide and primidone as tolerating clears -use IV Ativan if needed 2. Colon cancer s/p colectomy with post-operative ileus -primary management per surgical team 3.? Postop urinary retention with UTI -failed trial of Pulliam removal and Pulliam reinserted on August 01 -urine culture from July 31 pending, on zosyn Medicine will continue to follow given repeat seizure activity. Time Spent With Patient Critical Care time: I spent a total of [] minutes of critical care time on this patient's care today; this time is exclusive of procedural time. Quality VTE Deep Vein Thrombosis/Pulmonary Embolism Present on Admission: No
--- NOTE | 2021-08-04 15:17 | PT.IPTN ---
Current Diagnoses Malignant neoplasm of colon, unspecified (07/26/21) Unspecified convulsions (07/26/21) Encounter for follow-up examination after completed treatment for conditions other than malignant neoplasm (07/26/21) Surgery Performed Operation Date: 07/26/21 07:45 Actual Procedures p Laparoscopically Assisted Colectomy(Not Applicable) - Harjinder Hannah MD Physical Therapy Treatment Note M2 PT-IP Current Condition Start: 07/27/21 12:31 Freq: NEEDED Status: Active Protocol: Document 07/28/21 12:00 AB (Rec: 07/28/21 14:14 AB [email or web address]) Physical Therapy Current Condition Current Condition Evaluation Date 07/28/21 Treatment Diagnosis colon CA s/p colectomy; difficulty in walking Onset Date 07/26/21 M3 PT-IP Subjective Start: 07/27/21 12:31 Freq: NEEDED Status: Active Protocol: Document 08/04/21 15:06 (Rec: 08/04/21 15:17 [id number]) Subjective Physical Therapy Visit Type Type Treatment Note Visit Start Time 14:35 Visit Stop Time 14:52 Total Visit Minutes 17 Notes mother attended session Per EMR, Seizure overnight. NG tube placed overnight. PICC line also in place Number of LABOR SUPERVISOR Visits 0 Physical Therapy Visit Comments Patient Comments Pt agreeable to PT even though he just returned from a walk with nursings. M4 PT-IP Mobility and Gait Start: 07/27/21 12:31 Freq: NEEDED Status: Active Protocol: Document 08/04/21 15:06 (Rec: 08/04/21 15:17 [id number]) PT-Transfer Assessment Sit to and From Stand Sit to and from Stand Contact Guard Assistance,1 Person Assistance,Use of Upper Extremities Equipment Transfer Assistive Device Gait Belt Orthotic/Prosthetic Devices or Brace: No Transfers Transfer Destination Chair Transfer Technique Stand Step Pivot Transfer Ability Level of Assist Contact Guard Assistance,1 Person Assistance,Use of Upper Extremities Comments Mobility Comments pt in chair upon PT arrival who looked somewhat fatigue after he walked with nursing in the hallway. He has NG tube and PICC line in place. He agreed to attempt walking without AD today. He got up with UE pushed off from armrests. He then walked to the hallway with CGA. He did show uneven step length and needed supported through UE once he got to windows in the hallway. He completed one lap of [facility] and returned to his room. He lost his balance and needed assistance to recover. He then uses bed rails to support to get back to his chair. Pt appeared fatigue but he stated he is doing okay. BP 141/85. RN Rodrigo took over for patient care. Gait Assessment Gait Gait Assistance Required: Contact Guard Assist,1 Person Assist Distance (Feet) 200 Assistive Devices Assistive Device Gait Belt Orthotic/Prosthetic Devices or Brace: No Gait Deviations General Gait Pattern Decreased Stride Length, Decreased Feet Clearance Factors Limiting Gait Function Factors Limiting Gait Function Decreased Activity Tolerance, Decreased Strength,Poor Safety Awareness Comments Gait Comments refer to mobility section PT-Balance Assessment Sitting Balance and Reactions Static Sitting Balance Ability Good Dynamic Sitting Balance Ability Good Standing Balance and Reactions Static Standing Balance Ability Good Dynamic Standing Balance Ability Good Device Used FWW M5 PT-IP Objective Assessments Start: 07/27/21 12:31 Freq: NEEDED Status: Active Protocol: Document 07/28/21 12:00 AB (Rec: 07/28/21 14:14 AB [email or web address]) Orientation Orientation/Cognition Level of Alertness Alert Orientation Name,Place,Situation Language Function Ability Word Finding Difficulties Safety Awareness Decreased Safety Awareness Gross Range of Motion Lower Extremity ROM Assessment Within Functional Limits Strength Lower Extremity Strength Assessment Bilaterally Impaired Comments Strength Comments RLE: 4-/5 LLE: 3-/5 Muscle Tone Muscle Tone WNL No Other Assessments Other Other Assessments decrease motor control on LLE M6 PT-IP Treatment Start: 07/27/21 12:31 Freq: NEEDED Status: Active Protocol: Document 07/31/21 15:10 LJ (Rec: 07/31/21 15:21 LJ [id number]) Physical Therapy Treatment Education Education Provided Precautions,Safety M7 PT-IP Assessment and Plan Start: 07/27/21 12:31 Freq: NEEDED Status: Active Protocol: Document 08/04/21 15:06 HH (Rec: 08/04/21 15:17 HH [id number]) PT Summary Assessment and Plan Potential Rehabilitation Potential Good Status of Condition at Evaluation Evolving Summary Impairments Pain,ROM,Strength,Balance, Coordination,Sensation,Tone, Cognition,Bed Mobility, Transfers,Gait,Activity Tolerance Assessment Summary pt has NG tube and PICC in place. He appeared to be more fatigue today especially after his long walk with nursing. However, pt agreed to mobilize with PT again. Attempted to walk without FWW for a lap but he was somewhat unsteady and fatigue quickly. Will progressively use less on FWW as he gets stronger functionally. Goals Bed Mobility Goal Standby Assistance Transfer Goal Standby Assistance,Front Wheeled Walker Gait Goal Standby Assistance,Front Wheel Walker Gait Distance 300 Other Goals improve bed mobility, transfers SBA using fWW, ambulation using FWW SBA 150 ft 3 steps R rail ascending CGA Days to Meet Goals 10 Frequency of Treatment Frequency Of Treatment Once a Day Treatment Plan Physical Therapy Treatment Plan Bed Mobility Training,Transfer Training,Gait Training, Therapeutic Exercise,Balance Retraining,Post Op Education, Discharge Planning,Hot or Cold Pack,Neuromuscular Re-ed, Coordination Retraining,Manual Therapy Other Recommendations and Next Treatment stair training Focus gait training w/o FWW if tolerated Precautions Abdominal Surgery Precautions Log Roll,Lifting Restrictions, Gait Belt above Incisional Area Recommendations To Nursing Amount of Assist Needed 1 Person Assist Discharge Recommendations PT Discharge Recommendations Home with Assistance Transportation Needs at Discharge Private Vehicle
--- NOTE | 2021-08-04 15:35 | DIET.PN1 ---
Addendum entered by Ritu Owens 08/04/21 15:49: Interventions: 1. Recc TPN via PICC starting with 1L Clinimix 5/20 running at 41mL/h for first 24h. Pt at moderate risk for refeeding secondary to prolonged NPO and clear liquid phase diet, recc checking magnesium, phosphorus, and potassium bid through weekend and replete as needed. If pt tolerates feeding rate without signs of refeeding syndrome, recc increasing to 1.5L Clinimix 5/20 on day 2 running at 62mL/h. If pt tolerates feeding rate without signs of refeeding syndrome, recc increasing to goal of 2L Clinimix 5/20 on day 3 running at 82mL/h with 500mL IVFE (IVFE every other day) providing 105% kcal and 80% protein needs once at this goal rate. 2. If advancing pt diet, please ensure low fiber indicated in diet order as pt s/p colon resection. Original Note: Dietary Progress Note Assessment: 51y M starting TPN for prolonged ileus secondary to recent colon resection. TPN reccs below in interventions. Ht: 177.8 cm Wt: 106.594 kg BMI: 33.7 Last BM: 08/04/21 (08/04/21 09:00) MNA: 14 Gasper Score: 18 Diet: 08/03/21 22:59 NPO Diet Diet Modifications: Safety Tray needed?: No NPO Type: Strict Labs: RBC 3.85 X10^6/uL (4.5-5.9) L 08/04/21 04:25 Hgb 12.5 g/dL (13.5-17.5) L 08/04/21 04:25 Hct 36.7 % (41-53) L 08/04/21 04:25 Creatinine 0.77 mg/dL (0.66-1.25) 08/04/21 04:25 Nutrition Diagnosis: Severe Acute Protein Calorie Malnutrition r/t prolonged ileus aeb pt postop d8 for colon resection secondary to colon cancer, pt POs meeting <50% EER x8d on clear liquid diet, pt with increased needs for post-op healing. EER: 1900kcals (18kcal/kg per obese), 125g PRO (1.2g/kg per post-surgical) Interventions: 1. Recc TPN via PICC starting with 1L Clinimix 5/20 running at 41mL/h for first 24h. Pt at moderate risk for refeeding secondary to prolonged NPO and clear liquid phase diet, recc checking magnesium, phosphorus, and potassium bid through weekend and replete as needed. If pt tolerates feeding rate without signs of refeeding syndrome, recc increasing to 1.5L Clinimix 5/20 on day 2 running at 62mL/h. If pt tolerates feeding rate without signs of refeeding syndrome, recc increasing to goal of 2L Clinimix 5/20 on day 3 running at 82mL/h with 500mL IVFE (IVFE every other day) providing 105% kcal and 80% protein needs once at this goal rate. 2. If advancing pt diet, please ensure low fiber indicated in diet order as pt s/p colon resection. Monitoring/Evaluations: following closely Electronically Signed by: Ritu Owens 08/04/21 15:35 Clinical Dietitian [address] [address]
[2021-08-04] MEDS: NYSTATIN POWDER 15GM 1 APPLIC TOP (16:24)
[2021-08-04] MEDS: CIPROFLOXACIN 400 MG/200 ML PIGGYBACK 200 MG IV (16:24)
[2021-08-04] MEDS: AA 5 %/CALCIUM/LYTES/DEXT 20 % 1,000 ML with MULTIVITAMIN 10 ML, TRACE ELEMENTS 1 ML 42.125 ML IV (18:20)
[2021-08-04] MEDS: FAT EMULSIONS 50 GM/250 ML EMULSION IV (18:23)
--- NOTE | 2021-08-04 18:49 | PC.NURSE ---
PT REPORTS NO PAIN AND HAS BEEN UP AND AMBULATED X 3 THIS SHIFT - HAD 2 LARGE LIQUID BM'S AND DISLA PATENT FOR GOOD AMOUNT UOP- NPO EXCEPT ICE CHIPS AND NGT DRAINING LARGE AMOUNT OF GREENISH COLORED DRAINAGE - BULKY DRESSING REMAINS TO SHAILA DRAIN SITE- NEW PICC LINE PLACED AND TPN /LIPIDS INITIATED
[2021-08-05] VITALS (13 sets, daily range): BP systolic 124–134; BP diastolic 68–79; PULSE 90–99; RESP 16–20; TEMP 36.6–37.3; O2SAT 83–95
[2021-08-05] MEDS: CIPROFLOXACIN 400 MG/200 ML PIGGYBACK 200 MG IV ×2 (01:45→14:32)
--- NOTE | 2021-08-05 01:53 | PC.NURSE ---
0130- Metoprolol IV held. HR and BP WNL. Will monitor.
--- NOTE | 2021-08-05 08:56 | PT.IPTN ---
Current Diagnoses Malignant neoplasm of colon, unspecified (07/26/21) Unspecified convulsions (07/26/21) Encounter for follow-up examination after completed treatment for conditions other than malignant neoplasm (07/26/21) Surgery Performed Operation Date: 07/26/21 07:45 Actual Procedures p Laparoscopically Assisted Colectomy(Not Applicable) - Harjinder Hannah MD Physical Therapy Treatment Note M2 PT-IP Current Condition Start: 07/27/21 12:31 Freq: NEEDED Status: Active Protocol: Document 07/28/21 12:00 AB (Rec: 07/28/21 14:14 AB [email or web address]) Physical Therapy Current Condition Current Condition Evaluation Date 07/28/21 Treatment Diagnosis colon CA s/p colectomy; difficulty in walking Onset Date 07/26/21 M3 PT-IP Subjective Start: 07/27/21 12:31 Freq: NEEDED Status: Active Protocol: Document 08/05/21 08:48 HH (Rec: 08/05/21 08:56 HH [id number]) Subjective Physical Therapy Visit Type Type Treatment Note Visit Start Time 08:28 Visit Stop Time 08:45 Total Visit Minutes 17 Number of CONSTRUCTION SALES REPRESENTATIVE Visits 0 Physical Therapy Visit Comments Patient Comments Pt agreeable to PT even though he just returned from a walk with nursings. M4 PT-IP Mobility and Gait Start: 07/27/21 12:31 Freq: NEEDED Status: Active Protocol: Document 08/05/21 08:48 HH (Rec: 08/05/21 08:56 HH [id number]) PT-Transfer Assessment Sit to and From Stand Sit to and from Stand Contact Guard Assistance,1 Person Assistance,Use of Upper Extremities Equipment Transfer Assistive Device Gait Belt Orthotic/Prosthetic Devices or Brace: No Transfers Transfer Destination Chair Transfer Technique Stand Step Pivot Transfer Ability Level of Assist Contact Guard Assistance,1 Person Assistance,Use of Upper Extremities Comments Mobility Comments pt in chair upon PT arrival and appeared motivated. Agreeable to mobilize with PT without FWW. He does have NG tube and PICC line in place. PT assisted in holding PICC line pole and catheter. Pt got up from chair with UE to push off. He then walked around AC unit for approx 250 ft with AD but CGA. He required less rest break with improved gait stability. He did stumbled twice but able to recover. He did report of fatigue towards the end and needed bed rail support to slowly walk back to his chair. Call light placed within reach. Recommended nursing to use FWW with pt. Gait Assessment Gait Gait Assistance Required: Contact Guard Assist,1 Person Assist Distance (Feet) 250 Assistive Devices Assistive Device Gait Belt Orthotic/Prosthetic Devices or Brace: No Gait Deviations General Gait Pattern Decreased Stride Length, Decreased Feet Clearance Factors Limiting Gait Function Factors Limiting Gait Function Decreased Activity Tolerance, Decreased Strength,Poor Safety Awareness Comments Gait Comments refer to mobility section PT-Balance Assessment Sitting Balance and Reactions Static Sitting Balance Ability Good Dynamic Sitting Balance Ability Good Standing Balance and Reactions Static Standing Balance Ability Good Dynamic Standing Balance Ability Good Device Used FWW M5 PT-IP Objective Assessments Start: 07/27/21 12:31 Freq: NEEDED Status: Active Protocol: Document 07/28/21 12:00 AB (Rec: 07/28/21 14:14 AB [email or web address]) Orientation Orientation/Cognition Level of Alertness Alert Orientation Name,Place,Situation Language Function Ability Word Finding Difficulties Safety Awareness Decreased Safety Awareness Gross Range of Motion Lower Extremity ROM Assessment Within Functional Limits Strength Lower Extremity Strength Assessment Bilaterally Impaired Comments Strength Comments RLE: 4-/5 LLE: 3-/5 Muscle Tone Muscle Tone WNL No Other Assessments Other Other Assessments decrease motor control on LLE M6 PT-IP Treatment Start: 07/27/21 12:31 Freq: NEEDED Status: Active Protocol: Document 07/31/21 15:10 LJ (Rec: 07/31/21 15:21 LJ [id number]) Physical Therapy Treatment Education Education Provided Precautions,Safety M7 PT-IP Assessment and Plan Start: 07/27/21 12:31 Freq: NEEDED Status: Active Protocol: Document 08/05/21 08:48 HH (Rec: 08/05/21 08:56 HH [id number]) PT Summary Assessment and Plan Potential Rehabilitation Potential Good Status of Condition at Evaluation Evolving Summary Impairments Pain,ROM,Strength,Balance, Coordination,Sensation,Tone, Cognition,Bed Mobility, Transfers,Gait,Activity Tolerance Assessment Summary pt has NG tube and PICC in place. He appeared to be more energetic today. He completed gait training without AD for 250ft with CGA. He is more stable and requires less rest break but he did report fatigue at the end. Pt is slowly progressing at this point. Goals Bed Mobility Goal Standby Assistance Transfer Goal Standby Assistance,Front Wheeled Walker Gait Goal Standby Assistance,Front Wheel Walker Gait Distance 300 Other Goals improve bed mobility, transfers SBA using fWW, ambulation using FWW SBA 150 ft 3 steps R rail ascending CGA Days to Meet Goals 10 Frequency of Treatment Frequency Of Treatment Once a Day Treatment Plan Physical Therapy Treatment Plan Bed Mobility Training,Transfer Training,Gait Training, Therapeutic Exercise,Balance Retraining,Post Op Education, Discharge Planning,Hot or Cold Pack,Neuromuscular Re-ed, Coordination Retraining,Manual Therapy Other Recommendations and Next Treatment stair training Focus gait training w/o FWW if tolerated Precautions Abdominal Surgery Precautions Log Roll,Lifting Restrictions, Gait Belt above Incisional Area Recommendations To Nursing Amount of Assist Needed 1 Person Assist Discharge Recommendations PT Discharge Recommendations Home with Assistance Transportation Needs at Discharge Private Vehicle
[2021-08-05] MEDS: METOCLOPRAMIDE 10 MG/2 ML INJ IV ×3 (08:58→19:27)
[2021-08-05] MEDS: levETIRAcetam 1,000 MG in SODIUM CHLORIDE 0.9% 100 ML 440 ML IV ×2 (09:32→16:51)
[2021-08-05] MEDS: ENOXAPARIN 40 MG/0.4 ML SYRINGE SUBCUT (09:35)
--- NOTE | 2021-08-05 09:51 | PC.NURSE ---
Addendum entered by Sophia Westbrook R.N. 08/05/21 18:06: TPN for this shift completed at 42 mls/hr. No nausea or abd discomfort. Call into Dr Deal, obtained order to pull NG tube. Continue TPN this bag, likely stop tomorrow. Clear liq as tolerated. Having BMs this shift. Up ambulating in halls frequently this shift. Original Note: Nursing Note AM shift Pt is A/o x3, able to ambulate with PT around nursing station. NGT R nare to LIS. Green bile noted to canister. No c/o nausea. BT+ flatus + reports overall significantly better than previous day or 2 Pulliam draining nargis urine. Dressing to ABD from jackie drain removal with old drainage, POC to change this shift. PICC to LUE TPN infusing @ 42.
[2021-08-05] MEDS: SODIUM CHLORIDE 0.9% IV ×2 (10:26→20:54)
[2021-08-05] MEDS: FOSPHENYTOIN IV ×2 (10:26→20:54)
[2021-08-05] MEDS: NYSTATIN CREAM 30 GM 1 APPLIC TOP ×3 (10:39→20:54)
--- NOTE | 2021-08-05 13:23 | PM.PN.1 ---
Subjective Subjective Date Patient Seen: 08/05/21 Time Patient Seen: 13:23 Interval history: States is passing gas, no nausea with NG tube. No seizure activity overnight. Exam Vital Signs (past 8 hours): - 08/05/21 07:36 08/05/21 11:19 Temperature 98.8 F 98.9 F Pulse Rate 95 H 93 H Respiratory Rate 20 16 Blood Pressure 125/68 134/78 Pulse Oximetry 93 93 Oxygen Delivery Method Room Air Oxygen Flow Rate 0 Narrative Exam Narrative: GEN: alert, no acute distress ABD: soft, mildly distended CV: RRR no m/r/g Pulm: CTA b/l. Ext: No edema or joint effusions Objective Labs Result Diagrams: 08/04/21 04:25 08/04/21 04:25 PFS Medical History Hemorrhoid (~02/15/14) Postop check Seizure Static encephalopathy Surgical History Hx of colonoscopy Hx of oral surgery Family History Father CAD (coronary artery disease) Hypertension Diabetes mellitus Cancer Mother CAD (coronary artery disease) Hypertension Stroke Social History marital status: household members: family Smoking Status: Never smoker alcohol intake: never substance use type: does not use Assessment & Plan Assessment & Plan narrative: Mr. Jha is a 50M with developmental delay, seizure disorder, and colon cancer s/p colectomy who had witnessed seizure like activity. 1. Acute seizure, seizure disorder -patient has a difficult to control seizure disorder, that has had breakthrough seizures despite being on four anti-epileptics -has had zonisamide and primidone held due to being NPO possibly precipitating withdrawal seizures -lytes, magnesium normal -stopped scopolamine -continue keppra and fosphenytoin, switch to oral when feasible. For now continue IV keppra 1000 mg TID per home dosing. -restart zonisamide and primidone once tolerating clears again -use IV Ativan if needed 2. Colon cancer s/p colectomy with post-operative ileus -primary management per surgical team 3.? Postop urinary retention with UTI -failed trial of Pulliam removal and Pulliam reinserted on August 01 -urine culture from July 31 pending, on zosyn Medicine will continue to follow given repeat seizure activity. Time Spent With Patient Critical Care time: I spent a total of [] minutes of critical care time on this patient's care today; this time is exclusive of procedural time. Quality VTE Deep Vein Thrombosis/Pulmonary Embolism Present on Admission: No
[2021-08-05] MEDS: AA 5 %/CALCIUM/LYTES/DEXT 20 % 1,000 ML with MULTIVITAMIN 10 ML, TRACE ELEMENTS 1 ML 42.125 ML IV (19:27)
[2021-08-05] MEDS: PRIMIDONE 50 MG TABLET 250 MG PO (20:54)
[2021-08-06] VITALS (14 sets, daily range): BP systolic 124–154; BP diastolic 76–89; PULSE 93–103; RESP 16–18; TEMP 36.3–36.8; O2SAT 91–97
[2021-08-06] MEDS: METOCLOPRAMIDE 10 MG/2 ML INJ IV ×3 (00:12→12:08)
[2021-08-06] MEDS: levETIRAcetam 1,000 MG in SODIUM CHLORIDE 0.9% 100 ML 440 ML IV (00:12)
[2021-08-06] MEDS: CIPROFLOXACIN 400 MG/200 ML PIGGYBACK 200 MG IV ×2 (02:12→14:31)
[2021-08-06 06:43] LABS: Add Manual Diff / Slide Review NO; Basophils Absolute Auto 100 /uL (0-100); Basophils Percent Auto 0.9 % (0-2); Eosinophils Absolute Auto 700 /uL (0-450); Eosinophils Percent Auto 5.8 % (2-4); Hematocrit 34.3 % (41-53); Hemoglobin 11.8 g/dL (13.5-17.5); Lymphocytes Absolute Auto 1600 /uL (1100-4500); Lymphocytes Percent Auto 13.5 % (25-40); Mean Corpuscular HGB Conc 34.4 % (30-36); Mean Corpuscular Hemoglobin 32.9 PG (26-34); Mean Corpuscular Volume 95.7 fL (80-100); Monocytes Absolute Auto 1300 /uL (0-900); Monocytes Percent Auto 10.6 % (3-14); Neutrophils Absolute Auto 8200 /uL (1500-7000); Neutrophils Percent Auto 69.2 % (50-75); Platelet Count 332 X10^3/uL (150-400); Red Blood Cell Count 3.59 X10^6/uL (4.5-5.9); Red Cell Distribution Width 12.4 % (11.6-14.8); White Blood Cell Count 11.8 X10^3/uL (4.5-11.0)
[2021-08-06 06:53] LABS: Alanine Aminotransferase 51 IU/L (<50); Albumin 2.9 g/dL (3.5-5.0); Alkaline Phosphatase 49 U/L (38-126); Aspartate Aminotransferase 34 IU/L (17-59); BUN Creatinine Ratio 18.4 (6-22); Bilirubin Total 0.4 mg/dL (0.2-1.3); Blood Urea Nitrogen 9 mg/dL (9-20); Calcium 7.7 mg/dL (8.4-10.2); Carbon Dioxide 32 mmol/L (22-32); Chloride 101 mmol/L (98-107); Estimated Glomerular Filt Rate > 60.0 mL/min (>60); Globulin 2.8 g/dL (1.7-4.1); Glucose 131 mg/dL (70-100); HEMOLYSIS < 15 (0-50); Magnesium 1.9 mg/dL (1.6-2.3); Phosphorous 3.8 mg/dL (2.5-4.5); Potassium 2.9 mmol/L (3.4-5.1); Sodium 139 mmol/L (137-145); Total Protein 5.7 g/dL (6.3-8.2)
[2021-08-06] MEDS: ENOXAPARIN 40 MG/0.4 ML SYRINGE SUBCUT (09:18)
[2021-08-06] MEDS: levETIRAcetam 250 MG TABLET 1000 MG PO ×3 (09:18→16:47)
[2021-08-06] MEDS: PHENYTOIN ER 100 MG CAPSULE 200 MG PO (09:18)
[2021-08-06] MEDS: NYSTATIN CREAM 30 GM 1 APPLIC TOP ×2 (09:19→21:11)
[2021-08-06] MEDS: PRIMIDONE 50 MG TABLET 250 MG PO ×3 (09:19→21:10)
[2021-08-06] MEDS: ZONISAMIDE 100 MG CAPSULE 200 MG PO ×2 (09:19→16:47)
--- NOTE | 2021-08-06 11:33 | PT.IPTN ---
Current Diagnoses Malignant neoplasm of colon, unspecified (07/26/21) Unspecified convulsions (07/26/21) Encounter for follow-up examination after completed treatment for conditions other than malignant neoplasm (07/26/21) Surgery Performed Operation Date: 07/26/21 07:45 Actual Procedures p Laparoscopically Assisted Colectomy(Not Applicable) - Harjinder Hannah MD Physical Therapy Treatment Note M2 PT-IP Current Condition Start: 07/27/21 12:31 Freq: NEEDED Status: Active Protocol: Document 08/06/21 11:02 SP (Rec: 08/06/21 14:01 SP [id number]) Physical Therapy Current Condition Current Condition Evaluation Date 07/28/21 Treatment Diagnosis colon CA s/p colectomy; difficulty in walking Onset Date 07/26/21 M3 PT-IP Subjective Start: 07/27/21 12:31 Freq: NEEDED Status: Active Protocol: Document 08/06/21 11:02 SP (Rec: 08/06/21 14:01 SP [id number]) Subjective Physical Therapy Visit Type Type Treatment Note Visit Start Time 11:02 Visit Stop Time 11:33 Total Visit Minutes 31 Notes mother in room observation only throughout tx, states she and her are older and not able to give alot of physical support if needed. Number of PETS SALESPERSON Visits 1 Physical Therapy Visit Comments Patient Comments Pt agreeable to working with theray. Therapy Pain Assessment Pain Present Pain Present Denied Pain M4 PT-IP Mobility and Gait Start: 07/27/21 12:31 Freq: NEEDED Status: Active Protocol: Document 08/06/21 11:02 SP (Rec: 08/06/21 14:01 SP [id number]) PT-Transfer Assessment Sit to and From Stand Sit to and from Stand Contact Guard Assistance,Use of Upper Extremities Equipment Transfer Assistive Device Gait Belt,Front Wheeled Walker Orthotic/Prosthetic Devices or Brace: No Transfers Transfer Destination Chair Transfer Technique pt ambulated no AD, FWW Transfer Ability Level of Assist Contact Guard Assistance, Minimal Assistance,1 Person Assistance,Use of Upper Extremities Comments Mobility Comments Pt seated in room when arrived , mother in room when arrived. Sit>stand from chair CGA, once in standing walked tosink no AD, unsteady trunk sway, 5 %A for recovery by PETS SALESPERSON. PETS SALESPERSON provided fWW for self steading trunk. Pt improved progressed gait to stairs, completed stairs CG> Min A due to LOB to L using RLE 1 UE only and receiprocal LE Patterning, improved ed for BUE on R HR step to patterning improved steadying self 2 stairs ascend /descend and gait back approx 540 ft total CG- 5%A, noted wt shift way to R when turning head to R but self recovery using FWW receiprocal stepping and cues for body closer as needed, good pacing. Pt returned to chair when back in room,cued for reaching back for self slow descent. Pt is ok to return home with parents to assist him. Recommended getting shower chair to sit down on for safety and has a dish hayes in shower mother states can help steady himself for showering but that she will be with him and might use gait belt for safety. Gait Assessment Gait Gait Assistance Required: Contact Guard Assist,1 Person Assist Distance (Feet) 540 Assistive Devices Assistive Device Gait Belt,Front Wheeled Walker Orthotic/Prosthetic Devices or Brace: No Gait Deviations General Gait Pattern Antalgic,Lateral Trunk Lean Factors Limiting Gait Function Factors Limiting Gait Function Decreased Activity Tolerance, Decreased Strength,Poor Balance,Poor Safety Awareness Comments Gait Comments see mobility comments, unsteady without AD, more steady with FWW, 1 trunk sway during gait w/ head turn self recover CGA w/ FWW. Stair Climbing Assessment Evaluation Level of Assist On Stairs Contact Guard Assistance, Minimal Assistance,1 Person Assistance Devices Stair Climbing Assistive Devices Right Railing Technique/Endurance Stair Climbing Direction Ascend and Descend Stair Climbing Technique Step Over Step,Step to Step Number of Steps Climbed 3 Stair Climbing Set # Repetitions (reps) 1 Comments Stair Climbing Comments see mobility comments PT-Balance Assessment Sitting Balance and Reactions Static Sitting Balance Ability Normal Dynamic Sitting Balance Ability Normal Standing Balance and Reactions Static Standing Balance Ability Good Dynamic Standing Balance Ability Fair Device Used FWW, poor with no AD M5 PT-IP Objective Assessments Start: 07/27/21 12:31 Freq: NEEDED Status: Active Protocol: Document 07/28/21 12:00 AB (Rec: 07/28/21 14:14 AB [id number]) Orientation Orientation/Cognition Level of Alertness Alert Orientation Name,Place,Situation Language Function Ability Word Finding Difficulties Safety Awareness Decreased Safety Awareness Gross Range of Motion Lower Extremity ROM Assessment Within Functional Limits Strength Lower Extremity Strength Assessment Bilaterally Impaired Comments Strength Comments RLE: 4-/5 LLE: 3-/5 Muscle Tone Muscle Tone WNL No Other Assessments Other Other Assessments decrease motor control on LLE M6 PT-IP Treatment Start: 07/27/21 12:31 Freq: NEEDED Status: Active Protocol: Document 08/06/21 11:02 SP (Rec: 08/06/21 14:01 SP [id number]) Physical Therapy Treatment Education Education Provided Safety M7 PT-IP Assessment and Plan Start: 07/27/21 12:31 Freq: NEEDED Status: Active Protocol: Document 08/06/21 11:02 SP (Rec: 08/06/21 14:01 SP [id number]) PT Summary Assessment and Plan Potential Rehabilitation Potential Good Status of Condition at Evaluation Evolving Summary Impairments Pain,ROM,Strength,Balance, Coordination,Sensation,Tone, Cognition,Bed Mobility, Transfers,Gait,Activity Tolerance Progress Towards Goals Progressing Toward Goals,Slow Progress due to Activity Tolerance Assessment Summary Transfers and gait CG- Min A without AD, CGA using FWW. Cg- Min A on stairs LOB x1 Min A for correction and ed for BUE on R HR step to gait patterning improved stability. PETS SALESPERSON recommended use of fWW at home / assist available and HHPT for improving strength and functional mobiltiy toward PLOF and independence with pt and mother in agreement. Pt is ok to return home with family to assist him 16/04. Goals Bed Mobility Goal Standby Assistance Transfer Goal Standby Assistance,Front Wheeled Walker Gait Goal Standby Assistance,Front Wheel Walker Gait Distance 300 Other Goals improve bed mobility, transfers SBA using fWW, ambulation using FWW SBA 150 ft 3 steps R rail ascending CGA Days to Meet Goals 10 Frequency of Treatment Frequency Of Treatment Once a Day Treatment Plan Physical Therapy Treatment Plan Bed Mobility Training,Transfer Training,Gait Training, Therapeutic Exercise,Balance Retraining,Post Op Education, Discharge Planning,Hot or Cold Pack,Neuromuscular Re-ed, Coordination Retraining,Manual Therapy Other Recommendations and Next Treatment gait further distance LRAD, Focus balance trng Precautions Abdominal Surgery Precautions Log Roll,Lifting Restrictions, Gait Belt above Incisional Area Recommendations To Nursing Amount of Assist Needed 1 Person Assist Discharge Recommendations PT Discharge Recommendations Home with 24/7 Assist Available,Home Health Transportation Needs at Discharge Private Vehicle
[2021-08-06] MEDS: POTASSIUM CHLORIDE 20 MEQ TAB 40 MEQ PO ×2 (12:08→18:54)
[2021-08-06] MEDS: ZONISAMIDE 100 MG CAPSULE PO (12:08)
--- NOTE | 2021-08-06 12:15 | PM.PN.1 ---
Subjective Subjective Date Patient Seen: 08/06/21 Time Patient Seen: 12:15 Interval history: No tolerating full liquids. Passing gas, no BM he states. No further seizures. Back on home medications this morning. Exam Vital Signs (past 8 hours): - 08/06/21 08:00 Temperature 98.0 F Pulse Rate 94 H Respiratory Rate 16 Blood Pressure 137/89 Pulse Oximetry 92 Oxygen Delivery Method Room Air Oxygen Flow Rate 0 Narrative Exam Narrative: GEN: alert, no acute distress ABD: soft, mildly distended CV: RRR no m/r/g Pulm: CTA b/l. Ext: No edema or joint effusions Objective Labs Result Diagrams: 08/06/21 06:35 08/06/21 06:35 Labs: Laboratory Results - last 24 hr 08/06/21 08/06/21 06:35 06:35 WBC 11.8 H RBC 3.59 L Hgb 11.8 L Hct 34.3 L MCV 95.7 MCH 32.9 MCHC 34.4 RDW 12.4 Plt Count 332 Neut % (Auto) 69.2 Lymph % (Auto) 13.5 L [place] % (Auto) 10.6 Eos % (Auto) 5.8 H Baso % (Auto) 0.9 Neut # (Auto) 8200 H Lymph # (Auto) 1600 [place] # (Auto) 1300 H Eos # (Auto) 700 H Baso # (Auto) 100 Sodium 139 Potassium 2.9 L Chloride 101 Carbon Dioxide 32 BUN 9 Creatinine 0.49 L Estimated GFR > 60.0 BUN/Creatinine Ratio 18.4 Glucose 131 H Calcium 7.7 L Phosphorus 3.8 Magnesium 1.9 Total Bilirubin 0.4 AST 34 ALT 51 H Alkaline Phosphatase 49 Total Protein 5.7 L Albumin 2.9 L Globulin 2.8 Albumin/Globulin Ratio 1.0 PFSH Medical History Hemorrhoid (~02/15/14) Postop check Seizure Static encephalopathy Surgical History Hx of colonoscopy Hx of oral surgery Family History Father CAD (coronary artery disease) Hypertension Diabetes mellitus Cancer Mother CAD (coronary artery disease) Hypertension Stroke Social History marital status: household members: family Smoking Status: Never smoker alcohol intake: never substance use type: does not use Assessment & Plan Assessment & Plan narrative: Mr. Jha is a 50M with developmental delay, seizure disorder, and colon cancer s/p colectomy who had witnessed seizure like activity. 1. Acute seizure, seizure disorder -patient has a difficult to control seizure disorder, that has had breakthrough seizures despite being on four anti-epileptics -has had zonisamide and primidone held due to being NPO possibly precipitating withdrawal seizures -now back to full liquids. changed back to his oral medications. -use IV Ativan if needed for seizure activity. 2. Colon cancer s/p colectomy with post-operative ileus -primary management per surgical team 3.? Postop urinary retention, likely contaminated UA and urine culture, less likely UTI. -failed trial of Pulliam removal and Pulliam reinserted on August 01 -urine culture from July 31 grew staph epidermidis, suspect contaminant. Can discontinue antibiotics from standpoint of UTI. - Given improvement and patient appears to be controlled at this time, medicine will sign off. Please reach out to hospitalist service if any additional questiosn or concerns arise. Time Spent With Patient Critical Care time: I spent a total of [] minutes of critical care time on this patient's care today; this time is exclusive of procedural time. Quality VTE Deep Vein Thrombosis/Pulmonary Embolism Present on Admission: No
--- NOTE | 2021-08-06 15:41 | P.PN_ITS ---
Subjective Subjective Date Patient Seen: 08/06/21 Time Patient Seen: 15:41 Interval history: ileus resolved, tolerating po Exam Vital Signs (past 8 hours): - 08/06/21 07:50 08/06/21 07:51 08/06/21 08:00 Temperature 98.0 F Pulse Rate 96 H 94 H 94 H Respiratory Rate 16 Blood Pressure 137/89 137/89 Pulse Oximetry 91 93 92 08/06/21 11:11 08/06/21 11:40 08/06/21 11:48 Temperature 97.6 F Pulse Rate 101 H 100 H 100 H Respiratory Rate 17 Blood Pressure 124/80 127/82 127/82 Pulse Oximetry 94 95 96 Oxygen Delivery Method Room Air Oxygen Flow Rate 0 Narrative Exam Narrative: soft, distended. No infection of wound Objective Labs Result Diagrams: 08/06/21 06:35 08/06/21 06:35 Labs: Laboratory Results - last 24 hr 08/06/21 08/06/21 06:35 06:35 WBC 11.8 H RBC 3.59 L Hgb 11.8 L Hct 34.3 L MCV 95.7 MCH 32.9 MCHC 34.4 RDW 12.4 Plt Count 332 Neut % (Auto) 69.2 Lymph % (Auto) 13.[address] [place] [place] % (Auto) 10.6 Eos % (Auto) 5.8 H Baso % (Auto) 0.9 Neut # (Auto) 8200 H Lymph # (Auto) 1600 [place] # (Auto) 1300 H Eos # (Auto) 700 H Baso # (Auto) 100 Sodium 139 Potassium 2.9 L Chloride 101 Carbon Dioxide 32 BUN 9 Creatinine 0.49 L Estimated GFR > 60.0 BUN/Creatinine Ratio 18.4 Glucose 131 H Calcium 7.7 L Phosphorus 3.8 Magnesium 1.9 Total Bilirubin 0.4 AST 34 ALT 51 H Alkaline Phosphatase 49 Total Protein 5.7 L Albumin 2.9 L Globulin 2.8 Albumin/Globulin Ratio 1.0 PFSH Medical History Hemorrhoid (~02/15/14) Postop check Seizure Static encephalopathy Surgical History Hx of colonoscopy Hx of oral surgery Family History Father CAD (coronary artery disease) Hypertension Diabetes mellitus Cancer Mother CAD (coronary artery disease) Hypertension Stroke Social History marital status: household members: family Smoking Status: Never smoker alcohol intake: never substance use type: does not use Assessment & Plan Post-op Postoperative Procedures: Procedures Operation Date: 07/26/21 07:45 Actual Procedure Side Surgeon p Laparoscopically Assisted Colectomy Not Applicable Harjinder Hannah MD Postoperative status: doing well Postoperative status narrative: 2 episodes of postop ileus now resolved, no complications seen on postop CT 08/04. Tolerating PO and having BM. Tachycardic. will continue to monitor Seizures: back on home meds, hospitalist signed off. hypo K+ Urinary retention with shay in since 08/01 Postoperative plan: ambulate and advance diet Postoperative plan narrative: mobilize with intent for discharge remove shay and monitor for urinary retention replace K+ with oral solution Advance diet as tolerated Stop TPN Quality VTE Deep Vein Thrombosis/Pulmonary Embolism Present on Admission: No
[2021-08-06 22:16] LABS: HEMOLYSIS < 15 (0-50)
--- NOTE | 2021-08-06 22:22 | PC.NURSE ---
2220- Dr. Deal notified of potassium result no order rec. Will recheck level in the AM.
--- NOTE | 2021-08-07 03:21 | PC.NURSE ---
Pt. cried out that the blood pressure was too tight and she refused to let me take her last blood pressure
[2021-08-07 05:30] VITALS: BP 138/85; PULSE 98; RESP 18; TEMP 36.4; O2SAT 92
[2021-08-07 05:54] LABS: BUN Creatinine Ratio 12.7 (6-22); Blood Urea Nitrogen 9 mg/dL (9-20); Calcium 8.1 mg/dL (8.4-10.2); Carbon Dioxide 30 mmol/L (22-32); Chloride 102 mmol/L (98-107); Estimated Glomerular Filt Rate > 60.0 mL/min (>60); Glucose 113 mg/dL (70-100); HEMOLYSIS < 15 (0-50); Potassium 3.5 mmol/L (3.4-5.1); Sodium 137 mmol/L (137-145)
[2021-08-07 05:57] LABS: C-Reactive Protein Quant 7.5 mg/dL (<1.0)
[2021-08-07 06:01] LABS: Prealbumin 14.4 mg/dL (17.6-36.0)
[2021-08-07 07:45] VITALS: PULSE 98; RESP 16; TEMP 36.6; O2SAT 92
[2021-08-07] MEDS: ENOXAPARIN 40 MG/0.4 ML SYRINGE SUBCUT (08:22)
[2021-08-07] MEDS: PHENYTOIN ER 100 MG CAPSULE 200 MG PO (08:22)
[2021-08-07] MEDS: levETIRAcetam 250 MG TABLET 1000 MG PO ×2 (08:22→12:01)
[2021-08-07] MEDS: POTASSIUM CHLORIDE 20 MEQ/15 ML UDC PO (08:22)
[2021-08-07] MEDS: ZONISAMIDE 100 MG CAPSULE 200 MG PO (08:23)
[2021-08-07] MEDS: NYSTATIN CREAM 30 GM 1 APPLIC TOP (08:24)
[2021-08-07] MEDS: PRIMIDONE 50 MG TABLET 250 MG PO (08:31)
--- NOTE | 2021-08-07 08:44 | PM.PNPO.1 ---
Subjective Subjective Date Patient Seen: 08/07/21 Interval history: active problems post op: Urinary rentention Hypokalemia Seizures Post op ileus Protein malnutrition S/p LAR for colon cancer Exam Vital Signs (past 8 hours): - 08/07/21 05:30 Temperature 97.6 F Pulse Rate 98 H Respiratory Rate 18 Blood Pressure 138/85 Pulse Oximetry 92 Oxygen Delivery Method Room Air Oxygen Flow Rate 0 Narrative Exam Narrative: abdomen is benign. Wounds healing w/o infection Objective Labs Result Diagrams: 08/06/21 06:35 08/07/21 05:16 Labs: Laboratory Results - last 24 hr 08/06/21 08/07/21 08/07/21 21:57 05:16 05:16 Sodium 137 Potassium 3.0 L 3.5 Chloride 102 Carbon Dioxide 30 BUN 9 Creatinine 0.71 Estimated GFR > 60.0 BUN/Creatinine Ratio 12.7 Glucose 113 H Calcium 8.1 L C-Reactive Protein 7.5 H Prealbumin 14.4 L PFSH Medical History Hemorrhoid (~02/15/14) Postop check Seizure Static encephalopathy Surgical History Hx of colonoscopy Hx of oral surgery Family History Father CAD (coronary artery disease) Hypertension Diabetes mellitus Cancer Mother CAD (coronary artery disease) Hypertension Stroke Social History marital status: household members: family Smoking Status: Never smoker alcohol intake: never substance use type: does not use Assessment & Plan Post-op Postoperative Procedures: Procedures Operation Date: 07/26/21 07:45 Actual Procedure Side Surgeon p Laparoscopically Assisted Colectomy Not Applicable Harjinder Hannah MD Postoperative status: doing well Postoperative plan: routine post-op care Postoperative plan narrative: discharge home with added PPI Time Spent With Patient Time with patient: less than 15 minutes Quality VTE Deep Vein Thrombosis/Pulmonary Embolism Present on Admission: No
[2021-08-07 11:00] VITALS: BP 123/78; PULSE 97; RESP 18; TEMP 36.3; O2SAT 95
[2021-08-07] MEDS: ZONISAMIDE 100 MG CAPSULE PO (12:00)
--- NOTE | 2021-08-07 12:43 | PM.DS.1 ---
History of Present Illness History of Present Illness Date Patient Seen: 08/07/21 Time Patient Seen: 12:43 Chief complaint: Colon Resection Narrative: No issues overnight. Pulliam out and eating regular diet. Comfortable going home. Discharge Providers Provider Date of admission: 07/26/21 06:29 Discharge Date: 08/07/21 Primary care physician: Jyotsna Sky DO Consults: 07/26/21 13:37 Consult to Discharge Planning Routine Comment: Consult to Occupational Therapy Evaluate & Treat Comment: Physician Instructions: Evaluate and treat Consult to Physical Therapy Evaluate & Treat Comment: Physician Instructions: Evaluate and Treat 08/02/21 08:52 Consult to Occupational Therapy Evaluate & Treat Comment: Physician Instructions: Evaluate and treat 08/07/21 08:42 Consult to Dietitian, Adult Routine Comment: Reason For Exam: protein malnutrition Discharge provider: Anastasiia Deal MD Summary Hospital Course Discharge Diagnosis: S/p LAR for colon cancer. Urinary retention seizure protein calorie malnutrition post op ileus hypokalemia Hospital Course: complicated and prolonged by the above issues. Has recovered and ready for discharge today. Status at Discharge Cognitive/behavioral status at discharge: at baseline, oriented Functional status at discharge: independent ambulation Overall status at discharge: patient is progressing back to baseline Time Spent with Patient Time spent: Less than 30 minutes Exam Vital Signs (past 8 hours): - 08/07/21 05:30 08/07/21 07:45 Temperature 97.6 F 97.8 F Pulse Rate 98 H 98 H Respiratory Rate 18 16 Blood Pressure 138/85 Pulse Oximetry 92 92 Oxygen Delivery Method Room Air Oxygen Flow Rate 0 Const General: cooperative and comfortable HENMT Head: normocephalic and atraumatic Eyes Sclera: sclerae normal Neck Neck: trachea midline Chest Chest: normal inspection of the chest Resp Effort & Inspection: normal respiratory effort and able to speak in complete sentences Cardio Rate: regular rate Rhythm: regular rhythm GI Other: obese, soft. Wound healing w/o signs of infection Neuro General: patient alert and patient oriented x3 Psych Appearance: grossly normal Mental Status: mental status grossly normal Attitude: cooperative Judgment: limited Objective Labs Result Diagrams: 08/06/21 06:35 08/07/21 05:16 Labs: Laboratory Results - last 24 hr 08/06/21 08/07/21 08/07/21 21:57 05:16 05:16 Sodium 137 Potassium 3.0 L 3.5 Chloride 102 Carbon Dioxide 30 BUN 9 Creatinine 0.71 Estimated GFR > 60.0 BUN/Creatinine Ratio 12.7 Glucose 113 H Calcium 8.1 L C-Reactive Protein 7.5 H Prealbumin 14.4 L PFSH Medical History Hemorrhoid (~02/15/14) Postop check Seizure Static encephalopathy Surgical History Hx of colonoscopy Hx of oral surgery Family History Father CAD (coronary artery disease) Hypertension Diabetes mellitus Cancer Mother CAD (coronary artery disease) Hypertension Stroke Social History marital status: household members: family Smoking Status: Never smoker alcohol intake: never substance use type: does not use Discharge Assessment & Plan Assessment and Plan Assessment: S/p LAR for colon cancer. prolonged hospital course due to Seizure Developemently delayed Urinary retention Post op ileus Protein calorie malnutrition Plan of Treatment: Home with mother. High protein diet. No heavy lifting with follow up Dr. Hannah 2-4 weeks. Discharge Plan Discharge Plan Patient Disposition: Home Discharge orders & Medications Prescriptions: New acetaminophen 325 mg Tablet 650 mg PO Q6HR PRN (Reason: Fever/Mild Pain (1-3)) Qty: 60 RF: 0 oxycodone 10 mg Tablet 10 mg PO Q6HR PRN (Reason: Pain, Severe (7-10)) Qty: 15 RF: 0 omeprazole magnesium [Prilosec OTC] 20 mg tablet,delayed release (DR/EC) 20 mg PO BID Qty: 60 RF: 0 Continued levetiracetam [Keppra] 1,000 mg tablet 1,000 mg PO TID Qty: 270 RF: 0 primidone 250 mg tablet 250 mg PO TID Qty: 270 RF: 0 zonisamide 100 mg capsule See Rx Instructions PO .COMPLEX Qty: 450 RF: 0 phenytoin sodium extended [Dilantin Extended] 100 mg capsule See Rx Instructions PO .COMPLEX Qty: 270 RF: 0 cholecalciferol (vitamin D3) 25 mcg (1,000 unit) capsule 25 mcg PO DAILY RF: 0 multivitamin Tablet 1 tab PO DAILY RF: 0 neomycin 500 mg tablet 1 g PO TID 0 Days Qty: 6 RF: 0 bisacodyl [Dulcolax (bisacodyl)] 5 mg tablet,delayed release (DR/EC) 10 mg PO BID Qty: 4 RF: 0 triamcinolone acetonide 0.1 % cream 1 applictn TOP BID PRN (Reason: Rash) RF: 0 Discontinued metronidazole [Flagyl] 500 mg tablet 1,000 mg PO TID Qty: 6 RF: 0 magnesium citrate Solution 300 ml PO ONCE Qty: 296 RF: 0 Follow up/Referrals: Anastasiia Deal MD [Physician] - Jyotsna Sky DO [Primary Care Provider] - Diet/Activity/Treatments Diet: Diet as Tolerated Visit Report/Discharge Packet Instructions: DI for Colectomy Discharge Data Primary Care Provider: Jyotsna Sky Quality VTE Deep Vein Thrombosis/Pulmonary Embolism Present on Admission: No
--- NOTE | 2021-08-07 13:38 | CM.DPC ---
DCP continued: CM spoke with patient at the bedside and discussed patients DC planning needs. patient stated he feels he will need help at home to gain strength. CM Asked if patient and family would like HH services. they stated they would like home health. CM will work with MD to set up HH services through [facility] . CM called [facility] they are reviewing but more then likely will be able to accept patient for services- CM Faxed clinicals for their review- need F2F signed- copy in red chart needing to be signed. Florinda Joy RNprobate paralegal
--- NOTE | 2021-08-07 14:03 | CM.DANOTE ---
Discharge patient to home, PICC line removed, all belongings gathered and with patient. Discharge orders review with patient an mother, all questions answered. Patient assisted into wheelchair and escorted into private vehicle. No further patient contact.
== END 2021-08-07 13:45 | disposition home or self-care (01) | DRG 329 ==
LOC: AC 06:31 → ICU 11:20
PROVIDERS: Internal Medicine; Surgery; Admitting Provider Surgery; Family Provider Family Medicine; PCP Family Medicine; Referring Provider Surgery; Visit Provider Surgery
PROC: 0DTE0ZZ Resection of Large Intestine, Open Approach (ICD-10-PCS; principal; 2021-07-26 07:45)
DX: C18.7 Malignant neoplasm of sigmoid colon (principal); E43 Unspecified severe protein-calorie malnutrition; K56.7 Ileus, unspecified; N17.9 Acute kidney failure, unspecified; N13.8 Other obstructive and reflux uropathy; G40.919 Epilepsy, unspecified, intractable, without status epilepticus; R62.50 Unspecified lack of expected normal physiological development in childhood; R33.9 Retention of urine, unspecified; K62.1 Rectal polyp; E87.6 Hypokalemia; R00.0 Tachycardia, unspecified; Z68.33 Body mass index [BMI] 33.0-33.9, adult; Z20.822 Contact with and (suspected) exposure to COVID-19
CPT/HCPCS: 36415; 36569; 44206; 71045; 74018; 74177; 80048; 80053; 80076; 80164; 81001; 82962; 83735; 84100; 84132; 84134; 85025; 86140; 87077; 87086; 87147; 87186; 87635; 87797; 94760; 97110; 97116; 97162; 97166; 97530; 97535; C9803; B4185; B4189; J0131; J0744; J1100; J1165; J1170; J1650; J1953; J2060; J2250; J2405; J2543; J2704; J2765; J3010; J3475; Q2009; Q9967

== ENCOUNTER → 2021-08-29 10:08 | Outpatient (CLI) | payer MEDICARE, MEDICAID, SELFPAY ==
[2021-07-26 15:04] VITALS: BMI 33.7
[2021-08-29 10:38] LABS: COVID19 -Nasal RAPID Negative (Negative)
== END ==
PROVIDERS: PCP Family Medicine; Visit Provider Surgery
DX: Z01.812 Encounter for preprocedural laboratory examination (principal); Z20.822 Contact with and (suspected) exposure to COVID-19
CPT/HCPCS: 87635; C9803

== ENCOUNTER 2021-08-30 09:16 | Day surgery (SDC) | payer MEDICARE, MEDICAID, SELFPAY ==
[2021-07-26 15:04] VITALS: BMI 33.7
[2021-08-29 12:12] VITALS: BMI 31.5
[2021-08-30] VITALS (8 sets, daily range): BP systolic 115–135; BP diastolic 65–95; PULSE 65–98; RESP 16; TEMP 36.1–36.6; O2SAT 94–98; BMI 29.8
--- NOTE | 2021-08-30 | DI.RAD.S_ITS ---
PROCEDURE: XR CHEST 1V INDICATIONS: PORT A CATH TECHNIQUE: One view of the chest was acquired. COMPARISON: [facility], CT, CT ABDOMEN PELVIS W CON, 08/04/2021, 10:34. [facility], CR, XR CHEST FOR PICC 1V, 08/04/2021, 13:54. FINDINGS: Surgical changes and devices: Right CT injectable port a catheter with tip overlying the mid SVC. Lungs and pleura: Persistent elevation of the diaphragm with evidence of bibasilar atelectasis. No pleural effusions or pneumothorax. Mediastinum: Mediastinal contours appear normal. Heart size is normal. Bones and chest wall: No suspicious bony lesions. Overlying soft tissues appear unremarkable. IMPRESSION: No acute cardiopulmonary abnormality. Dictated by: Adalberto Benito M.D. on 08/30/2021 at 12:55 Approved by: Adalberto Benito M.D. on 08/30/2021 at 12:57
[2021-08-30] MEDS: LACTATED RINGERS 1,000 ML 100 ML IV (10:28)
--- NOTE | 2021-08-30 10:30 | PM.PREOP ---
Pre-operative Note Interval Note History & Physical reviewed/Exam performed by Physician: Yes Changes to H&P: No
[2021-08-30] MEDS: ACETAMINOPHEN 325 MG TABLET 975 MG PO (10:41)
--- NOTE | 2021-08-30 11:24 | SUR.OPER ---
Supine on padded OR bed, head on pillow, right arm padded and tucked at side left arm secured on padded arm boards at <90 degrees abduction, legs uncrossed, safety belt at thigh, tape over blanket over lower legs.
--- NOTE | 2021-08-30 12:08 | P.OP_ITS ---
Operative Date/Time/Diagnoses Date of procedure: 08/30/21 Time of procedure: 12:09 Pre-op diagnosis: colon cancer Post-op diagnosis: same Procedure & Clinicians Procedure: port a cath placement Same procedure as scheduled: Yes Indications: locally advanced colon cancer with need for adjuvant chemotherapy Surgeon: Harjinder Hannah Anesthesia Type: General Operative Notes Findings: tip of the catheter project into the IVC Specimen(s): none sent Estimated Blood Loss (mL): 10 Procedure in detail: Patient was brought to the operating room placed supine on table. Bilateral lower extremity compressive devices were applied. General anesthesia was induced and he was intubated with an LMA. He was then prepped and draped in u sual sterile fashion. Time-out was performed ensure the correct patient procedure necessary equipment within the operating room. He received 2 g of Ancef prior to incision. Under ultrasound guidance the right internal jugular vein was accessed under direct visualization. The guidewire was then threaded through the needle. Its placement was then confirmed using fluoroscopy. The dilator was then placed over the guidewire. The catheter was then inserted through the sheath. Placement was again confirmed with fluoroscopy. A subcutaneous pocket was made in the right chest wall. The tunneler device was used to move the catheter from the neck to the chest pocket. The port was attached after it was primed with heparined saline. The port was tested to ensure that it flushed easily and had good blood return. The port was then secured to the underlying fascia using interupted Ethibond suture. Hemostasis was achieved. The wound was irrigated with sterile saline. The subcutaneous tissues were reapproximated with the 3 0 Vicryl and then skin closed with 4-0 Monocryl. The skin was sealed with Dermabond. Patient tolerated procedure well. The sponge and instrument count at the end operation was correct. Patient emerged from general anesthesia was extubated and taken to the postoperative care unit in stable condition Complications: none Post-operative Condition: stable Disposition: same day surgery
== END 2021-08-30 12:50 | disposition home or self-care (01) ==
PROVIDERS: PCP Family Medicine; Referring Provider Surgery; Visit Provider Surgery
PROC: (CPT 36561; principal; 2021-08-30 10:45)
DX: C18.9 Malignant neoplasm of colon, unspecified (principal); G40.409 Other generalized epilepsy and epileptic syndromes, not intractable, without status epilepticus
CPT/HCPCS: 36561; 71045; 76000; 82962; C1788; J0690; J1100; J1644; J2250; J2405; J2704; J3010

== ENCOUNTER → 2021-09-13 10:07 | Outpatient (CLI) | payer MEDICARE, MEDICAID, SELFPAY ==
[2021-07-26 15:04] VITALS: BMI 33.7
--- NOTE | 2021-09-13 10:09 | DI.RAD.S_ITS ---
PROCEDURE: XR CHEST 2V INDICATIONS: Decreased lung sound Right side TECHNIQUE: 2 views of the chest were acquired. COMPARISON: None. FINDINGS: Surgical changes and devices: Right chest wall central venous port catheter terminates in the mid SVC region. Lungs and pleura: Lungs are clear. No pleural effusions or pneumothorax. Mediastinum: Mediastinal contours are normal. Heart size is normal. Bones and chest wall: No suspicious bony abnormalities. Soft tissues appear unremarkable. IMPRESSION: No acute process demonstrated. Dictated by: Gordo Jones M.D. on 09/13/2021 at 10:45 Approved by: Gordo Jones M.D. on 09/13/2021 at 10:47
== END ==
PROVIDERS: PCP Family Medicine; Referring Provider Internal Medicine Medical Oncology; Visit Provider Internal Medicine Medical Oncology
DX: C18.9 Malignant neoplasm of colon, unspecified (principal); R01.2 Other cardiac sounds
CPT/HCPCS: 71046

== ENCOUNTER → 2021-12-30 14:46 | Outpatient (CLI) | payer MEDICARE, MEDICAID, SELFPAY ==
[2021-07-26 15:04] VITALS: BMI 33.7
[2021-12-30 15:42] LABS: Phenytoin / Dilantin 25.2 ug/mL (10-20)
== END ==
PROVIDERS: PCP Family Medicine; Referring Provider Internal Medicine; Visit Provider Internal Medicine
DX: R56.9 Unspecified convulsions (principal)
CPT/HCPCS: 36415; 80185

== ENCOUNTER → 2022-04-20 10:04 | Outpatient (CLI) | payer MEDICARE, MEDICAID, SELFPAY ==
[2021-07-26 15:04] VITALS: BMI 33.7
[2022-04-20 11:43] LABS: Phenytoin / Dilantin 29.4 ug/mL (10-20)
== END ==
PROVIDERS: PCP Family Medicine; Referring Provider Internal Medicine; Visit Provider Internal Medicine
DX: R56.9 Unspecified convulsions (principal)
CPT/HCPCS: 36415; 80185; 80186

== ENCOUNTER → 2022-05-03 10:14 | Outpatient (CLI) | payer MEDICARE, MEDICAID, SELFPAY ==
[2021-07-26 15:04] VITALS: BMI 33.7
[2022-05-03 11:50] LABS: Phenytoin / Dilantin 22.8 ug/mL (10-20)
== END ==
PROVIDERS: PCP Family Medicine; Referring Provider Internal Medicine; Visit Provider Internal Medicine
DX: R56.9 Unspecified convulsions (principal)
CPT/HCPCS: 36415; 80185

== ENCOUNTER → 2022-05-10 10:10 | Outpatient (CLI) | payer MEDICARE, MEDICAID, SELFPAY ==
[2021-07-26 15:04] VITALS: BMI 33.7
[2022-05-10 11:57] LABS: Phenytoin / Dilantin 19.8 ug/mL (10-20)
== END ==
PROVIDERS: PCP Family Medicine; Referring Provider Internal Medicine; Visit Provider Internal Medicine
DX: R56.9 Unspecified convulsions (principal)
CPT/HCPCS: 36415; 80185

== ENCOUNTER → 2022-07-05 10:52 | Outpatient (CLI) | payer MEDICARE, MEDICAID, SELFPAY ==
[2021-07-26 15:04] VITALS: BMI 33.7
[2022-07-05 14:52] LABS: Phenytoin / Dilantin 23.7 ug/mL (10-20)
== END ==
PROVIDERS: PCP Family Medicine; Referring Provider Internal Medicine; Visit Provider Internal Medicine
DX: R56.9 Unspecified convulsions (principal)
CPT/HCPCS: 36415; 80185; 93005; 93010

== ENCOUNTER → 2022-07-27 09:53 | Outpatient (CLI) | payer MEDICARE, MEDICAID, SELFPAY ==
[2021-07-26 15:04] VITALS: BMI 33.7
[2022-07-27 11:43] LABS: Phenytoin / Dilantin 20.6 ug/mL (10-20)
== END ==
PROVIDERS: PCP Family Medicine; Referring Provider Internal Medicine; Visit Provider Internal Medicine
DX: R56.9 Unspecified convulsions (principal)
CPT/HCPCS: 36415; 80185

== ENCOUNTER → 2022-08-28 11:37 | Outpatient (CLI) | payer MEDICARE, MEDICAID, SELFPAY ==
[2021-07-26 15:04] VITALS: BMI 33.7
[2022-08-28 13:09] LABS: COVID19 -Nasal RAPID Negative (Negative)
== END ==
PROVIDERS: PCP Family Medicine; Visit Provider Surgery
DX: Z20.822 Contact with and (suspected) exposure to COVID-19 (principal); Z01.812 Encounter for preprocedural laboratory examination
CPT/HCPCS: 87635; C9803

== ENCOUNTER 2022-08-29 09:26 | Day surgery (SDC) | payer MEDICARE, MEDICAID, SELFPAY ==
[2021-07-26 15:04] VITALS: BMI 33.7
--- NOTE | 2022-08-29 | PATH_ITS ---
[facility] Accession Number: [id number] . 01 Material submitted: . PART A: colon - ASCENDING COLON . Modifiers: ascending PART B: colon - DESCENDING COLON. Modifiers: descending PART C: colon - ANASTAMOSIS . 01 Diagnosis: A. Ascending Colon, Biopsy: Sessile serrated adenoma in 1 of 2 fragments. Benign lymphoid aggregate, 1 fragment. . B. Descending Colon, Biopsy: Tubular adenoma, 3 fragments. . C. Anastamosis, Biopsy: Hyperplastic colonic mucosa with a benign lymphoid aggregate. Negative for dysplasia or malignancy. [facility] 08/31/2022 1014 Local . 01 Electronically signed: . Prema Rinaldi MD, Pathologist NPI- [id number] . 01 Gross description: . Part A: ASCENDING COLON : Received in formalin are 2 fragment(s) of howell, soft tissue measuring 0.1 x 0.1 x 0.1 cm to 0.3 x 0.3 x 0.3 cm submitted entirely in 1 cassette(s) Part B: DESCENDING COLON: Received in formalin are 3 fragment(s) of howell, soft tissue measuring 0.1 x 0.1 x 0.1 cm to 0.3 x 0.3 x 0.3 cm submitted entirely in 1 cassette(s) Part C: ANASTAMOSIS: Received in formalin are 2 fragment(s) of howell, soft tissue measuring 0.1 x 0.1 x 0.1 cm to 0.4 x 0.3 x 0.2 cm submitted entirely in 1 cassette(s) /HUMBERTO 08/30/2022 1833 Local . 01 Pathologist provided ICD-10: D12.2, D12.4 . 01 CPT . 907466, 603834, [id number] Performed at: 01 [facility] [address] [facility] [place], [place], [place] [id number] MD Greg Gilbert MD Phone: [phone]
[2022-08-29 09:47] VITALS: BP 131/87; PULSE 81; RESP 16; TEMP 36.4; O2SAT 97; BMI 28.5
--- NOTE | 2022-08-29 09:52 | PM.HP.1 ---
History of Present Illness History of Present Illness Date Patient Seen: 08/29/22 Time Patient Seen: 09:52 Chief complaint: Colonoscopy Narrative: 52-year-old man history of stage III colon cancer status post sigmoidectomy and adjuvant chemotherapy. He is here today for screening/surveillance colonoscopy. Last colonoscopy was 1 year ago preop. No current abdominal pain nausea vomiting blood per rectum. Patient History Medical History Hemorrhoid (~02/15/14) Seizure Static encephalopathy Surgical History H/O partial resection of colon (07/26/21) Hx of colonoscopy Hx of oral surgery Family & Social History Family History Father CAD (coronary artery disease) Hypertension Diabetes mellitus Cancer Mother CAD (coronary artery disease) Hypertension Stroke Social History: household members family Tobacco & Substance use: Smoking Status Never smoker alcohol intake never Substance Use Type does not use Meds Home Medications and Allergies Home Medications Medication Instructions Recorded Confirmed Type levetiracetam 1,000 mg tablet 1,000 mg PO TID ##270 01/23/19 08/29/22 Rx (Keppra) primidone 250 mg tablet 250 mg PO TID #270 tabs 01/23/19 08/29/22 Rx phenytoin sodium extended 100 mg See Rx Instructions PO .COMPLEX 03/21/19 08/29/22 Rx capsule (Dilantin Extended) #270 caps zonisamide 100 mg capsule See Rx Instructions PO .COMPLEX 03/21/19 08/29/22 Rx #450 caps cholecalciferol (vitamin D3) 25 25 mcg PO DAILY 05/26/21 08/29/22 History mcg (1,000 unit) capsule multivitamin 1 tab PO DAILY 05/26/21 08/29/22 History triamcinolone acetonide 0.1 % 1 applictn topical BID PRN Rash 07/20/21 08/29/22 History topical cream acetaminophen 325 mg capsule 650 mg PO QID PRN pain #60 caps 08/30/21 08/29/22 Rx (Tylenol) ondansetron 4 mg disintegrating 4 mg PO Q6H #20 tabs 09/06/21 08/29/22 Rx tablet Allergies Allergy/AdvReac Type Severity Reaction Status Date / Time No Known Drug Allergies Allergy Verified 08/29/22 09:38 Exam Narrative Exam Narrative: General adult male alert oriented no acute distress Abdomen soft nontender nondistended Assessment & Plan Assessment and plan (1) Colon cancer: Status: Acute Assessment & Plan narrative: The patient requires surveillance colonoscopy secondary to a history of stage III colon cancer.. Technical details were discussed with the patient and his mother.. Risks, benefits, alternatives explained. Risks including but not limited to myocardial infarction, aspiration, bleeding, pain, missed lesion, incomplete examination, need for further radiographic studies, colonic perforation, and need for major abdominal surgery were discussed. All questions were answered to their satisfaction, and they are in agreement with this plan. Time Spent With Patient Critical Care time: I spent a total of [] minutes of critical care time on this patient's care today; this time is exclusive of procedural time.
[2022-08-29] MEDS: LACTATED RINGERS 1,000 ML 200 ML IV (09:57)
--- NOTE | 2022-08-29 10:22 | PM.OP.COLON ---
Operative Date/Time/Diagnoses Date of procedure: 08/29/22 Time of procedure: 10:22 Pre-op diagnosis: History of colon cancer Post-op diagnosis: same Procedure & Clinicians Study performed: Colonoscopy Same procedure as scheduled: Yes Indications: Stage III colon cancer status post sigmoid colectomy and adjuvant chemotherapy here for 1 year surveillance Surgeon: Harjinder Hannah Procedure Notes Procedure in detail: The history and physical was performed/updated and the patient is ASA class is 3. The procedure was discussed in detail with the patient. Potential risks complications including infection, bleeding, missed diagnosis, perforation, need for surgery, and were explained. Their questions were answered and informed consent was obtained. Patient was brought to the procedure room and placed standard monitoring equipment. The patient's vital signs were monitored continuously throughout the entire procedure. Prior to starting time-out was performed. The patient was placed in the left lateral recumbent position. Procedural sedation was administered by anesthesia. Examination began with a thorough inspection of the perianal area there was no evidence of fissures, fistulae, external hemorrhoids or cutaneous malignancy. The colonoscopy scope was then placed into the anal canal and was advanced to the cecum, which was identified by the ileocecal valve, the appendiceal orifice and the confluence of the taenia. The scope was then slowly withdrawn examining colon thoroughly in all directions, irrigating it of any residual stool. FINDINGS 1. Ascending colon-5 mm polyp removed with biopsy forceps 2. Descending colon 5 mm polyp removed with biopsy forceps 3. Colorectal anastomosis 3 mm polyp removed biopsy forceps The patient tolerated the procedure well. They will be discharged once criteria are met. The prep was of good/excellent quality. The withdrawl time was 12minutes. Specimen(s): other (Polyps from ascending, descending colon and anastomosis) Complications: none Impression: Colonic polyps Post-procedure Plan for aftercare: Follow-up dependent on pathology findings likely 1 year Disposition: same day surgery
[2022-08-29 10:55] VITALS: BP 114/78; PULSE 82; RESP 12; TEMP 36.7; O2SAT 97
[2022-08-29 11:01] VITALS: BP 117/85; PULSE 90; RESP 14; O2SAT 97
[2022-08-29 11:05] VITALS: BP 114/84; PULSE 75; RESP 12; O2SAT 99
[2022-08-29 11:18] VITALS: BP 115/82; PULSE 73; RESP 16; TEMP 36.6; O2SAT 99
== END 2022-08-29 11:50 | disposition home or self-care (01) ==
PROVIDERS: PCP Family Medicine; Referring Provider Surgery; Visit Provider Surgery
PROC: 0DJD8ZZ Inspection of Lower Intestinal Tract, Via Natural or Artificial Opening Endoscopic (ICD-10-PCS; CPT 45378; principal; 2022-08-29 10:15)
DX: Z12.11 Encounter for screening for malignant neoplasm of colon (principal); Z85.038 Personal history of other malignant neoplasm of large intestine; D12.2 Benign neoplasm of ascending colon; D12.4 Benign neoplasm of descending colon
CPT/HCPCS: 45380; J2704; J3010

== ENCOUNTER → 2022-09-29 13:56 | Outpatient (CLI) | payer MEDICARE, MEDICAID, SELFPAY ==
[2021-07-26 15:04] VITALS: BMI 33.7
--- NOTE | 2022-09-29 13:57 | DI.CT.S_ITS ---
PROCEDURE: CT CHEST ABD PEL W CON INDICATIONS: colon cancer monitoring TECHNIQUE: After the administration of oral and intravenous contrast, axial sections acquired from the supraclavicular neck to the pubic symphysis. Coronal and sagittal reformats were performed. For radiation dose reduction, the following was used: automated exposure control, adjustment of mA and/or kV according to patient size. COMPARISON: [facility], CT, CT ABDOMEN PELVIS W CON, 08/04/2021, 10:34. [facility], CT, CT CHEST ABD PEL W CON, 06/23/2021, 10:57. FINDINGS: Image quality: Excellent. CHEST: Lower Neck: No enlarged lymph nodes. Thyroid: There is a 1.5 cm low-density nodule seen involving the right aspect thyroid. Axillae: No enlarged lymph nodes. Chest Wall: There is a right-sided chest port, with the tip near the cavoatrial junction. Incidental note is made of bilateral gynecomastia. Lungs and Airways: No consolidation or suspicious nodules. Pleura: No pneumothorax or pleural effusions. Heart: Heart size is normal. No pericardial effusion. Thoracic Vessels: The aorta and pulmonary arteries demonstrate normal size. Mediastinum and Marla: No enlarged lymph nodes. Esophagus: No wall thickening. No hiatal hernia. ABDOMEN: Liver: No suspicious liver nodules are seen. Gallbladder: Unremarkable. Biliary ducts: Unremarkable. Pancreas: Unremarkable. Spleen: Unremarkable. Adrenal Glands: There is a low-density left adrenal nodule seen that measures up to 3.2 cm. This is similar to the prior examination. No right adrenal nodules are seen. Kidneys and Ureters: Unremarkable. Stomach and Bowel: A Rectal anastomotic staple line can be seen. No local recurrence is identified. There is a moderate amount of stool seen within the colon. No dilated loops of small bowel are seen. No significant gastric abnormality can be seen. Peritoneum: No abnormal intraperitoneal fluid. No free air. Ventral Wall: No hernia. Abdominal Nodes: No retroperitoneal or mesenteric adenopathy by size criteria. The previously seen prominent mesenteric lymph nodes are no longer definitely seen. Vessels: Aorta and inferior vena cava are normal in size. PELVIS: Pelvic Organs: Unremarkable. Bladder: There is a likely urachal remnant seen, with tenting of the superior bladder along the midline, as on series 5, image 49. Pelvic Nodes: No enlarged lymph nodes. Miscellaneous: No inguinal hernias are seen. Bones: Age-appropriate bony degenerative changes are seen. IMPRESSION: There is a rectal anastomotic staple line, without findings of local recurrence. No definite findings of metastatic disease are seen. However, a stable adrenal nodule can be seen, which has been previously defined as an adrenal adenoma. The previously seen prominent mesenteric lymph nodes are no longer definitely seen. A 1.5 cm nodule is seen involving the right thyroid. If clinically appropriate, please consider a follow-up thyroid ultrasound for further evaluation. There is a moderate amount of stool seen within the colon. Please correlate with an underlying history of constipation. Additional findings: Right-sided chest port Gynecomastia Likely urachal remnant, with tenting of the mid superior bladder. Dictated by: Hunter Navarro M.D. on 09/29/2022 at 15:50 Approved by: Hunter Navarro M.D. on 09/29/2022 at 15:56
== END ==
PROVIDERS: PCP Family Medicine; Referring Provider Family Medicine; Visit Provider Family Medicine
DX: C18.9 Malignant neoplasm of colon, unspecified (principal); E04.1 Nontoxic single thyroid nodule; E27.9 Disorder of adrenal gland, unspecified; N62 Hypertrophy of breast; Z98.0 Intestinal bypass and anastomosis status; Z95.828 Presence of other vascular implants and grafts
CPT/HCPCS: 71260; 74177

== ENCOUNTER → 2023-04-13 09:03 | Outpatient (CLI) | payer MEDICARE, MEDICAID, SELFPAY ==
[2021-07-26 15:04] VITALS: BMI 33.7
--- NOTE | 2023-04-13 09:06 | DI.CT.S_ITS ---
PROCEDURE: CT CHEST ABD PEL W CON INDICATIONS: Colon cancer, rapidly rising CEA TECHNIQUE: After the administration of oral and intravenous contrast, axial sections acquired from the supraclavicular neck to the pubic symphysis. Coronal and sagittal reformats were performed. For radiation dose reduction, the following was used: automated exposure control, adjustment of mA and/or kV according to patient size. COMPARISON: [facility], CT, CT CHEST ABD PEL W CON, 06/23/2021, 10:57. [facility], CT, CT CHEST ABD PEL W CON, 09/29/2022, 15:40. FINDINGS: Image quality: Excellent. CHEST: Lower Neck: No enlarged lymph nodes. Thyroid: 2.0 centimeter right thyroid nodule, similar to prior. Axillae: No enlarged lymph nodes. Chest Wall: Unremarkable. Lungs and Airways: No consolidation or suspicious nodules. Few small pulmonary nodules are again seen, best visualized on the MIPS imaging. For example, the 2 millimeter solid nodule in the left lower lobe is unchanged (series 3, image 210). Pleura: No pneumothorax or pleural effusions. Heart: Heart size is normal. No pericardial effusion. Thoracic Vessels: The aorta and pulmonary arteries demonstrate normal size. Mediastinum and Marla: No enlarged lymph nodes. Esophagus: No wall thickening. No hiatal hernia. ABDOMEN: Liver: Stable 4.9 centimeter hemangioma in segment 2 (series 2, image 49). A couple of liver lesions with low attenuation, concerning for metastatic disease. These include: -5.9 centimeter central liver lesion (series 2, image 55). -2.1 centimeter segment 4A/8 liver lesion (series 2, image 52). Gallbladder: Unremarkable. Biliary ducts: Unremarkable. Pancreas: Unremarkable. Spleen: Unremarkable. Adrenal Glands: Stable 3.0 centimeter left adrenal nodule since presentation, presumably benign. Kidneys and Ureters: Unremarkable. Stomach and Bowel: Prior partial colectomy, with surgical anastomosis in the deep pelvis. No evidence of local recurrence along the surgical margin. Peritoneum: No abnormal intraperitoneal fluid. No free air. Ventral Wall: No hernia. Abdominal Nodes: No retroperitoneal or mesenteric adenopathy by size criteria. Vessels: Aorta and inferior vena cava are normal in size. PELVIS: Pelvic Organs: Unremarkable. Bladder: Unremarkable. Pelvic Nodes: No enlarged lymph nodes. Miscellaneous: No inguinal hernias are seen. Bones: Unremarkable. IMPRESSION: 1. A couple of liver metastases, measuring 5.9 centimeter and 2.9 centimeter. 2. Prior partial colectomy, without evidence of local recurrence or jose disease. 3. Stable right thyroid nodule. Consider dedicated thyroid ultrasound. Dictated by: Se Gatica M.D. on 04/13/2023 at 15:14 Approved by: Se Gatica M.D. on 04/13/2023 at 15:24
== END ==
PROVIDERS: PCP Family Medicine; Referring Provider Internal Medicine Hematology & Oncology; Visit Provider Internal Medicine Hematology & Oncology
DX: C18.9 Malignant neoplasm of colon, unspecified (principal); C78.7 Secondary malignant neoplasm of liver and intrahepatic bile duct; R97.0 Elevated carcinoembryonic antigen [CEA]; R91.8 Other nonspecific abnormal finding of lung field; E04.1 Nontoxic single thyroid nodule; E27.9 Disorder of adrenal gland, unspecified; D18.09 Hemangioma of other sites; Z90.49 Acquired absence of other specified parts of digestive tract
CPT/HCPCS: 71260; 74177

== ENCOUNTER → 2023-05-08 11:01 | Outpatient (CLI) | payer MEDICARE, MEDICAID, SELFPAY ==
[2021-07-26 15:04] VITALS: BMI 33.7
[2023-05-08 13:31] LABS: Phenytoin / Dilantin 13.7 ug/mL (10-20)
== END ==
PROVIDERS: PCP Family Medicine; Referring Provider Internal Medicine; Visit Provider Internal Medicine
DX: R56.9 Unspecified convulsions (principal)
CPT/HCPCS: 36415; 80185

== ENCOUNTER 2023-05-25 09:18 | Day surgery (SDC) | payer MEDICARE, MEDICAID, SELFPAY ==
[2021-07-26 15:04] VITALS: BMI 33.7
[2023-05-23 07:28] VITALS: BMI 30.1
--- NOTE | 2023-05-25 | DI.RAD.S_ITS ---
PROCEDURE: XR CHEST 1V INDICATIONS: POST OP TECHNIQUE: One view of the chest was acquired. COMPARISON: [facility], CR, XR CHEST 2V, 09/13/2021, 10:02. FINDINGS: Surgical changes and devices: Is present distal tip projecting over proximal SVC. Lungs and pleura: Linear opacity is present base. Mediastinum: Mediastinal contours appear normal. Heart size is normal. Bones and chest wall: No suspicious bony lesions. Overlying soft tissues appear unremarkable. IMPRESSION: Left Port-A-Cath as above. Linear left basilar opacity likely atelectasis. Dictated by: Monse Larios M.D. on 05/25/2023 at 16:43 Approved by: Monse Larios M.D. on 05/25/2023 at 16:44
[2023-05-25 09:35] VITALS: BP 124/82; PULSE 77; RESP 16; TEMP 36.4; O2SAT 98; BMI 30.1
[2023-05-25] MEDS: LACTATED RINGERS 1,000 ML 100 ML IV (09:52)
--- NOTE | 2023-05-25 11:07 | PM.HP.1 ---
History of Present Illness History of Present Illness Date Patient Seen: 05/25/23 Time Patient Seen: 11:08 Chief complaint: Port-A-Cath Insertion Narrative: Mr. Moran is a 52-year-old man well known to me with a history of colon cancer. He underwent a sigmoid colectomy July 2021 pathology demonstrated pT1N1. He underwent adjuvant chemotherapy and has now unfortunately developed recurrence involving the liver. He is here for Port-A-Cath placement today. [facility] Medical History Hemorrhoid (~02/15/14) Seizure Static encephalopathy Surgical History H/O partial resection of colon (07/26/21) Hx of colonoscopy Hx of oral surgery Family History Father CAD (coronary artery disease) Hypertension Diabetes mellitus Cancer Mother CAD (coronary artery disease) Hypertension Stroke Social History marital status: household members: family Smoking Status: Never smoker alcohol intake: never substance use type: does not use Meds Home Medications and Allergies Home Medications Medication Instructions Recorded Confirmed Type levetiracetam 1,000 mg tablet 1,000 mg PO TID ##270 01/23/19 05/25/23 Rx (Keppra) primidone 250 mg tablet 250 mg PO TID #270 tabs 01/23/19 05/25/23 Rx phenytoin sodium extended 100 mg See Rx Instructions PO .COMPLEX 03/21/19 05/25/23 Rx capsule (Dilantin Extended) #270 caps zonisamide 100 mg capsule See Rx Instructions PO .COMPLEX 03/21/19 05/25/23 Rx #450 caps cholecalciferol (vitamin D3) 25 25 mcg PO DAILY 05/26/21 05/25/23 History mcg (1,000 unit) capsule multivitamin 1 tab PO DAILY 05/26/21 05/25/23 History triamcinolone acetonide 0.1 % 1 applictn topical BID PRN Rash 07/20/21 05/23/23 History topical cream acetaminophen 325 mg capsule 650 mg PO QID PRN pain #60 caps 08/30/21 05/25/23 Rx (Tylenol) Allergies Allergy/AdvReac Type Severity Reaction Status Date / Time No Known Drug Allergies Allergy Verified 05/25/23 09:24 Exam Vital Signs (past 8 hours): - 05/25/23 09:35 Temperature 97.6 F Pulse Rate 77 Respiratory Rate 16 Blood Pressure 124/82 Pulse Oximetry 98 Oxygen Delivery Method Room Air Oxygen Delivery Method Room Air Narrative Exam Narrative: General adult man alert oriented no acute distress Chest nonlabored respiration Abdomen soft nontender nondistended Assessment & Plan Assessment and plan (1) Colon cancer: Status: Acute Assessment & Plan narrative: 52-year-old man with recurrent colon cancer here for Port-A-Cath placement. Overview of the operation was discussed with the patient and his mother. Operative risks including hemorrhage, infection, pneumothorax, embolism discussed. Patient provides his written and verbal consent to proceed.
--- NOTE | 2023-05-25 11:12 | PM.OP.1 ---
Operative Date/Time/Diagnoses Date of procedure: 05/25/23 Time of procedure: 11:12 Pre-op diagnosis: recurrent colon cancer Post-op diagnosis: same Procedure & Clinicians Procedure: port a cath placement with ultrasound guidance Same procedure as scheduled: Yes Indications: 52 y.o man with a history of T1N1 colon cancer sp sigmoid colectomy July 2021 now with liver metastasis. Surgeon: Harjinder Hannah Click Yes if Unassisted: Yes Anesthesia Type: MAC +/- Operative Notes Findings: tip of the catheter projects over the SVC Estimated Blood Loss (mL): 10 Procedure in detail: Patient was brought to the operating room placed supine on table. Bilateral lower extremity compressive devices were applied. General anesthesia was induced and he was intubated with an LMA. He was then prepped and draped in usual sterile fashion. Time-out was performed ensure the correct patient procedure necessary equipment within the operating room. He received 2 g of Ancef prior to incision. Under ultrasound guidance the left internal jugular vein was accessed under direct visualization. The guidewire was then threaded through the needle. Its placement was then confirmed using fluoroscopy. The dilator was then placed over the guidewire. The catheter was then inserted through the sheath. Placement was again confirmed with fluoroscopy. A subcutaneous pocket was made in the right chest wall. The tunneler device was used to move the catheter from the neck to the chest pocket. The port was attached after it was primed with heparined saline. The port was tested to ensure that it flushed easily and had good blood return. The port was then secured to the underlying fascia using interupted 0 Prolene suture. Hemostasis was achieved. The wound was irrigated with sterile saline. The subcutaneous tissues were reapproximated with the 3 0 Vicryl. The skin was sealed with Dermabond. Patient tolerated procedure well. The sponge and instrument count at the end operation was correct. Patient emerged from general anesthesia was extubated and taken to the postoperative care unit in stable condition Complications: none Post-operative Condition: stable Disposition: same day surgery
[2023-05-25] MEDS: CEFAZOLIN 2 GM/100 ML PREMIX 100 ML IV (11:30)
--- NOTE | 2023-05-25 11:45 | SUR.OPER ---
Supine on padded OR bed, head on pillow, arms padded and papoosed, legs uncrossed, safety belt at thigh, tape over blanket over lower legs .
[2023-05-25] MEDS: HEPARIN 5,000 UNIT/ML VIAL 5000 UNIT IV (11:52)
[2023-05-25] MEDS: BUPIVACAINE 0.25% (PF) VIAL 30 ML INJ (11:52)
[2023-05-25 12:19] VITALS: BP 118/82; PULSE 71; RESP 12; TEMP 36.1; O2SAT 96
[2023-05-25 12:24] VITALS: BP 117/88; PULSE 69; RESP 14; O2SAT 97
[2023-05-25 12:29] VITALS: BP 114/84; PULSE 70; RESP 14; O2SAT 97
[2023-05-25 12:34] VITALS: BP 117/82; PULSE 70; RESP 14; TEMP 36.1; O2SAT 99
[2023-05-25 12:50] VITALS: BP 117/82; PULSE 68; RESP 14; TEMP 36.1; O2SAT 98
== END 2023-05-25 13:13 | disposition home or self-care (01) ==
PROVIDERS: PCP Family Medicine; Referring Provider Surgery; Visit Provider Surgery
PROC: (CPT 36561; principal; 2023-05-25 11:00)
DX: C18.9 Malignant neoplasm of colon, unspecified (principal); C78.7 Secondary malignant neoplasm of liver and intrahepatic bile duct; Z90.49 Acquired absence of other specified parts of digestive tract
CPT/HCPCS: 36561; 71045; 76000; J0690; J1644; J2704; J3010

== ENCOUNTER 2023-07-31 12:32 | Day surgery (SDC) | payer MEDICARE, MEDICAID, SELFPAY ==
[2021-07-26 15:04] VITALS: BMI 33.7
[2023-07-31 13:10] VITALS: BP 143/90; PULSE 118; RESP 20; TEMP 38.1; O2SAT 96; BMI 29.2
[2023-07-31] MEDS: LACTATED RINGERS 1,000 ML 42 ML IV (13:20)
--- NOTE | 2023-07-31 13:47 | P.HP_ITS ---
History of Present Illness History of Present Illness Date Patient Seen: 07/31/23 Time Patient Seen: 13:47 Chief complaint: Port-A-Cath Removal Narrative: Vinayak is a 52-year-old man who was diagnosed with colon cancer in 2020. He underwent a low anterior resection by Dr. Hannah. He had 1 positive lymph node and he did receive chemotherapy through a right internal jugular vein Port-A-Cath. That was removed after he completed chemotherapy. This year he was found to have metastases to the liver and a new Port-A-Cath was placed on the left side in May. He did have some drainage from the wound last week and today when he went to the cancer center for an infusion the noted more redness and drainage and had concern for infection. He was sent here for removal. He has a history of a seizure disorder and he has had seizures this morning and last night. [facility] Medical History Hemorrhoid (~02/15/14) Seizure Static encephalopathy Surgical History H/O partial resection of colon (07/26/21) Hx of colonoscopy Hx of oral surgery Family History Father CAD (coronary artery disease) Hypertension Diabetes mellitus Cancer Mother CAD (coronary artery disease) Hypertension Stroke Social History marital status: household members: family Smoking Status: Never smoker alcohol intake: never substance use type: does not use Meds Home Medications and Allergies Home Medications Medication Instructions Recorded Confirmed Type levetiracetam 1,000 mg tablet 1,000 mg PO TID ##270 01/23/19 07/31/23 Rx (Keppra) primidone 250 mg tablet 250 mg PO TID #270 tabs 01/23/19 07/31/23 Rx cholecalciferol (vitamin D3) 25 25 mcg PO DAILY 05/26/21 07/31/23 History mcg (1,000 unit) capsule multivitamin 1 tab PO DAILY 05/26/21 07/31/23 History triamcinolone acetonide 0.1 % 1 applictn topical BID PRN Rash 07/20/21 06/08/23 History topical cream acetaminophen 325 mg capsule 650 mg (2 x 325 mg) PO QID PRN 08/30/21 07/31/23 Rx (Tylenol) pain #60 caps phenytoin sodium extended 100 mg 130 mg PO BID 07/31/23 07/31/23 History capsule (Dilantin Extended) zonisamide 100 mg capsule 100 mg PO DAILY 07/31/23 07/31/23 History Allergies Allergy/AdvReac Type Severity Reaction Status Date / Time No Known Drug Allergies Allergy Verified 07/31/23 12:53 Exam Vital Signs (past 8 hours): - 07/31/23 13:10 Temperature 100.6 F H Pulse Rate 118 H Respiratory Rate 20 Blood Pressure 143/90 H Pulse Oximetry 96 Oxygen Delivery Method Room Air Oxygen Delivery Method Room Air Narrative Exam Narrative: Erythema and moderate drainage from the left pectoral incision Assessment & Plan Assessment and plan (1) Infection involving stitch with abscess: Status: Acute Assessment & Plan narrative: We will draw blood cultures first. We will then proceed to the OR for removal and culture of the infected device. We will leave the wound open with some packing today.
[2023-07-31] MEDS: levETIRAcetam 1,000 MG in SODIUM CHLORIDE 0.9% 100 ML 440 MG IV (14:18)
[2023-07-31] MEDS: VANCOMYCIN 1,500 MG in SODIUM CHLORIDE 0.9% 500 ML 250 MG IV (14:45)
--- NOTE | 2023-07-31 14:53 | SUR.OPER ---
Supine on padded OR bed, head on pillow, arms secured on padded arm boards at <90 degrees abduction, legs uncrossed, safety belt at thigh, tape over blanket over lower legs.
--- NOTE | 2023-07-31 15:00 | PM.OP.1 ---
Operative Date/Time/Diagnoses Date of procedure: 07/31/23 Time of procedure: 15:00 Pre-op diagnosis: Infected Port-A-Cath Post-op diagnosis: same Procedure & Clinicians Procedure: Removal of infected Port-A-Cath Same procedure as scheduled: Yes Surgeon: Abraham Titus Operative Notes Procedure in detail: The patient was brought to the operating room and monitored anesthesia was induced. He was positioned supine on the table. Vancomycin was administered. Time-out was performed. The left chest was prepped and draped in the usual fashion and a time-out was performed. After injection of some local the incision was opened with a scalpel. Cultures were taken. The port was freed and removed. Initially the catheter tip was cut off to be sent but then the decision was made to send the remainder of the device as well. Additional local was injected into the deeper layers of the wound. The wound was then packed with corner of the 4x4s an additional 4x4s were applied over the top. Tape was applied over the 4x4s. EBL: 5 mL Specimens: Culture swabs and device Post-operative Condition: stable Disposition: PACU
[2023-07-31 15:06] VITALS: BP 113/81; PULSE 106; RESP 10; TEMP 36.6; O2SAT 95
[2023-07-31 15:11] VITALS: BP 121/81; PULSE 100; RESP 10; O2SAT 96
[2023-07-31] MEDS: BUPIVACAINE 0.5% (PF) 30 ML, EPINEPHrine 0.15 MG INJ (15:13)
[2023-07-31 15:16] VITALS: BP 110/76; PULSE 102; RESP 13; O2SAT 96
[2023-07-31 15:21] VITALS: BP 101/75; PULSE 99; RESP 17; TEMP 36.4; O2SAT 96
[2023-07-31 15:22] VITALS: BP 116/79; PULSE 100; RESP 15; O2SAT 97
[2023-08-01 11:00] LABS: Acinetobacter calcoa-baumannii Not Detected (Not Detect); Bacteroides fragilis Not Detected (Not Detect); Candida albicans Not Detected (Not Detect); Candida auris Not Detected (Not Detect); Candida glabrata Not Detected (Not Detect); Candida krusei Not Detected (Not Detect); Candida parapsilosis Not Detected (Not Detect); Candida tropicalis Not Detected (Not Detect); Cryptococcus neoformans/gatti Not Detected (Not Detect); Enterobacter cloacae complex Not Detected (Not Detect); Enterobacterales Not Detected (Not Detect); Enterococcus faecalis Not Detected (Not Detect); Enterococcus faecium Not Detected (Not Detect); Haemophilus influenzae Not Detected (Not Detect); Klebsiella aerogenes Not Detected (Not Detect); Listeria monocytogenes Not Detected (Not Detect); Neisseria meningitidis Not Detected (Not Detect); Proteus species Not Detected (Not Detect); Pseudomonas aeruginosa Not Detected (Not Detect); Salmonella species Not Detected (Not Detect); Serratia marcescens Not Detected (Not Detect); Staphylococcus epidermidis Not Detected (Not Detect); Staphylococcus lugdunensis Not Detected (Not Detect); Staphylococcus species Detected (Not Detect); Stenotrophomonas maltophilia Not Detected (Not Detect); Streptococcus agalactiae (Gr B Not Detected (Not Detect); Streptococcus pneumonia Not Detected (Not Detect); Streptococcus pyogenes (Gr A) Not Detected (Not Detect); Streptococcus species Not Detected (Not Detect); mecA/C and MREJ (MRSA) Resista Not Detected (Not Detect)
== END 2023-07-31 15:44 | disposition home or self-care (01) ==
PROVIDERS: PCP Family Medicine; Referring Provider Surgery; Visit Provider Surgery
PROC: (CPT 36590; principal; 2023-07-31 13:45)
DX: T81.41XA Infection following a procedure, superficial incisional surgical site, initial encounter (principal); Z95.828 Presence of other vascular implants and grafts; Z45.2 Encounter for adjustment and management of vascular access device
CPT/HCPCS: 36590; 36415; 87040; 87070; 87075; 87077; 87147; 87154; 87186; 87205; J0171; J1100; J1885; J1953; J2405; J2704; J3010

== ENCOUNTER → 2023-08-11 13:31 | Outpatient (ROUT) | payer MEDICARE, MEDICAID, SELFPAY ==
[2021-07-26 15:04] VITALS: BMI 33.7
[2023-08-11 13:39] LABS: Add Manual Diff / Slide Review NO; Basophils Absolute Auto 0 /uL (0-100); Basophils Percent Auto 0.5 % (0-2); Eosinophils Absolute Auto 100 /uL (0-450); Eosinophils Percent Auto 1.3 % (2-4); Hematocrit 36.7 % (41-53); Hemoglobin 12.4 g/dL (13.5-17.5); Lymphocytes Absolute Auto 2000 /uL (1100-4500); Lymphocytes Percent Auto 36.5 % (25-40); Mean Corpuscular HGB Conc 33.8 % (30-36); Mean Corpuscular Hemoglobin 32.9 PG (26-34); Mean Corpuscular Volume 97.3 fL (80-100); Monocytes Absolute Auto 500 /uL (0-900); Monocytes Percent Auto 9.6 % (3-14); Neutrophils Absolute Auto 2800 /uL (1500-7000); Neutrophils Percent Auto 52.1 % (50-75); Platelet Count 286 X10^3/uL (150-400); Red Blood Cell Count 3.77 X10^6/uL (4.5-5.9); Red Cell Distribution Width 16.4 % (11.6-14.8); White Blood Cell Count 5.4 X10^3/uL (4.5-11.0)
[2023-08-11 13:51] LABS: Alanine Aminotransferase 16 IU/L (<50); Albumin 3.6 g/dL (3.5-5.0); Albumin Globulin Ratio 1.1 (1.0-2.8); Alkaline Phosphatase 93 U/L (38-126); Aspartate Aminotransferase 21 IU/L (17-59); BUN Creatinine Ratio 14.5 (6-22); Bilirubin Total 0.4 mg/dL (0.2-1.3); Blood Urea Nitrogen 9 mg/dL (9-20); Calcium 8.9 mg/dL (8.4-10.2); Carbon Dioxide 25 mmol/L (22-32); Chloride 107 mmol/L (98-107); Estimated Glomerular Filt Rate > 60 mL/min (>60); Globulin 3.4 g/dL (1.7-4.1); Glucose 106 mg/dL (70-100); HEMOLYSIS < 15 (0-50); Potassium 3.9 mmol/L (3.4-5.1); Sodium 140 mmol/L (137-145)
== END ==
PROVIDERS: PCP Family Medicine; Visit Provider Family Medicine
DX: T80.211A Bloodstream infection due to central venous catheter, initial encounter (principal); B95.61 Methicillin susceptible Staphylococcus aureus infection as the cause of diseases classified elsewhere
CPT/HCPCS: 80053; 85025

== ENCOUNTER → 2023-08-18 13:02 | Outpatient (ROUT) | payer MEDICARE, MEDICAID, SELFPAY ==
[2021-07-26 15:04] VITALS: BMI 33.7
[2023-08-18 13:59] LABS: Alanine Aminotransferase 15 IU/L (<50); Albumin 3.7 g/dL (3.5-5.0); Albumin Globulin Ratio 1.1 (1.0-2.8); Alkaline Phosphatase 96 U/L (38-126); Aspartate Aminotransferase 22 IU/L (17-59); BUN Creatinine Ratio 16.7 (6-22); Bilirubin Total 0.4 mg/dL (0.2-1.3); Blood Urea Nitrogen 11 mg/dL (9-20); Carbon Dioxide 25 mmol/L (22-32); Chloride 106 mmol/L (98-107); Estimated Glomerular Filt Rate > 60 mL/min (>60); Globulin 3.5 g/dL (1.7-4.1); Glucose 143 mg/dL (70-100); HEMOLYSIS < 15 (0-50); Potassium 4.2 mmol/L (3.4-5.1); Sodium 138 mmol/L (137-145); Total Protein 7.2 g/dL (6.3-8.2)
== END ==
PROVIDERS: PCP Family Medicine; Visit Provider Internal Medicine Infectious Disease
DX: T80.211A Bloodstream infection due to central venous catheter, initial encounter (principal); B95.61 Methicillin susceptible Staphylococcus aureus infection as the cause of diseases classified elsewhere
CPT/HCPCS: 80053

== ENCOUNTER → 2023-08-20 11:39 | Outpatient (ROUT) | payer MEDICARE, MEDICAID, SELFPAY ==
[2021-07-26 15:04] VITALS: BMI 33.7
[2023-08-20 11:50] LABS: Add Manual Diff / Slide Review NO; Basophils Absolute Auto 0 /uL (0-100); Basophils Percent Auto 0.4 % (0-2); Eosinophils Absolute Auto 100 /uL (0-450); Eosinophils Percent Auto 1.5 % (2-4); Hematocrit 37.7 % (41-53); Hemoglobin 12.7 g/dL (13.5-17.5); Lymphocytes Absolute Auto 1500 /uL (1100-4500); Lymphocytes Percent Auto 30.9 % (25-40); Mean Corpuscular HGB Conc 33.7 % (30-36); Mean Corpuscular Hemoglobin 33.2 PG (26-34); Mean Corpuscular Volume 98.8 fL (80-100); Monocytes Absolute Auto 300 /uL (0-900); Monocytes Percent Auto 6.8 % (3-14); Neutrophils Absolute Auto 3000 /uL (1500-7000); Neutrophils Percent Auto 60.4 % (50-75); Platelet Count 262 X10^3/uL (150-400); Red Blood Cell Count 3.81 X10^6/uL (4.5-5.9); Red Cell Distribution Width 15.4 % (11.6-14.8); White Blood Cell Count 4.9 X10^3/uL (4.5-11.0)
== END ==
PROVIDERS: PCP Family Medicine; Visit Provider Internal Medicine Infectious Disease
DX: T80.211A Bloodstream infection due to central venous catheter, initial encounter (principal); B95.61 Methicillin susceptible Staphylococcus aureus infection as the cause of diseases classified elsewhere
CPT/HCPCS: 85025

== ENCOUNTER → 2023-08-24 12:11 | Outpatient (ROUT) | payer MEDICARE, MEDICAID, SELFPAY ==
[2021-07-26 15:04] VITALS: BMI 33.7
[2023-08-24 12:21] LABS: Add Manual Diff / Slide Review NO; Basophils Absolute Auto 0 /uL (0-100); Basophils Percent Auto 0.6 % (0-2); Eosinophils Absolute Auto 100 /uL (0-450); Eosinophils Percent Auto 2.1 % (2-4); Hematocrit 39.5 % (41-53); Hemoglobin 13.1 g/dL (13.5-17.5); Lymphocytes Absolute Auto 1100 /uL (1100-4500); Mean Corpuscular HGB Conc 33.2 % (30-36); Mean Corpuscular Hemoglobin 33.1 PG (26-34); Mean Corpuscular Volume 99.7 fL (80-100); Monocytes Absolute Auto 300 /uL (0-900); Monocytes Percent Auto 6.9 % (3-14); Neutrophils Absolute Auto 3300 /uL (1500-7000); Neutrophils Percent Auto 67.4 % (50-75); Platelet Count 264 X10^3/uL (150-400); Red Blood Cell Count 3.97 X10^6/uL (4.5-5.9); Red Cell Distribution Width 15.4 % (11.6-14.8); White Blood Cell Count 4.9 X10^3/uL (4.5-11.0)
[2023-08-24 12:49] LABS: Alanine Aminotransferase 15 IU/L (<50); Albumin 3.9 g/dL (3.5-5.0); Albumin Globulin Ratio 1.2 (1.0-2.8); Alkaline Phosphatase 104 U/L (38-126); Aspartate Aminotransferase 24 IU/L (17-59); Bilirubin Total 0.5 mg/dL (0.2-1.3); Blood Urea Nitrogen 11 mg/dL (9-20); Carbon Dioxide 24 mmol/L (22-32); Chloride 107 mmol/L (98-107); Estimated Glomerular Filt Rate > 60 mL/min (>60); Globulin 3.3 g/dL (1.7-4.1); Glucose 137 mg/dL (70-100); HEMOLYSIS < 15 (0-50); Potassium 4.1 mmol/L (3.4-5.1); Sodium 138 mmol/L (137-145); Total Protein 7.2 g/dL (6.3-8.2)
== END ==
PROVIDERS: PCP Family Medicine; Visit Provider Family Medicine
DX: T80.211A Bloodstream infection due to central venous catheter, initial encounter (principal); B95.61 Methicillin susceptible Staphylococcus aureus infection as the cause of diseases classified elsewhere
CPT/HCPCS: 80053; 85025

== ENCOUNTER → 2023-09-01 13:09 | Outpatient (ROUT) | payer MEDICARE, MEDICAID, SELFPAY ==
[2021-07-26 15:04] VITALS: BMI 33.7
[2023-09-01 13:28] LABS: Add Manual Diff / Slide Review NO; Basophils Absolute Auto 0 /uL (0-100); Basophils Percent Auto 0.5 % (0-2); Eosinophils Absolute Auto 200 /uL (0-450); Eosinophils Percent Auto 4.5 % (2-4); Hematocrit 38.6 % (41-53); Hemoglobin 13.1 g/dL (13.5-17.5); Lymphocytes Absolute Auto 1300 /uL (1100-4500); Lymphocytes Percent Auto 28.4 % (25-40); Mean Corpuscular HGB Conc 33.9 % (30-36); Mean Corpuscular Hemoglobin 33.3 PG (26-34); Mean Corpuscular Volume 98.2 fL (80-100); Monocytes Absolute Auto 400 /uL (0-900); Monocytes Percent Auto 8.3 % (3-14); Neutrophils Absolute Auto 2600 /uL (1500-7000); Neutrophils Percent Auto 58.3 % (50-75); Platelet Count 216 X10^3/uL (150-400); Red Blood Cell Count 3.93 X10^6/uL (4.5-5.9); Red Cell Distribution Width 14.9 % (11.6-14.8); White Blood Cell Count 4.4 X10^3/uL (4.5-11.0)
[2023-09-01 13:53] LABS: Alanine Aminotransferase 15 IU/L (<50); Albumin 3.8 g/dL (3.5-5.0); Albumin Globulin Ratio 1.2 (1.0-2.8); Alkaline Phosphatase 96 U/L (38-126); Aspartate Aminotransferase 25 IU/L (17-59); BUN Creatinine Ratio 18.6 (6-22); Bilirubin Total 0.4 mg/dL (0.2-1.3); Blood Urea Nitrogen 11 mg/dL (9-20); Calcium 9.1 mg/dL (8.4-10.2); Carbon Dioxide 24 mmol/L (22-32); Chloride 107 mmol/L (98-107); Estimated Glomerular Filt Rate > 60 mL/min (>60); Globulin 3.2 g/dL (1.7-4.1); Glucose 134 mg/dL (70-100); HEMOLYSIS < 15 (0-50); Potassium 4.1 mmol/L (3.4-5.1); Sodium 138 mmol/L (137-145)
== END ==
PROVIDERS: PCP Family Medicine; Visit Provider Internal Medicine Infectious Disease
DX: T80.211A Bloodstream infection due to central venous catheter, initial encounter (principal); B95.61 Methicillin susceptible Staphylococcus aureus infection as the cause of diseases classified elsewhere
CPT/HCPCS: 80053; 85025

== ENCOUNTER → 2023-10-04 13:18 | Outpatient (CLI) | payer MEDICARE, MEDICAID, SELFPAY ==
[2021-07-26 15:04] VITALS: BMI 33.7
[2023-10-04 14:00] LABS: Add Manual Diff / Slide Review NO; Basophils Absolute Auto 0 /uL (0-100); Basophils Percent Auto 0.3 % (0-2); Eosinophils Absolute Auto 100 /uL (0-450); Eosinophils Percent Auto 2.6 % (2-4); Hematocrit 41.8 % (41-53); Lymphocytes Absolute Auto 1600 /uL (1100-4500); Lymphocytes Percent Auto 40.9 % (25-40); Mean Corpuscular HGB Conc 33.5 % (30-36); Mean Corpuscular Volume 98.4 fL (80-100); Monocytes Absolute Auto 500 /uL (0-900); Monocytes Percent Auto 11.3 % (3-14); Neutrophils Absolute Auto 1800 /uL (1500-7000); Neutrophils Percent Auto 44.9 % (50-75); Platelet Count 226 X10^3/uL (150-400); Red Blood Cell Count 4.25 X10^6/uL (4.5-5.9); Red Cell Distribution Width 13.5 % (11.6-14.8)
[2023-10-04 14:08] LABS: Hemoglobin A1C% w Est Avg Glu 4.8 % (4.0-6.0)
== END ==
LOC: LAB 13:21
PROVIDERS: PCP Family Medicine; Referring Provider Physician Assistant Medical; Visit Provider Surgery
DX: R56.9 Unspecified convulsions (principal); R73.01 Impaired fasting glucose
CPT/HCPCS: 36415; 83036; 85025; 87040

== ENCOUNTER 2023-10-05 13:54 | Day surgery (SDC) | payer MEDICARE, MEDICAID, SELFPAY ==
[2021-07-26 15:04] VITALS: BMI 33.7
[2023-10-02 10:46] VITALS: BMI 30.1
--- NOTE | 2023-10-05 | DI.RAD.S_ITS ---
PROCEDURE: XR CHEST 1V INDICATIONS: PORT A CATH PLACEMENT TECHNIQUE: One view of the chest was acquired. COMPARISON: [facility], , XR CHEST 1V, 05/25/2023, 12:15. FINDINGS: A catheter is projected over the expected course of the right internal jugular vein. The tip is projected over the mid SVC. IMPRESSION: Catheter tip projected over the mid SVC on this single spot fluoroscopic image. Dictated by: Renita Vance M.D. on 10/05/2023 at 16:30 Approved by: Renita Vance M.D. on 10/05/2023 at 16:31
[2023-10-05 14:22] VITALS: BP 128/83; PULSE 93; RESP 18; TEMP 36.8; O2SAT 98; BMI 30.1
[2023-10-05] MEDS: LACTATED RINGERS 1,000 ML 21 ML IV (14:41)
--- NOTE | 2023-10-05 14:48 | PM.HP.1 ---
History of Present Illness History of Present Illness Date Patient Seen: 10/05/23 Time Patient Seen: 14:48 Chief complaint: Port-A-Cath Insertion Narrative: 53-year-old man history of colon cancer here for Port-A-Cath placement. Currently on chemotherapy PICC line recently removed and he requires central venous access. History of Port-A-Cath x2. PFSH Medical History Colon cancer metastasized to liver IFG (impaired fasting glucose) Static encephalopathy Seizure Hemorrhoid (~02/15/14) Surgical History History of removal of Port-a-Cath (07/31/23) History of surgery (05/25/23) H/O partial resection of colon (07/26/21) Hx of colonoscopy Hx of oral surgery Family History Father CAD (coronary artery disease) Hypertension Diabetes mellitus Cancer Mother CAD (coronary artery disease) Hypertension Stroke Social History marital status: household members: family Smoking Status: Never smoker alcohol intake: never substance use type: does not use Meds Home Medications and Allergies Home Medications Medication Instructions Recorded Confirmed Type levetiracetam 1,000 mg tablet 1,000 mg PO TID ##270 01/23/19 10/05/23 Rx (Keppra) primidone 250 mg tablet 250 mg PO TID #270 tabs 01/23/19 10/05/23 Rx cholecalciferol (vitamin D3) 25 25 mcg PO DAILY 05/26/21 10/05/23 History mcg (1,000 unit) capsule multivitamin 1 tab PO DAILY 05/26/21 10/05/23 History triamcinolone acetonide 0.1 % 1 applictn topical BID PRN Rash 07/20/21 10/05/23 History topical cream acetaminophen 325 mg capsule 650 mg (2 x 325 mg) PO QID PRN 08/30/21 10/05/23 Rx (Tylenol) pain #60 caps amoxicillin 500 mg-potassium 1 tab PO Q12H #14 tabs 11/07/23 01/12/24 Rx clavulanate 125 mg tablet (Augmentin) phenytoin sodium extended 100 mg 130 mg PO BID 07/31/23 10/05/23 History capsule (Dilantin Extended) zonisamide 100 mg capsule 100 mg PO DAILY 07/31/23 10/05/23 History Allergies Allergy/AdvReac Type Severity Reaction Status Date / Time No Known Drug Allergies Allergy Verified 10/05/23 14:44 Exam Vital Signs (past 8 hours): - 10/05/23 14:22 Temperature 98.2 F Pulse Rate 93 H Respiratory Rate 18 Blood Pressure 128/83 Pulse Oximetry 98 Oxygen Delivery Method Room Air Oxygen Delivery Method Room Air Narrative Exam Narrative: General adult man alert oriented no acute distress Chest nonlabored respiration Extremities warm well perfused Assessment & Plan Assessment and plan (1) Colon cancer: Qualifiers: Colon location: unspecified part of colon Qualified Code(s): C18.9 - Malignant neoplasm of colon, unspecified Status: Acute Assessment & Plan narrative: 53-year-old man history of colon cancer here for Port-A-Cath placement. Overview of the procedure discussed. Procedural risks including hemorrhage, infection, pneumothorax, embolism were reviewed. Questions have been answered and he is in agreement with this plan. Provides his written and verbal consent to proceed.
--- NOTE | 2023-10-05 15:18 | SUR.OPER ---
Supine on padded OR bed, head on pillow, arms secured on padded arm boards at <90 degrees abduction, legs uncrossed, safety belt at thigh, tape over blanket over lower legs.
[2023-10-05] MEDS: CEFAZOLIN 2 GM/100 ML PREMIX 100 ML IV (15:26)
[2023-10-05] MEDS: BUPIVACAINE 0.25% (PF) VIAL 30 ML INJ (15:52)
[2023-10-05] MEDS: HEPARIN 5,000 UNIT, SODIUM CHLORIDE 0.9% 50 ML IV (15:56)
--- NOTE | 2023-10-05 16:26 | DI.RAD.S_ITS ---
PROCEDURE: XR CHEST 1V INDICATIONS: status post portacath placement TECHNIQUE: One view of the chest was acquired. COMPARISON: [facility], CR, XR CHEST 1V, 10/05/2023, 15:53. [facility], CR, XR CHEST 1V, 05/25/2023, 12:15. FINDINGS: Surgical changes and devices: There is a right-sided central line seen, with the tip overlying the mid aspect of the superior vena cava, 3 cm above the cavoatrial junction. Lungs and pleura: Lungs are clear. No pleural effusions or pneumothorax. Mediastinum: Mediastinal contours appear normal. Heart size is normal. Bones and chest wall: No suspicious bony lesions. Overlying soft tissues appear unremarkable. IMPRESSION: The tip of the right-sided chest port can be seen overlying the mid superior vena cava. Dictated by: Hunter Navarro M.D. on 10/05/2023 at 15:48 Approved by: Hunter Navarro M.D. on 10/05/2023 at 15:49
[2023-10-05 16:29] VITALS: BP 139/99; PULSE 88; RESP 16; TEMP 36.7; O2SAT 96
[2023-10-05 16:34] VITALS: BP 138/78; PULSE 90; RESP 16; O2SAT 99
[2023-10-05 16:39] VITALS: BP 140/70; PULSE 88; RESP 16; TEMP 36.8; O2SAT 100
--- NOTE | 2023-10-05 16:39 | P.OP_ITS ---
Operative Date/Time/Diagnoses Date of procedure: 10/05/23 Time of procedure: 16:39 Pre-op diagnosis: Colon cancer Post-op diagnosis: same Procedure & Clinicians Procedure: Port-A-Cath placement with ultrasound guidance Same procedure as scheduled: Yes Indications: Colon cancer Central venous access Surgeon: Harjinder Hannah Click Yes if Unassisted: Yes Anesthesia Type: General Operative Notes Findings: Port flushes and draws easily X-ray demonstrates the tip of the catheter within the SVC no evidence of pneumothorax on my read Estimated Blood Loss (mL): 20 Procedure in detail: Patient was brought to the operating room placed supine on table. Bilateral lower extremity compressive devices were applied. General anesthesia was induced and he was intubated with an LMA. He was then prepped and draped in usual sterile fashion. Time-out was performed ensure the correct patient procedure necessary equipment within the operating room. He received 2 g of Ancef prior to incision. Under ultrasound guidance the right internal jugular vein was accessed under direct visualization. The guidewire was then threaded through the needle. Its placement was then confirmed using fluoroscopy. The dilator was then placed over the guidewire. The catheter was then inserted through the sheath. Placement was again confirmed with fluoroscopy. A subcutaneous pocket was made in the right chest wall. The tunneler device was used to move the catheter from the neck to the chest pocket. The port was attached after it was primed with heparined saline. The port was tested to ensure that it flushed easily and had good blood return. Hemostasis was achieved. The wound was irrigated with sterile saline. The subcutaneous tiss ues were reapproximated with the 3 0 Vicryl and then skin closed with 4-0 Monocryl. The skin was sealed with Dermabond. Patient tolerated procedure well. The sponge and instrument count at the end operation was correct. Patient emerged from general anesthesia was extubated and taken to the postoperative care unit in stable condition Complications: none Post-operative Condition: stable Disposition: same day surgery
[2023-10-05 16:40] VITALS: BP 122/74; PULSE 77; RESP 16; O2SAT 98
[2023-10-05 16:49] VITALS: BP 144/74; PULSE 88; RESP 16; TEMP 36.7; O2SAT 99
== END 2023-10-05 17:01 | disposition home or self-care (01) ==
PROVIDERS: PCP Family Medicine; Referring Provider Surgery; Visit Provider Surgery
PROC: (CPT 36561; principal; 2023-10-05 15:30)
DX: C18.9 Malignant neoplasm of colon, unspecified (principal)
CPT/HCPCS: 36561; 71045; 76000; C1788; J0690; J1644; J2250; J2704; J3010

== ENCOUNTER → 2023-10-09 09:57 | Outpatient (CLI) | payer MEDICARE, MEDICAID, SELFPAY ==
[2021-07-26 15:04] VITALS: BMI 33.7
--- NOTE | 2023-10-09 11:18 | DI.CT.S_ITS ---
PROCEDURE: CT CHEST ABD PEL W CON INDICATIONS: COLON CANCER TECHNIQUE: After the administration of intravenous contrast, 5 mm thick sections acquired from the lung apices to the symphysis. 5 mm coronal and sagittal reformats were performed, with additional 7 mm MIP reformats through the lungs. For radiation dose reduction, the following was used: automated exposure control, adjustment of mA and/or kV according to patient size. COMPARISON: [facility], CT, CT CHEST ABD PEL W CON, 04/13/2023, 10:59. FINDINGS: Image quality: Diagnostic Lungs and pleura: No basal effusions. Scattered scarring and atelectasis. A small nodular area at the right costophrenic angle (3/265), is new, possibly atelectasis. Mediastinum, heart, and esophagus: No hiatal hernia. Normal heart size. A right port catheter terminates at the cavoatrial junction. There is no pathologic lymphadenopathy by size criteria. Chest wall and thyroid: Edema surrounding the right port, probably postprocedural. Right thyroid nodule again seen. Liver: Far left lobe hemangioma again seen. Liver metastasis near the hepatic hilum is slightly decreased 5.4 x 3.8 centimeters, previously 6 x 4.8 centimeters. The adjacent satellite lesion is not discretely seen separate from this primary lesion. This surrounds the IVC, without clear intraluminal component Gallbladder and biliary system: Unremarkable, nondilated Pancreas: No ductal dilation Spleen: Nonenlarged Adrenals: Stable left adrenal nodule measuring 2.9 centimeters. Kidneys: No solid mass or hydronephrosis Vessels and lymph nodes: No abdominal aortic aneurysm. The main portal vein is patent. No pathologic lymph nodes by size criteria. Bowel and peritoneum: No evidence of small bowel obstruction, or pathologic ascites. Colorectal suture lines. Body wall: There are postsurgical changes Pelvis: Focal thickening and scarring again seen at the dome of the bladder. Under distended bladder is not well evaluated on this study. The prostate is also not well evaluated. Bones: Degenerative changes, no acute or suspicious abnormality. IMPRESSION: Hilar liver metastasis is slightly decreased in size. The adjacent satellite nodule appears to contiguous with this lesion. Small pulmonary nodular area at the right costophrenic angle, possibly atelectasis. Attention on follow-up. Other findings as above. Dictated by: Cliff Estrella M.D. on 10/09/2023 at 14:27 Approved by: Cliff Estrella M.D. on 10/09/2023 at 14:36
== END ==
LOC: CT 09:58
PROVIDERS: PCP Family Medicine; Referring Provider Internal Medicine Hematology & Oncology; Visit Provider Internal Medicine Hematology & Oncology
DX: C18.8 Malignant neoplasm of overlapping sites of colon (principal); C78.7 Secondary malignant neoplasm of liver and intrahepatic bile duct; D18.09 Hemangioma of other sites; E27.9 Disorder of adrenal gland, unspecified
CPT/HCPCS: 71260; 74177; Q9967

== ENCOUNTER → 2023-10-29 16:56 | Outpatient (CLI) | payer MEDICARE, MEDICAID, SELFPAY ==
[2021-07-26 15:04] VITALS: BMI 33.7
--- NOTE | 2023-10-29 16:59 | DI.RAD.S_ITS ---
PROCEDURE: XR ANKLE RT MIN 3V INDICATIONS: Right ankle pain TECHNIQUE: 3 views of the ankle were acquired. COMPARISON: None. FINDINGS: Bones: No fractures or dislocations. Ankle mortise is normally aligned. No suspicious bony lesions. Soft tissues: No tibiotalar joint effusion. Achilles tendon appears normal. IMPRESSION: No acute bony abnormality or significant effusion. Dictated by: Carlin Montenegro M.D. on 10/29/2023 at 17:32 Approved by: Carlin Montenegro M.D. on 10/29/2023 at 17:32
== END ==
LOC: RAD 16:58
PROVIDERS: PCP Family Medicine; Referring Provider Registered Nurse; Visit Provider Registered Nurse
DX: M25.571 Pain in right ankle and joints of right foot (principal)
CPT/HCPCS: 73610

== ENCOUNTER → 2023-11-08 14:25 | Outpatient (CLI) | payer MEDICARE, MEDICAID, SELFPAY ==
[2021-07-26 15:04] VITALS: BMI 33.7
--- NOTE | 2023-11-08 14:26 | DI.RAD.S_ITS ---
PROCEDURE: XR ANKLE RT MIN 3V INDICATIONS: pain/swelling medial ankle, recently had two more falls TECHNIQUE: 3 views of the ankle were acquired. COMPARISON: [facility], CR, XR ANKLE RT MIN 3V, 10/29/2023, 17:03. FINDINGS: Bones: There is a nondisplaced fracture involving the posterior malleolus. Ankle mortise appears intact. Remainder of the visualized osseous structures appear intact. Soft tissues: No tibiotalar joint effusion. Achilles tendon appears normal. Persistent soft tissue swelling of the medial lateral malleolus. IMPRESSION: Nondisplaced posterior malleolar fracture. Dictated by: Bahamn Cordova M.D. on 11/08/2023 at 20:25 Approved by: Bahman Cordova M.D. on 11/08/2023 at 20:28
== END ==
PROVIDERS: PCP Family Medicine; Referring Provider Physician Assistant; Visit Provider Physician Assistant
DX: S82.891A Other fracture of right lower leg, initial encounter for closed fracture (principal); M25.571 Pain in right ankle and joints of right foot; X58.XXXA Exposure to other specified factors, initial encounter
CPT/HCPCS: 73610

== ENCOUNTER → 2024-02-08 13:25 | Outpatient (CLI) | payer MEDICARE, MEDICAID, SELFPAY ==
[2021-07-26 15:04] VITALS: BMI 33.7
--- NOTE | 2024-02-08 13:28 | DI.MRI.S_ITS ---
PROCEDURE: MR ABDOMEN WO/W CON INDICATIONS: Secondary malignant neoplasm of liver TECHNIQUE: Coronal HASTE, axial 2D FLASH in- and [id number]; axial breath-hold T2 FSE. Dynamic axial VIBE during the administration of contrast; post-contrast coronal VIBE or 2D FLASH with fat saturation from the hepatic dome to the iliac crests. Optional diffusion weighted imaging and ADC may be performed. COMPARISON: [facility], CT, CT CHEST ABD PEL W CON, 04/13/2023, 10:59. [facility], CT, CT CHEST ABD PEL W CON, 10/09/2023, 11:21. FINDINGS: Image quality: Decreased due to motion on several sequences.. Lung bases: Unremarkable. Liver: There is an exophytic hemangioma along the lateral left hepatic lobe measuring 4.8 cm. A mildly T2 hyperintense lobulated lesion centrally in the liver demonstrates an indistinct margin and indistinct, but mainly peripheral enhancement. This measures roughly 4.9 x 4.5 cm on axial imaging, series 13, image 48. No retention of contrast on delayed phase imaging. A small ovoid focus in the medial aspect of segment seven, series 21, image 67 was indistinct on the prior exam. No definite arterial enhancement. There is hypoenhancement on delayed phase imaging. Gallbladder: Normal gallbladder without stones or wall thickening. Biliary ducts: No biliary dilation. Pancreas: No ductal dilation. Spleen: Size is within normal limits. Adrenal Glands: 3.2 cm circumscribed left adrenal mass with signal loss on T1 out of phase imaging. No new right adrenal nodules. Kidneys and Ureters: No hydronephrosis. No solid mass. No complex renal cystic lesion which requires follow up. Stomach and Bowel: Stomach and visible bowel loops are within normal limits. Peritoneum: No free intraperitoneal fluid. Ventral Wall: No hernia. Abdominal Nodes: Focus of restricted diffusion just to the right of the gallbladder is presumably a small lymph node. No bulky adenopathy seen. This has not significantly changed. Vessels: Aorta and inferior vena cava are normal in size. Bones: No aggressive osseous abnormality. IMPRESSION: Given motion, there is suboptimal imaging of the liver lesions for accurate measurement. Recommend three-phase liver CT for future evaluation. The central hepatic lesion has slightly decreased in size compared to the most recent prior exam. The medial liver lesion was not well seen previously. Stable left adrenal mass. Dictated by: Sandra Miranda M.D. on 02/08/2024 at 18:34 Approved by: Sandra Miranda M.D. on 02/10/2024 at 12:51
== END ==
PROVIDERS: PCP Family Medicine; Referring Provider Internal Medicine Hematology & Oncology; Visit Provider Internal Medicine Hematology & Oncology
DX: C18.9 Malignant neoplasm of colon, unspecified (principal); C78.7 Secondary malignant neoplasm of liver and intrahepatic bile duct; E27.9 Disorder of adrenal gland, unspecified; D18.09 Hemangioma of other sites
CPT/HCPCS: 74183; A9579

== ENCOUNTER → 2024-02-19 09:58 | Outpatient (CLI) | payer MEDICARE, MEDICAID, SELFPAY ==
[2021-07-26 15:04] VITALS: BMI 33.7
--- NOTE | 2024-02-19 10:01 | DI.CT.S_ITS ---
PROCEDURE: CT CHEST ABD PEL WWO CON INDICATIONS: Malignant neoplasm of colon, unspecified TECHNIQUE: Noncontrast CT of the chest, abdomen and pelvis was acquired. After the administration of intravenous contrast, postcontrast images of the chest, abdomen and pelvis or acquired in the portal venous phase. Postcontrast arterial and delayed phases were acquired of the pancreas. For radiation dose reduction, the following was used: automated exposure control, adjustment of mA and/or kV according to patient size. COMPARISON: [facility], CT, CT ABDOMEN PELVIS W CON, 08/04/2021, 10:34. [facility], CT, CT CHEST ABD PEL W CON, 10/09/2023, 11:21. [facility], MR, MR ABDOMEN WO/W CON, 02/08/2024, 15:24. FINDINGS: Image quality: Good. Lungs and pleura: No mass or significant pulmonary nodules. No acute airspace opacity. Minimal opacity at the right lung base is decreased. No pleural effusion. No pneumothorax. Mediastinum and heart: Heart size is normal. No pericardial effusion. Right-sided port with the catheter tip at the cavoatrial junction. No adenopathy. Esophagus is unremarkable. No hiatal hernia. Chest wall and lower neck: Gynecomastia. No axillary adenopathy. No supraclavicular adenopathy. No significant thyroid nodule. Abdomen: Liver: Ill-defined hilar mass measuring 4.3 x 3.7 cm, (5/61), previously 4.8 x 4.5 cm on 10/09/2023. Small calcifications. No new or enlarging lesion. Left lobe lesion demonstrating peripheral nodular discontinuous enhancement measuring 5.2 x 4.4 cm, (5/56), not significantly changed in size and is most consistent with a benign hemangioma. Gallbladder: Not distended. No calcified gallstones. Bile ducts: No dilatation. Pancreas: No peripancreatic fluid collection. Spleen: No splenomegaly. Adrenal glands: Left adrenal mass measuring 3.3 x 3.3 cm, (5/65), previously 3.2 cm, and more remotely 3.2 cm in 2020. Measures less than 10 Hounsfield units on the noncontrast series. Most consistent with an adenoma. Kidneys: No hydronephrosis. No kidney stones. No upper urinary tract filling defect on the delayed series. No solid renal mass. Bowel and peritoneum: Rectosigmoid anastomosis. Normal appendix. No dilated loops of bowel. Stomach is within normal limits. No free fluid. No pneumoperitoneum. Vessels and lymph nodes: No adenopathy. No aortic aneurysm. Abdominal wall: No hernia. Ventral abdominal wall scar. Pelvis: No adenopathy. Prominent prostate gland. Bladder is within normal limits. No stone. Hydroceles. No inguinal hernia. Bones: No suspicious osseous lesion. IMPRESSION: 1. No metastatic disease identified in the chest. 2. Hepatic hilar mass measuring 4.3 cm is decreased in size. 3. Larger hemangioma in the left lobe of the liver is not significantly changed. 4. Left adrenal mass measuring 3.3 cm is unchanged in size. Imaging findings most consistent with a benign adenoma. 5. No adenopathy. No osseous lesion seen. Dictated by: Terrance Watson M.D. on 02/19/2024 at 12:25 Approved by: Terrance Watson M.D. on 02/19/2024 at 13:08
[2024-02-19 10:31] LABS: Estimated Glomerular Filt Rate > 60 mL/min (>60)
== END ==
PROVIDERS: Radiology Diagnostic Radiology; PCP Family Medicine; Referring Provider Internal Medicine Hematology & Oncology; Visit Provider Internal Medicine Hematology & Oncology
DX: C18.8 Malignant neoplasm of overlapping sites of colon (principal); C78.7 Secondary malignant neoplasm of liver and intrahepatic bile duct; D18.09 Hemangioma of other sites; E27.9 Disorder of adrenal gland, unspecified; K76.9 Liver disease, unspecified; Z98.0 Intestinal bypass and anastomosis status
CPT/HCPCS: 36415; 71260; 72193; 74170; 82565; Q9967

== ENCOUNTER → 2024-05-09 11:49 | Outpatient (CLI) | payer MEDICARE, MEDICAID, SELFPAY ==
[2021-07-26 15:04] VITALS: BMI 33.7
--- NOTE | 2024-05-09 11:57 | DI.CT.S_ITS ---
PROCEDURE: CT CHEST ABD PEL W CON INDICATIONS: COLORECTAL CANCER W LIVER METS TECHNIQUE: After the administration of intravenous contrast, 5 mm thick sections acquired from the lung apices to the symphysis. 5 mm coronal and sagittal reformats were performed, with additional 7 mm MIP reformats through the lungs. For radiation dose reduction, the following was used: automated exposure control, adjustment of mA and/or kV according to patient size. COMPARISON: [facility], CT, CT CHEST ABD PEL WWO CON, 02/19/2024, 11:14. [facility], CT, CT CHEST ABD PEL W CON, 10/09/2023, 11:21. FINDINGS: Image quality: Excellent. CHEST: Lower Neck: No enlarged lymph nodes. Thyroid: 2 centimeter right thyroid nodule. Axillae: No enlarged lymph nodes. Chest Wall: Right IJ central venous catheter tip terminates in the cavoatrial junction. Lungs and Pleura: No pneumothorax or pleural effusions. Stable solid nodules. Less conspicuous appearance of the right lower lobe fiber nodularity, favoring scar. Heart: Heart size is normal. No pericardial effusion. Thoracic Vessels: The aorta and pulmonary arteries demonstrate normal size. Mediastinum and Marla: No enlarged lymph nodes. Esophagus: No wall thickening. No hiatal hernia. ABDOMEN: Liver: Decreased size of the central liver mass measuring 4.3 centimeter, previously 5.4 centimeter on 10/09/2023, stable from 02/19/2024. Stable segment 2 hemangioma. No new liver lesions. Gallbladder: No radiopaque gallstones or wall thickening. Biliary ducts: No biliary dilation. Pancreas: No ductal dilation. Spleen: Size is within normal limits. Adrenal Glands: Stable 3.1 centimeter left adrenal nodule. Kidneys and Ureters: No hydronephrosis. No solid mass. No complex renal cystic lesion which requires follow up. Stomach and Bowel: Normal colonic caliber, without significant wall thickening. Partial colectomy, surgical anastomosis in the deep pelvis. Peritoneum: No abnormal intraperitoneal fluid. No free air. Ventral Wall: No significant ventral hernia. Abdominal Nodes: No retroperitoneal or mesenteric adenopathy by size criteria. Vessels: Aorta and inferior vena cava are normal in size. PELVIS: Pelvic Organs: Unremarkable. Bladder: No bladder wall thickening, accounting for underdistention. Pelvic Nodes: No enlarged lymph nodes. Miscellaneous: No inguinal hernias are seen. Bones: No aggressive osseous abnormality. IMPRESSION: Partial colectomy, with surgical anastomosis in the deep pelvis. No lymphadenopathy. Stable size of the liver mass. No new liver lesions identified. Stable left adrenal nodule. 2 centimeter right thyroid nodule. Recommend dedicated outpatient thyroid ultrasound, if not performed in the past. Dictated by: Se Gatica M.D. on 05/12/2024 at 10:41 Approved by: Se Gatica M.D. on 05/12/2024 at 10:50
== END ==
LOC: CT 11:56
PROVIDERS: PCP Family Medicine
DX: C18.9 Malignant neoplasm of colon, unspecified (principal); C78.7 Secondary malignant neoplasm of liver and intrahepatic bile duct; E04.1 Nontoxic single thyroid nodule; E27.9 Disorder of adrenal gland, unspecified; R91.8 Other nonspecific abnormal finding of lung field; Z98.0 Intestinal bypass and anastomosis status; Z90.49 Acquired absence of other specified parts of digestive tract
CPT/HCPCS: 71260; 74177; Q9967

== ENCOUNTER → 2024-08-04 10:13 | Outpatient (CLI) | payer MEDICARE, MEDICAID, SELFPAY ==
[2021-07-26 15:04] VITALS: BMI 33.7
--- NOTE | 2024-08-04 10:15 | DI.CT.S_ITS ---
PROCEDURE: CT CHEST ABD PEL W CON INDICATIONS: Malignant neoplasm of colon, unspecified TECHNIQUE: After the administration of intravenous contrast, 5 mm thick sections acquired from the lung apices to the symphysis. 5 mm coronal and sagittal reformats were performed, with additional 7 mm MIP reformats through the lungs. For radiation dose reduction, the following was used: automated exposure control, adjustment of mA and/or kV according to patient size. COMPARISON: [facility], CT, CT CHEST ABD PEL W CON, 06/23/2021, 10:57. [facility], CT, CT CHEST ABD PEL WWO CON, 02/19/2024, 11:14. [facility], CT, CT CHEST ABD PEL W CON, 05/09/2024, 13:37. FINDINGS: Image quality: Excellent. CHEST: Lower Neck: No enlarged lymph nodes. Thyroid: Thyroid is unchanged. Axillae: No enlarged lymph nodes. Chest Wall: Unremarkable. Lungs and Pleura: No pneumothorax or pleural effusions. Pulmonary nodules are identified. Overall they are stable although mild enlargement is identified in the left lower lobe nodule series 5, image 186 measuring 3 mm compared to 1 mm on prior exam. Heart: Heart size is normal. No pericardial effusion. Thoracic Vessels: The aorta and pulmonary arteries demonstrate normal size. Mediastinum and Marla: No enlarged lymph nodes. Esophagus: No wall thickening. Minimal hiatal hernia. ABDOMEN: Liver: Central liver measures approximately 3.2 x 3.5 cm compared to 3.3 x 3.7 cm. No new masses are identified. Presumed left lobe hemangioma is unchanged. Gallbladder: No radiopaque gallstones or wall thickening. Biliary ducts: No biliary dilation. Pancreas: No ductal dilation. Spleen: Size is within normal limits. Adrenal Glands: Left adrenal is stable. Kidneys and Ureters: No hydronephrosis. No solid mass. No complex renal cystic lesion which requires follow up. Stomach and Bowel: Partial colectomy with anastomotic sutures sutures at the rectosigmoid junction. Peritoneum: No abnormal intraperitoneal fluid. No free air. Ventral Wall: No significant ventral hernia. Abdominal Nodes: No retroperitoneal or mesenteric adenopathy by size criteria. Vessels: Aorta and inferior vena cava are normal in size. PELVIS: Pelvic Organs: Unremarkable. Bladder: No bladder wall thickening, accounting for underdistention. Pelvic Nodes: No enlarged lymph nodes. Miscellaneous: No inguinal hernias are seen. Bones: No aggressive osseous abnormality. IMPRESSION: Pulmonary nodules with left lower lobe nodule demonstrating mild interval increase in size. Recommend continued interval follow-up. Unchanged appearance left adrenal nodule suspicious for metastatic disease. Central hepatic lesion relatively stable in size. No new lesions are identified to suggest additional metastatic disease. Dictated by: Monse Larios M.D. on 08/04/2024 at 23:04 Approved by: Monse Larios M.D. on 08/04/2024 at 23:13
== END ==
LOC: CT 10:14
PROVIDERS: PCP Family Medicine; Referring Provider Internal Medicine; Visit Provider Internal Medicine
DX: C18.9 Malignant neoplasm of colon, unspecified (principal); C78.7 Secondary malignant neoplasm of liver and intrahepatic bile duct; R91.8 Other nonspecific abnormal finding of lung field; E27.8 Other specified disorders of adrenal gland
CPT/HCPCS: 71260; 74177; Q9967

== ENCOUNTER → 2024-09-20 13:26 | Outpatient (CLI) | payer MEDICARE, MEDICAID, SELFPAY ==
[2021-07-26 15:04] VITALS: BMI 33.7
--- NOTE | 2024-09-20 | DI.CT.S_ITS ---
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 5 mm coronal and sagittal reformats were performed, with additional 7 mm MIP reformats through the lungs. For radiation dose reduction, the following was used: automated exposure control, adjustment of mA and/or kV according to patient size. COMPARISON: [facility], CT, CT CHEST ABD PEL W CON, 06/23/2021, 10:57. [facility], CT, CT CHEST ABD PEL W CON, 08/04/2024, 11:45. [facility], CT, CT CHEST ABD PEL W CON, 05/09/2024, 13:37. [facility], CT, CT CHEST ABD PEL W CON, 10/09/2023, 11:21. [facility], CT, CT CHEST ABD PEL W CON, 04/13/2023, 10:59. FINDINGS: Image quality: Excellent. Thyroid: 1.8 cm right inferior thyroid lobe nodule (2/20). Cardiac: Heart size within normal limits. No pericardial effusion. Right Port-A-Cath distal tip at the cavoatrial junction. Aorta: Thoracic aortic diameter within normal limits. Pulmonary Artery: Main pulmonary artery diameter within normal limits. Lungs: No focal lung consolidation. Two unchanged left lower lobe posterior segment nodules measuring between 4-5 mm (5/187; 5/247). Pleura: No pneumothorax or pleural effusion. Airways: The trachea and mainstem bronchi are patent. Lymph Nodes: No mediastinal, hilar, or axillary lymphadenopathy. Esophagus: Within normal limits. Peritoneum: No pneumoperitoneum or ascites. Bones: No acute osseous abnormality. Liver: No significant change in appearance of 4.9 x 3.5 cm heterogenous, hypodense, partially calcified metastasis at the confluence of segments 4A, 4B, 5, and 8 (-). Unchanged segment II 4.3 x 3.8 cm hemangioma (). Transient hepatic hypoattenuation involving the majority of the right hepatic lobe (). Gallbladder: No stones or pericholecystic fluid. Biliary tree: No intrahepatic or extrahepatic biliary ductal dilatation. Pancreas: Within normal limits. Spleen: Normal in size and contour. Kidneys: No hydronephrosis or obstructive urolithiasis. Adrenals: No right adrenal nodularity. Unchanged 2.9 cm left adrenal fat containing mass, likely representing an adenoma which is unchanged dating back to 06/23/2021. Bladder: Normal in size and wall thickness. : No acute abnormality. Stomach: Normal in size and contour. Bowel: Status post prior partial left sigmoidectomy with surgical reanastomosis (11/20). No bowel obstruction.. Appendix within normal limits (). Oral contrast opacifying the stomach small bowel. Lymph Nodes: No retroperitoneal, mesenteric, or inguinal lymphadenopathy. Vascular: No abdominal aortic aneurysm. The visualized arterial vasculature is patent. Soft Tissues: No acute abnormality. IMPRESSION: 1. 1.8 cm right thyroid nodule. Nonemergent thyroid ultrasound follow-up recommended. 2. Unchanged left lower lobe posterior segmental 4-5 mm nodules. 3. No significant change in central hepatic 4.9 cm metastasis with possible post treatment changes. 4. No other CT evidence of metastatic disease in the chest/abdomen/pelvis. Dictated by: Ezequiel Shannon M.D. on 09/21/2024 at 20:49 Approved by: Ezequiel Shannon M.D. on 09/21/2024 at 21:04
== END ==
PROVIDERS: PCP Family Medicine; Referring Provider Student in an Organized Health Care Education/Training Program; Visit Provider Student in an Organized Health Care Education/Training Program
DX: C18.8 Malignant neoplasm of overlapping sites of colon (principal); C78.7 Secondary malignant neoplasm of liver and intrahepatic bile duct; E04.1 Nontoxic single thyroid nodule; R91.8 Other nonspecific abnormal finding of lung field
CPT/HCPCS: 71260; 74177; Q9967

== ENCOUNTER 2024-12-28 11:43 | Emergency (ER) | payer MEDICARE, MEDICAID, SELFPAY ==
[2021-07-26 15:04] VITALS: BMI 33.7
[2024-12-28] VITALS (10 sets, daily range): BP systolic 153–159; BP diastolic 89–97; PULSE 75–97; RESP 16; TEMP 36.6; O2SAT 98–100; BMI 29.1
[2024-12-28 12:38] LABS: Urine Volume 10mL (spun)
[2024-12-28 12:39] LABS: Bacteria Urine None Seen; Culture Indicated Urine Cult Not Indicated; RBC Urine None Seen (0-5/HPF); Squamous Epithelial Cell Urine 0-1 /HPF (0-5/HPF); WBC Urine None Seen (0-5/HPF)
--- NOTE | 2024-12-28 12:48 | EKG_ITS ---
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
[2024-12-28 12:55] LABS: Add Manual Diff / Slide Review NO; Basophils Absolute Auto 0 /uL (0-100); Basophils Percent Auto 0.2 % (0-2); Eosinophils Absolute Auto 0 /uL (0-450); Eosinophils Percent Auto 0.1 % (2-4); Hemoglobin 13.1 g/dL (13.5-17.5); Lymphocytes Absolute Auto 700 /uL (1100-4500); Lymphocytes Percent Auto 12.2 % (25-40); Mean Corpuscular HGB Conc 33.6 % (30-36); Mean Corpuscular Hemoglobin 35.3 PG (26-34); Mean Corpuscular Volume 105.3 fL (80-100); Monocytes Absolute Auto 600 /uL (0-900); Monocytes Percent Auto 11.2 % (3-14); Neutrophils Absolute Auto 4100 /uL (1500-7000); Neutrophils Percent Auto 76.3 % (50-75); Platelet Count 181 X10^3/uL (150-400); Red Cell Distribution Width 15.7 % (11.6-14.8); White Blood Cell Count 5.4 X10^3/uL (4.5-11.0)
--- NOTE | 2024-12-28 12:56 | ED.BACK ---
HPI - Back Pain/Injury General Chief Complaint: Back Pain/Injury Stated Complaint: LRQ Rib Pain Time Seen by Provider: 12/28/24 12:41 Source: patient History of Present Illness HPI Narrative: This is a 54-year-old man who presents by private vehicle complaining of right-sided abdominal pain. Says it woke him from sleep at about 3:00 a.m.. Pain in his right flank and extending down in his right lower quadrant, is not able to really describe the character. It is not associated with nausea or vomiting. He is not associated with changes in bowel habits he had a bowel movement this morning shortly after the pain began without change in his pain. He has not had similar pain in the past. He denies previous abdominal surgeries although has a history of colon cancer and hepatic cancer, oncology notes are not available at this point. The patient has not had fevers he has not had dysuria or frequency. Does not believe that the pain increases with movement. No leg pain or leg swelling and no shortness of breath or cough Related Data Home Medications Medication Instructions Recorded Confirmed cholecalciferol (vitamin D3) 25 25 mcg PO DAILY 05/26/21 07/22/24 mcg (1,000 unit) capsule multivitamin 1 tab PO DAILY 05/26/21 07/22/24 triamcinolone acetonide 0.1 % 1 applictn topical BID PRN Rash 07/20/21 07/22/24 topical cream phenytoin sodium extended 100 mg 130 mg PO BID 07/31/23 07/22/24 capsule (Dilantin Extended) zonisamide 100 mg capsule 100 mg PO DAILY 07/31/23 07/22/24 Previous Rx's Medication Instructions Recorded levetiracetam 1,000 mg tablet 1,000 mg PO TID ##270 01/23/19 (Keppra) primidone 250 mg tablet 250 mg PO TID #270 tabs 01/23/19 acetaminophen 325 mg capsule 650 mg (2 x 325 mg) PO QID PRN 08/30/21 (Tylenol) pain #60 caps lorazepam 0.5 mg tablet 0.5 mg PO ONCE PRN seizure 02/11/24 activity #2 tabs ondansetron 4 mg disintegrating 4 mg PO Q6H #10 tabs 12/28/24 tablet oxycodone 5 mg tablet 5 mg PO Q6H PRN pain #10 tabs 12/28/24 tamsulosin 0.4 mg capsule 0.4 mg PO DAILY #14 caps 12/28/24 Allergies Allergy/AdvReac Type Severity Reaction Status Date / Time No Known Drug Allergies Allergy Verified 07/22/24 17:56 Patient History Medical History (Updated 12/28/24 @ 15:10 by Xiang Montgomery MD) Metastasis to liver Colon cancer metastasized to liver IFG (impaired fasting glucose) Static encephalopathy Seizure Hemorrhoid (~02/15/14) Surgical History History of removal of Port-a-Cath (07/31/23) History of surgery (05/25/23) H/O partial resection of colon (07/26/21) Hx of colonoscopy Hx of oral surgery Family History Father CAD (coronary artery disease) Hypertension Diabetes mellitus Cancer Mother CAD (coronary artery disease) Hypertension Stroke Social History marital status: household members: family alcohol intake: never substance use type: does not use Exam Narrative Exam Narrative: Alert and appears to be in no distress Initial Vital Signs Initial Vital Signs: Vital Signs Temperature 97.8 F 12/28/24 11:46 Pulse Rate 75 12/28/24 11:46 Respiratory Rate 16 12/28/24 11:46 Blood Pressure 159/91 H 12/28/24 11:46 Pulse Oximetry 99 12/28/24 11:46 Oxygen Delivery Method Room Air 12/28/24 11:46 Reviewed [facility] Other: Normocephalic atraumatic Chest Other: Has a central line in the right anterior chest wall, the site does not appear to be infected Resp Other: Lungs are clear with equal breath sounds speaking in full sentences no respiratory distress Cardio Other: Regular rhythm rate no murmur rub or gallop GI Other: Bowel sounds are normal, abdomen is soft with right lower quadrant tenderness no guarding or rebound. Does not have CVAT Neuro Other: Alert and oriented no gross motor deficits Course Orders Ordered: ED Orders 12/28/24 11:59 EKG-12 Lead Stat 12/28/24 12:18 Urine Microscopic Stat 12/28/24 12:48 Complete Blood Count AUTO DIFF Stat Comprehensive Metabolic Panel Stat Lipase Stat 12/28/24 12:56 CT abdomen pelvis w con Stat Discontinued Medications Heparin Sodium (Porcine) (Heparin 500 Unit/5 Ml Port Flush) 500 unit IV PRN PRN PRN Reason: Flush Last Admin: 12/28/24 15:33 Dose: 500 unit Documented By: Ondansetron HCl (Ondansetron 4 Mg/2 Ml Inj) 4 mg IV NOW PRN PRN Reason: Nausea And Vomiting Ondansetron HCl (Ondansetron 4 Mg Odt) 4 mg PO NOW PRN PRN Reason: Nausea And Vomiting Reevaluation(s) Reevaluation #1: Patient remained comfortable in the emergency department, discussed diagnosis and plan for follow-up. Vital Signs Vital signs: Vital Signs - 8 hr 12/28/24 11:46 12/28/24 12:24 12/28/24 12:24 Temperature 97.8 F Pulse Rate 75 76 Respiratory Rate 16 Blood Pressure 159/91 H 158/91 H Pulse Oximetry 99 98 Oxygen Delivery Method Room Air 12/28/24 12:30 12/28/24 12:31 12/28/24 12:31 Temperature Pulse Rate 97 H 81 Respiratory Rate Blood Pressure 158/97 H Pulse Oximetry 99 100 Oxygen Delivery Method 12/28/24 13:00 12/28/24 13:00 12/28/24 13:30 Temperature Pulse Rate 84 89 Respiratory Rate Blood Pressure 155/89 H Pulse Oximetry 99 99 Oxygen Delivery Method 12/28/24 14:00 12/28/24 14:30 12/28/24 15:00 Temperature Pulse Rate 83 81 85 Respiratory Rate Blood Pressure Pulse Oximetry 98 98 99 Oxygen Delivery Method 12/28/24 15:18 Temperature Pulse Rate 86 Respiratory Rate Blood Pressure 153/90 H Pulse Oximetry 100 Oxygen Delivery Method MDM - Back Pain/Injury Lab Data Lab results narrative: CBC with diff and CMP are unremarkable, urinalysis does not show hematuria or evidence of infection 12/28/24 12:48 12/28/24 12:48 Labs: Lab Results 12/28/24 12/28/24 Range/Units 12:18 12:48 WBC 5.4 (4.5-11.0) X10^3/uL RBC 3.70 L (4.5-5.9) X10^6/uL Hgb 13.1 L (13.5-17.5) g/dL Hct 39.0 L (41-53) % MCV 105.3 H (80-100) fL MCH 35.3 H (26-34) PG MCHC 33.6 (30-36) % RDW 15.7 H (11.6-14.8) % Plt Count 181 (150-400) X10^3/uL Neut % (Auto) 76.3 H (50-75) % Lymph % (Auto) 12.2 L (25-40) % Person % (Auto) 11.2 (3-14) % Eos % (Auto) 0.1 L (2-4) % Baso % (Auto) 0.2 (0-2) % Neut # (Auto) 4100 (4152-6356) /uL Lymph # (Auto) 700 L (4431-2319) /uL Person # (Auto) 600 (0-900) /uL Eos # (Auto) 0 (0-450) /uL Baso # (Auto) 0 (0-100) /uL Sodium 136 L (137-145) mmol/L Potassium 3.7 (3.4-5.1) mmol/L Chloride 103 (98-107) mmol/L Carbon Dioxide 22 (22-32) mmol/L BUN 14 (9-20) mg/dL Creatinine 1.04 (0.66-1.25) mg/dL Estimated GFR > 60 (>60) mL/min BUN/Creatinine Ratio 13.5 (6-22) Glucose 134 H (70-100) mg/dL Calcium 8.8 (8.4-10.2) mg/dL Total Bilirubin 0.6 (0.2-1.3) mg/dL AST 39 (17-59) IU/L ALT 22 (<50) IU/L Alkaline Phosphatase 112 (38-126) U/L Total Protein 7.6 (6.3-8.2) g/dL Albumin 4.3 (3.5-5.0) g/dL Globulin 3.3 (1.7-4.1) g/dL Albumin/Globulin Ratio 1.3 (1.0-2.8) Lipase 57 (23-300) U/L Urine RBC None seen (0-5/HPF) Urine WBC None seen (0-5/HPF) Ur Squamous Epith Cells 0-1 /hpf (0-5/HPF) Urine Bacteria None seen (None) Ur Culture Indicated? Cult not indicated Vol Urine Centrifuged 10ml (spun) Urine Dip Bedside Urine Glucose Negative Bedside Urine Bilirubin - Negative Bedside Urine Ketone +/- 5 Urine Specific [place] 1.015 Bedside Urine Occult Blood +/- Bedside Urine pH 7.5 Bedside Urine Protein - Negative Bedside Urine Urobilinogen - Negative Bedside Urine Nitrite - Negative Bedside Urine Leukocytes - Negative Esterase Imaging Data CT scan - abdomen/pelvis: My Impression: Independently reviewed, right hydronephrosis and distal right ureteral stone Radiologist's Impression: [address] [address] [address] Scan Report Signed Patient: Aniceto Jha MR#: [id number] : 1970 Acct:[id number] Age/Sex: 54 / M Date of Service: 12/28/24 Loc: ED Accession Number: [id number] Procedure: CT abdomen pelvis w con Ordering Provider: Xiang Montgomery MD PROCEDURE: CT ABDOMEN PELVIS W CON INDICATIONS: r flank and rlq abd pain TECHNIQUE: After the administration of intravenous contrast, axial sections acquired from the lung bases to the pubic symphysis. Coronal and sagittal reformats were performed. For radiation dose reduction, the following was used: automated exposure control, adjustment of mA and/or kV according to patient size. COMPARISON: [facility], CT, CT CHEST ABD PEL W CON, 09/20/2024, 13:30. [facility], CT, CT ABDOMEN PELVIS W CON, 08/04/2021, 10:34. FINDINGS: Lower Chest: No significant findings. ABDOMEN: Liver: Central hepatic low-density mass lesion now measures 4.4 x 5.8 cm, previously 4.9 x 3.5 cm Gallbladder: No radiopaque gallstones or wall thickening. Biliary ducts: No biliary dilation. Pancreas: No ductal dilation. Spleen: Size is within normal limits. Adrenal Glands: Stable 2.9 cm irregular low-density adrenal nodule Kidneys and Ureters: Distal ureteral 4 mm calculus results in moderate right hydronephrosis and hydroureter, new from the prior. No left hydronephrosis Stomach and Bowel: Normal colonic caliber, without significant wall thickening. Partial left sigmoidectomy with anastomosis Peritoneum: No abnormal intraperitoneal fluid. No free air. Ventral Wall: No significant ventral hernia. Abdominal Nodes: No retroperitoneal or mesenteric adenopathy by size criteria. Vessels: Aorta and inferior vena cava are normal in size. PELVIS: Pelvic Organs: Unremarkable. Bladder: No bladder wall thickening, accounting for underdistention. Pelvic Nodes: No enlarged lymph nodes. Miscellaneous: No inguinal hernias are seen. Bones: No aggressive osseous abnormality. IMPRESSION: Distal right ureteral 4 mm calculus results in moderate right hydronephrosis, new from the prior Central hepatic metastatic mass lesion is slightly larger than the prior exam Stable left adrenal nodule Approved by: Cedric Paez M.D. on 12/28/2024 at 13:34 ECG Data Interpretation: ECG shows normal sinus rhythm at 85 no ischemic changes. MDM Narrative Medical decision making narrative: 54-year-old male presenting with right flank pain. He has a history of hepatic and colon cancer, these do not appear to be relevant to today's presentation. Has findings for a right ureteral stone with hydronephrosis no evidence of infection no evidence of appendicitis. He has been comfortable in the emergency department I discharged him with a prescription for oxycodone Flomax and Zofran. He is to follow up with primary care and Urology. Discharge Plan Departure Patient Disposition: Home Clinical Impression: Calculus of distal right ureter, Renal colic Instructions: Kidney Stones -- Adult Activity Restrictions/Additional Instructions: Emergency department workup today shows you have a kidney stone on the right side. This is down low and will probably pass on its own but it may take several days and you may have some additional episodes of pain in the meantime. You can use Tylenol as needed for pain, you can also take ibuprofen 600 mg up to 3 times a day as needed for pain. I have sent a prescription for oxycodone that you can use for more severe pain. I have also sent a prescription for ondansetron which is a nausea medication as kidney stones often cause nausea. Additionally, I have sent a prescription for tamsulosin. This medication may help you pass system. Use the provided urine strainer so we know when the stone passes. Follow up soon with your primary care provider and Urology. If you have uncontrolled pain uncontrolled vomiting fevers or shaking chills return to the emergency department. Prescriptions: New oxycodone 5 mg tablet 5 mg PO Q6H PRN (Reason: pain) Qty: 10 0RF tamsulosin 0.4 mg capsule 0.4 mg PO DAILY Qty: 14 0RF ondansetron 4 mg tablet,disintegrating 4 mg PO Q6H Qty: 10 0RF No Action levetiracetam [Keppra] 1,000 mg tablet 1,000 mg PO TID Qty: 270 0RF primidone 250 mg tablet 250 mg PO TID Qty: 270 0RF lorazepam 0.5 mg tablet 0.5 mg PO ONCE PRN (Reason: seizure activity) Qty: 2 5RF Rx Instructions: can give a second dose if seizure persists. cholecalciferol (vitamin D3) 25 mcg (1,000 unit) capsule 25 mcg PO DAILY multivitamin Tablet 1 tab PO DAILY acetaminophen [Tylenol] 325 mg capsule 650 mg PO QID PRN (Reason: pain) Qty: 60 0RF triamcinolone acetonide 0.1 % cream 1 applictn TOP BID PRN (Reason: Rash) phenytoin sodium extended [Dilantin Extended] 100 mg capsule 130 mg PO BID Patient Comments: pt takes 130 mg QAM and 100 mg PO QPM zonisamide 100 mg capsule 100 mg PO DAILY Referrals: Luis Daniel Mccall MD [Physician] - Melissa uGnn DO [Primary Care Provider] - Stand Alone Forms: Patient Portal/API/Survey
[2024-12-28 13:07] LABS: Alanine Aminotransferase 22 IU/L (<50); Albumin 4.3 g/dL (3.5-5.0); Albumin Globulin Ratio 1.3 (1.0-2.8); Alkaline Phosphatase 112 U/L (38-126); Aspartate Aminotransferase 39 IU/L (17-59); BUN Creatinine Ratio 13.5 (6-22); Bilirubin Total 0.6 mg/dL (0.2-1.3); Blood Urea Nitrogen 14 mg/dL (9-20); Calcium 8.8 mg/dL (8.4-10.2); Carbon Dioxide 22 mmol/L (22-32); Chloride 103 mmol/L (98-107); Estimated Glomerular Filt Rate > 60 mL/min (>60); Globulin 3.3 g/dL (1.7-4.1); Glucose 134 mg/dL (70-100); HEMOLYSIS 16 (0-50); Lipase 57 U/L (23-300); Potassium 3.7 mmol/L (3.4-5.1); Sodium 136 mmol/L (137-145); Total Protein 7.6 g/dL (6.3-8.2)
== END 2024-12-28 15:35 | disposition home or self-care (01) ==
PROVIDERS: Emergency Medicine; Emergency Provider Emergency Medicine; PCP Family Medicine
DX: N13.2 Hydronephrosis with renal and ureteral calculous obstruction (principal); Z85.038 Personal history of other malignant neoplasm of large intestine; Z85.05 Personal history of malignant neoplasm of liver
CPT/HCPCS: 74177; 80053; 81003; 81015; 83690; 85025; 93005; 99283; 99284; J1642; Q9967

== ENCOUNTER → 2025-01-05 12:58 | Outpatient (ROUT) | payer MEDICARE, MEDICAID, SELFPAY ==
[2021-07-26 15:04] VITALS: BMI 33.7
== END ==
PROVIDERS: PCP Family Medicine; Visit Provider Family Medicine
DX: N20.1 Calculus of ureter (principal); E78.5 Hyperlipidemia, unspecified; Z11.59 Encounter for screening for other viral diseases; Z11.4 Encounter for screening for human immunodeficiency virus [HIV]; R73.01 Impaired fasting glucose
CPT/HCPCS: 82365

== ENCOUNTER → 2025-01-28 12:20 | Outpatient (CLI) | payer MEDICARE, MEDICAID, SELFPAY ==
[2021-07-26 15:04] VITALS: BMI 33.7
[2025-01-28 13:14] LABS: Add Manual Diff / Slide Review NO; Basophils Absolute Auto 0 /uL (0-100); Basophils Percent Auto 0.2 % (0-2); Eosinophils Absolute Auto 100 /uL (0-450); Eosinophils Percent Auto 1.4 % (2-4); Hematocrit 38.3 % (41-53); Hemoglobin 12.7 g/dL (13.5-17.5); Lymphocytes Absolute Auto 1600 /uL (1100-4500); Lymphocytes Percent Auto 23.5 % (25-40); Mean Corpuscular Hemoglobin 35.7 PG (26-34); Mean Corpuscular Volume 107.9 fL (80-100); Monocytes Absolute Auto 600 /uL (0-900); Monocytes Percent Auto 8.3 % (3-14); Neutrophils Absolute Auto 4700 /uL (1500-7000); Neutrophils Percent Auto 66.6 % (50-75); Platelet Count 192 X10^3/uL (150-400); Red Blood Cell Count 3.55 X10^6/uL (4.5-5.9); Red Cell Distribution Width 15.7 % (11.6-14.8)
[2025-01-28 13:26] LABS: Hemoglobin A1C% w Est Avg Glu 4.7 % (4.0-6.0)
[2025-01-28 13:41] LABS: Cholesterol 165 mg/dL (140-199); HDL Cholesterol 83 mg/dL (40-60); LDL Cholesterol Calculated 65 mg/dL (<100); Triglycerides 86 mg/dL (35-150)
[2025-01-28 14:09] LABS: Prostate Specific Antigen Scrn 1.05 ng/mL (0.1-4.0)
[2025-01-29 16:06] LABS: HIV 1 & 2 Ab/Ag 4th Gen Combo NEGATIVE (NEGATIVE); Hep C Virus Ab w/Reflex Quant NEGATIVE s/c (NEGATIVE)
== END ==
PROVIDERS: PCP Family Medicine; Referring Provider Family Medicine; Visit Provider Family Medicine
DX: N20.1 Calculus of ureter (principal); R73.01 Impaired fasting glucose; E78.5 Hyperlipidemia, unspecified; Z12.5 Encounter for screening for malignant neoplasm of prostate; Z11.4 Encounter for screening for human immunodeficiency virus [HIV]; Z11.59 Encounter for screening for other viral diseases
CPT/HCPCS: 36415; 80061; 83036; 85025; 86803; 87389; G0103

== ENCOUNTER → 2025-06-10 11:10 | Outpatient (CLI) | payer MEDICARE, MEDICAID, SELFPAY ==
[2021-07-26 15:04] VITALS: BMI 33.7
[2025-06-10 12:33] LABS: Phenytoin / Dilantin 10.6 ug/mL (10-20)
--- NOTE | 2025-06-17 08:29 | INF.NOTE ---
Order of 06/19/25 to 06/03/[address] Marques for patient to have weekly port lab draws. This nurse spoke with patient's mother Ruma who reported that they will be having the labs drawn at [facility] every other week as Aniceto is in treatment for metastatic colon cancer with Avastin infusions as well as a daily oral chemo. He would like to get the other weeks done here at [facility] and she will call soon to make the appointments. This nurse requested from Ruma that if Dr. Marques changes the frequency of lab draws that she have a new order sent to us. She voiced understanding and agreement.
== END ==
PROVIDERS: PCP Family Medicine; Referring Provider Internal Medicine; Visit Provider Internal Medicine
DX: R56.9 Unspecified convulsions (principal); Z51.81 Encounter for therapeutic drug level monitoring
CPT/HCPCS: 36415; 80185